=== PATIENT | male | born 1960 | race Caucasian/White ===

== ENCOUNTER 2017-08-05 12:15 | Inpatient (IN) ==
--- NOTE | 2017-08-05 12:29 | Emergency Department Note ---
Disposition Clinical Impression: Seizure Syncope Qualifiers: Syncope type: unspecified Qualified Code(s): R55 - Syncope and collapse Headache Qualifiers: Headache type: unspecified Headache chronicity pattern: unspecified pattern Intractability: not intractable Qualified Code(s): R51 - Headache Leukocytosis Qualifiers: Leukocytosis type: unspecified Qualified Code(s): D72.829 - Elevated white blood cell count, unspecified Disposition: Admitted As Inpatient Condition: Good Referrals: NONE,PCP [Primary Care Provider] - Forms: ED Satisfaction Letter Time of Disposition: 15:30 Altered Mental Status HPI - General Chief Complaint: ED Altered Mental Status Stated Complaint: vomiting, confusion, poss seizure Time Seen by Provider: 08/05/17 12:18 Source: patient Mode of arrival: ambulatory Limitations: no limitations Nursing Notes Reviewed: Yes Vital Signs Reviewed: Yes - History of Present Illness HPI Narrative: Patient is a 56-year-old male with past medical history of chronic back pain, currently takes Percocet, tramadol, Neurontin, chronic back pain. He also has a history of hypertension and takes losartan. Initially evening, the patient had multiple episodes of nausea, vomiting, diarrhea. He states that he was unable to sleep. During that time he also had a migraine and took his blood pressure and noted that it was very high. believes that he took 2 extra doses of his losartan. This morning, the patient yelled out, when the found him in the was not responding, had his tongue out, was laying on his side and rolling back and forth. denied seeing any tonic-clonic activity. No laceration to tongue, no urination. The patient was not oriented to person, place, or time when the found him. EMS was called. EMS states that the patient was not oriented to person, place, time on their exam either. During the drive here over 30 minutes, the patient became completely alert, oriented 3. No focal neurologic deficits were found. The patient himself denies any current symptoms of chest pain, shortness breath, nausea, vomiting, diarrhea, abdominal pain, neck pain, fevers, any numbness, tingling, weakness. He does complain of lumbar back pain that is chronic. - Related Data Home Medications Medication Instructions Recorded Confirmed Cymbalta 60 mg PO DAILY 08/05/17 08/05/17 Gabapentin [Neurontin] 100 mg PO DAILY 08/05/17 08/05/17 Losartan [Cozaar] 100 mg PO DAILY 08/05/17 08/05/17 OxyCODONE/APAP 10/325 [Percocet 15 mg PO 5XD 08/05/17 08/05/17 10/325 MG] Tramadol HCl [Ultram] 50 mg PO QID 08/05/17 08/05/17 Allergies Allergy/AdvReac Type Severity Reaction Status Date / Time codeine Allergy Rash Verified 02/20/15 09:09 All systems ED: reviewed and negative except as stated. Constitutional: Denies: fever Cardiovascular: Denies: chest pain Respiratory: Denies: cough, dyspnea Gastrointestinal: Denies: abdominal pain, nausea, vomiting, diarrhea Genitourinary: Denies: urgency, dysuria, frequency, hematuria Integumentary: Denies: rash Neurological: Denies: headache, weakness, numbness, paresthesias Past Medical History - Past Medical History Attestation: Yes The following information was validated with the patient. Source: patient Medical history: Reports: other Surgical history: Reports: other Psychiatric history: Reports: no psych history - Social History Smoking Status: Never smoker Alcohol use: Reports: none Drug use: Reports: none Physical Exam - General Limitations: no limitations General appearance: alert, in no apparent distress - Head Head exam: atraumatic, normocephalic, normal inspection - Eye Eye exam: Present: normal appearance, PERRL, EOMI - ENT ENT exam: normal exam, normal oropharynx, mucous membranes moist - Neck Neck exam: Present: normal inspection, full ROM, trachea midline - Chest Chest inspection: Present: normal inspection, symmetric chest wall rise - Respiratory Respiratory exam: Present: normal lung sounds bilaterally - Cardiovascular Cardiovascular exam: Present: regular rate, normal rhythm, normal heart sounds - Abdominal Exam Abdominal exam: Present: soft, Non-Tender. Absent: tenderness, distention, guarding, rebound, rigidity - Extremities Exam Extremities exam: Present: normal inspection, full ROM. Absent: tenderness, pedal edema - Neurological Exam Neurological exam: Present: alert, oriented X3, CN II-XII intact. Absent: motor sensory deficit - Expanded Neurological Exam Patient oriented to: Present: person, place, time Speech: Present: fluid speech Cranial nerves: EOM function (II, III, IV, ): Normal, facial sensation (V): Normal, facial palsy (VII): Normal, spinal accessory function (XI): Normal, tongue deviation (XII): Normal Motor strength - LUE: 5/5 Motor strength - RUE: 5/5 Motor strength - LLE: 5/5 Motor strength - RLE: 5/5 Sensory exam upper extremity: light touch: Normal Sensory exam lower extremity: light touch: Normal Coma Scale Eye Opening: Spontaneous Coma Scale Motor Response: Obeys Commands Coma Scale Verbal Response: Oriented Coma Scale Total: 15 - Psychiatric Psychiatric exam: Present: normal affect, normal mood - Skin Skin exam: Present: warm, dry, intact, normal color Course Course Narrative: Currently, patient is alert and oriented 3, no focal neuro deficits. From description of events, it is unclear if patient had syncope or possible seizure- like activity. It does sound like he had a post ictal period. We will obtain CT of the head and neck, basic blood work, chest x-ray, EKG, troponin. We will consider loading with Keppra. 15:25 workup shows leukocytosis of 25. Otherwise, no acute intracranial process. No major electrolyte abnormality. Urinalysis negative. His x-ray did show a right upper lobe pulmonary mass versus nodule versus opacity. I did recommend to the patient that he eventually have a CT evaluation of this area within the next 3-6 months to assess for any changes in size. Patient is now complaining of headache. I talked with neurology and they did not want me to load with Keppra as a stated that he would be unusual for the patient to have new onset epilepsy at his age. They recommended a lumbar puncture to assess for anything like herpetic encephalitis or meningitis. I discussed thoroughly the risk and benefits of the lumbar puncture and the patient has refused. He is adamant about not having the procedure done. He understands that if he does not have this done, there can be information meningitis or herpetic encephalitis. He states that he will only do lumbar puncture if he is sedated. We will recommend hospitalist that interventional radiology be contacted for lumbar puncture. In the meantime, patient is empirically started on vancomycin , gentamicin, ampicillin, Rocephin, acyclovir. Patient is given Toradol addition for headache. He will be admitted for further care and workup. Consult has been placed to neurology. Currently syncope vs seizure vs encephalitis/meningitis. Vital Signs Temperature 98.7 F 08/05/17 12:28 Pulse Rate 59 08/05/17 12:28 Respiratory Rate 23 08/05/17 12:28 Blood Pressure 192/136 08/05/17 12:28 O2 Sat by Pulse Oximetry 98 08/05/17 12:28 Temperature 98.7 F 08/05/17 12:28 Pulse Rate 81 08/05/17 15:02 Respiratory Rate 16 08/05/17 15:02 Blood Pressure 200/143 08/05/17 15:02 O2 Sat by Pulse Oximetry 96 08/05/17 15:02 Oxygen Delivery Oxygen Delivery Room Air Altered Mental Status - MDM Narrative Medical decision making narrative: Currently, patient is alert and oriented 3, no focal neuro deficits. From description of events, it is unclear if patient had syncope or possible seizure- like activity. It does sound like he had a post ictal period. We will obtain CT of the head and neck, basic blood work, chest x-ray, EKG, troponin. We will consider loading with Keppra. 15:25 workup shows leukocytosis of 25. Otherwise, no acute intracranial process. No major electrolyte abnormality. Urinalysis negative. His x-ray did show a right upper lobe pulmonary mass versus nodule versus opacity. I did recommend to the patient that he eventually have a CT evaluation of this area within the next 3-6 months to assess for any changes in size. Patient is now complaining of headache. I talked with neurology and they did not want me to load with Keppra as a stated that he would be unusual for the patient to have new onset epilepsy at his age. They recommended a lumbar puncture to assess for anything like herpetic encephalitis or meningitis. I discussed thoroughly the risk and benefits of the lumbar puncture and the patient has refused. He is adamant about not having the procedure done. He understands that if he does not have this done, there can be information meningitis or herpetic encephalitis. He states that he will only do lumbar puncture if he is sedated. We will recommend hospitalist that interventional radiology be contacted for lumbar puncture. In the meantime, patient is empirically started on vancomycin , gentamicin, ampicillin, Rocephin, acyclovir. Patient is given Toradol addition for headache. He will be admitted for further care and workup. Consult has been placed to neurology. Currently syncope vs seizure vs encephalitis/meningitis. - Medical Records Medical records reviewed: Yes I reviewed the patient's medical records. - Lab Data Lab results reviewed: Yes I reviewed the patient's lab results. Result diagrams: 08/05/17 12:26 08/05/17 12:26 Lab Results 08/05/17 08/05/17 08/05/17 Range/Units 12:26 12:26 12:26 WBC 25.0 H (4.3-11.1) K/mcL RBC 5.04 (4.19-5.50) M/mcL Hgb 15.4 (12.9-16.9) g/dL Hct 42.3 (37.5-50.1) % MCV 83.9 (83.0-100.0) fL MCH 30.6 (28.0-33.3) pg MCHC 36.4 H (31.6-35.5) g/dL RDW 12.8 (11.5-14.5) % Plt Count 301 (140-400) K/mcL MPV 8.9 L (9.4-12.4) fL Seg Neutrophils % 86.0 % Band Neutrophils % 8.0 H (0-4) % Lymphocytes % 6.0 % Neutrophils # 23.5 H (1.6-8.9) K/mcL Lymphocytes # 1.5 (0.6-4.6) K/mcL Platelet Estimate Normal (Normal) PT 11.4 (9.4-12.1) Seconds INR 1.1 APTT 29.3 (26.0-36.0) Seconds Sodium 130 L (136-145) mEq/L Potassium 4.1 (3.5-5.1) mEq/L Chloride 95 L (98-107) mEq/L Carbon Dioxide 19 L (23-29) mEq/L BUN 10 (6-20) mg/dL Creatinine 0.85 (0.70-1.30) mg/dL Est GFR ( Amer) > 60 (> 60) Est GFR (Non-Af Amer) > 60 (> 60) BUN/Creatinine Ratio 12 (6-26) Glucose 223 H (70-105) mg/dL Calculated Osmolality 276 L (280-300) Calcium 10.0 (8.6-10.3) mg/dL Total Bilirubin 0.6 (0.3-1.0) mg/dL AST 26 (13-39) Units/L ALT 22 (7-52) Units/L Alkaline Phosphatase 136 H (34-104) Units/L Troponin I < 0.03 (< 0.04) ng/mL Serum Total Protein 7.8 (6.4-8.9) g/dL Albumin 4.9 (3.5-5.7) g/dL Globulin 2.9 (2.4-3.5) g/dL Albumin/Globulin Ratio 1.7 (1.1-2.2) Urine Color (Yellow) Urine Clarity (Clear) Urine pH (5.0-8.0) pH Units Ur Specific [place] (1.010-1.025) Urine Protein (Neg-Trace) mg/dL Urine Glucose (UA) (Normal) mg/dL Urine Ketones (Negative) mg/dL Urine Blood (Negative) Urine Nitrite (Negative) Urine Bilirubin (Negative) Urine Urobilinogen (Normal) mg/dL Ur Leukocyte Esterase (Negative) Urine Microscopic RBC (0-3) per hpf Urine Microscopic WBC (0-3) per hpf Ur Squamous Epith Cells (None-Few) per lpf Urine Bacteria (None-Few) per hpf Hyaline Casts (None-Few) per lpf Ur Culture Indicated? (NO) 08/05/17 Range/Units 12:40 WBC (4.3-11.1) K/mcL RBC (4.19-5.50) M/mcL Hgb (12.9-16.9) g/dL Hct (37.5-50.1) % MCV (83.0-100.0) fL MCH (28.0-33.3) pg MCHC (31.6-35.5) g/dL RDW (11.5-14.5) % Plt Count (140-400) K/mcL MPV (9.4-12.4) fL Seg Neutrophils % % Band Neutrophils % (0-4) % Lymphocytes % % Neutrophils # (1.6-8.9) K/mcL Lymphocytes # (0.6-4.6) K/mcL Platelet Estimate (Normal) PT (9.4-12.1) Seconds INR APTT (26.0-36.0) Seconds Sodium (136-145) mEq/L Potassium (3.5-5.1) mEq/L Chloride (98-107) mEq/L Carbon Dioxide (23-29) mEq/L BUN (6-20) mg/dL Creatinine (0.70-1.30) mg/dL Est GFR ( Amer) (> 60) Est GFR (Non-Af Amer) (> 60) BUN/Creatinine Ratio (6-26) Glucose (70-105) mg/dL Calculated Osmolality (280-300) Calcium (8.6-10.3) mg/dL Total Bilirubin (0.3-1.0) mg/dL AST (13-39) Units/L ALT (7-52) Units/L Alkaline Phosphatase (34-104) Units/L Troponin I (< 0.04) ng/mL Serum Total Protein (6.4-8.9) g/dL Albumin (3.5-5.7) g/dL Globulin (2.4-3.5) g/dL Albumin/Globulin Ratio (1.1-2.2) Urine Color Yellow (Yellow) Urine Clarity Clear (Clear) Urine pH 6.0 (5.0-8.0) pH Units Ur Specific [place] 1.016 (1.010-1.025) Urine Protein 100 H (Neg-Trace) mg/dL Urine Glucose (UA) 100 H (Normal) mg/dL Urine Ketones Negative (Negative) mg/dL Urine Blood Moderate H (Negative) Urine Nitrite Negative (Negative) Urine Bilirubin Negative (Negative) Urine Urobilinogen Normal (Normal) mg/dL Ur Leukocyte Esterase Negative (Negative) Urine Microscopic RBC 5-15 H (0-3) per hpf Urine Microscopic WBC 0-3 (0-3) per hpf Ur Squamous Epith Cells Few (None-Few) per lpf Urine Bacteria None Seen (None-Few) per hpf Hyaline Casts None Seen (None-Few) per lpf Ur Culture Indicated? NO (NO) - Radiology Data Radiology results reviewed: Yes I reviewed the patient's radiology results. Chest X-Ray 08/05/17 12:26 IMPRESSION: 1. Questionable right infrahilar airspace opacity or mass. Consider further evaluation with CT. 2. Pulmonary vascular congestion. D/ / Akash Pride MD / Akash Pride MD Interpreting Provider: Akash Pride MD Cervical Spine CT 08/05/17 12:28 IMPRESSION: 1. No acute intracranial abnormality. 2. Paranasal sinusitis, as detailed above. 3. Mild left mastoid disease. 4. No acute fracture or subluxation of the cervical spine. D/ /05/2017 13:35:34 Otis Delgado MD / amor Interpreting Provider: Otis Delgado MD Head CT 08/05/17 12:28 IMPRESSION: 1. No acute intracranial abnormality. 2. Paranasal sinusitis, as detailed above. 3. Mild left mastoid disease. 4. No acute fracture or subluxation of the cervical spine. D/ /05/2017 13:35:34 Otis Delgado MD / amor Interpreting Provider: Otis Delgado MD - EKG Data EKG attestation: Yes I reviewed and interpreted this EKG. EKG results narrative: 08/05/2017 at 12:23. Sinus bradycardia. Rate 58. AK 151. QRS 99. QTc 440. Normal axis. No acute ST elevation or depression. TPA Checklist - LKW: 3-4.5 hrs Add. Warnings/Precautions Patient/family understanding: The patient/family members have been counseled and understood the risk, benefit , and alternatives of treatment. S.B.A.R. - S.B.A.R. Situation: Demographics, MOA Background: Presenting Complaint, Relevant PMH, Meds, & Allergies Assessment: Vital Signs, Course and respsone to treatment, Exam Concerns, Patient/Family Expectation, Pertinant Lab Results Recommendation: Barrier(s) to disposition, Recommendation based on pending studies, treatments, or consults S.B.A.R. Report Given to: Dr. Saldaña
[2017-08-05 12:41] LABS: Hematocrit 42.3 % (37.5-50.1); Hemoglobin 15.4 g/dL (12.9-16.9); Lymphocytes # 1.5 K/mcL (0.6-4.6); Mean Corpuscular HGB Conc 36.4 g/dL (31.6-35.5); Mean Corpuscular Hemoglobin 30.6 pg (28.0-33.3); Mean Corpuscular Volume 83.9 fL (83.0-100.0); Mean Platelet Volume 8.9 fL (9.4-12.4); Platelet Count 301 K/mcL (140-400); Red Blood Count 5.04 M/mcL (4.19-5.50); Red Cell Distribution Width 12.8 % (11.5-14.5)
[2017-08-05 12:47] LABS: INR 1.1; Prothrombin Time 11.4 Seconds (9.4-12.1)
[2017-08-05 12:49] LABS: Activated Partial Thrombo Time 29.3 Seconds (26.0-36.0)
[2017-08-05 12:59] LABS: Troponin I < 0.03 ng/mL (< 0.04)
[2017-08-05 13:11] LABS: Alanine Aminotransferase 22 Units/L (7-52); Albumin 4.9 g/dL (3.5-5.7); Albumin/Globulin Ratio 1.7 (1.1-2.2); Alkaline Phosphatase 136 Units/L (34-104); Aspartate Amino Transferase 26 Units/L (13-39); BUN/Creatinine Ratio 12 (6-26); Bilirubin,Total 0.6 mg/dL (0.3-1.0); Blood Urea Nitrogen 10 mg/dL (6-20); Carbon Dioxide 19 mEq/L (23-29); Chloride 95 mEq/L (98-107); Globulin 2.9 g/dL (2.4-3.5); Glucose 223 mg/dL (70-105); Osmolality,Calculated 276 (280-300); Potassium 4.1 mEq/L (3.5-5.1); Sodium 130 mEq/L (136-145); Total Protein 7.8 g/dL (6.4-8.9); eGFR For African Americans > 60 (> 60); eGFR For Non-African Americans > 60 (> 60)
[2017-08-05 13:13] LABS: Bilirubin,Urine Negative (Negative); Blood,Urine Moderate (Negative); Clarity,Urine Clear (Clear); Color,Urine Yellow (Yellow); Glucose,Urine (UA) 100 mg/dL (Normal); Ketones,Urine Negative (Negative); Leukocyte Esterase,Urine Negative (Negative); Nitrite,Urine Negative (Negative); Protein,Urine 100 mg/dL (Neg-Trace); Specific Gravity,Urine 1.016 (1.010-1.025); Urobilinogen,Urine Normal (Normal)
[2017-08-05 13:18] LABS: Bacteria,Urine None Seen per hpf (None-Few); Hyaline Casts,Urine None Seen per lpf (None-Few); Squamous Epithelial Cell,Urine Few per lpf (None-Few); WBC,Urine 0-3 per hpf (0-3)
[2017-08-05 13:50] LABS: Neutrophils # 23.5 K/mcL (1.6-8.9); Platelet Estimate Normal (Normal)
[2017-08-05] MEDS ORDERED: *HR* OxyCODONE/APAP 10/325 TABLET PO ONE (14:05)
[2017-08-05] MEDS ORDERED: Ampicillin 2 GM in 0.9 % Sodium Chloride Mini Bag 100 ML IVPB ONE (14:07)
[2017-08-05] MEDS ORDERED: cefTRIAXone 2,000 MG in Water for inj. (sterile) 20 ML 20 ML IVP ONE (14:08)
[2017-08-05] MEDS ORDERED: Acyclovir 1,000 MG in D5% in Water 250 ML IVPB ONE (14:12)
[2017-08-05] MEDS ORDERED: Gentamicin 440 MG in 0.9 % Sodium Chloride 100 ML IVPB ONE (15:00)
[2017-08-05] MEDS ORDERED: 0.9 % Sodium Chloride 1,000 ML IVC ONE (15:01)
--- NOTE | 2017-08-05 15:06 | Emergency Department Note ---
Disposition Clinical Impression: Seizure Disposition: Admitted As Inpatient Referrals: NONE,PCP [Primary Care Provider] - Forms: ED Satisfaction Letter General Adult HPI - General Chief complaint: ED Altered Mental Status Stated complaint: vomiting, confusion, poss seizure Time Seen by Provider: 08/05/17 12:18 Source: patient Mode of arrival: ambulatory Limitations: no limitations - History of Present Illness Pain Scale: 10 - Related Data Home Medications Medication Instructions Recorded Confirmed Cymbalta 60 mg PO DAILY 08/05/17 08/05/17 Gabapentin [Neurontin] 100 mg PO DAILY 08/05/17 08/05/17 Losartan [Cozaar] 100 mg PO DAILY 08/05/17 08/05/17 OxyCODONE/APAP 10/325 [Percocet 15 mg PO 5XD 08/05/17 08/05/17 10/325 MG] Tramadol HCl [Ultram] 50 mg PO QID 08/05/17 08/05/17 Allergies Allergy/AdvReac Type Severity Reaction Status Date / Time codeine Allergy Rash Verified 02/20/15 09:09 Constitutional: Denies: fever Cardiovascular: Denies: chest pain Respiratory: Denies: cough, dyspnea Gastrointestinal: Denies: abdominal pain, nausea, vomiting, diarrhea Genitourinary: Denies: urgency, dysuria, frequency, hematuria Integumentary: Denies: rash Neurological: Denies: headache, weakness, numbness, paresthesias Past Medical History - Past Medical History Medical history: Reports: other Surgical history: Reports: other Psychiatric history: Reports: no psych history - Social History Smoking Status: Never smoker Alcohol use: Reports: none Drug use: Reports: none Physical Exam - General Limitations: no limitations General appearance: alert, in no apparent distress Course Vital Signs Temperature 98.7 F 08/05/17 12:28 Pulse Rate 59 08/05/17 12:28 Respiratory Rate 23 08/05/17 12:28 Blood Pressure 192/136 08/05/17 12:28 O2 Sat by Pulse Oximetry 98 08/05/17 12:28 Temperature 98.7 F 08/05/17 12:28 Pulse Rate 81 08/05/17 15:02 Respiratory Rate 16 08/05/17 15:02 Blood Pressure 200/143 08/05/17 15:02 O2 Sat by Pulse Oximetry 96 08/05/17 15:02 Oxygen Delivery Oxygen Delivery Room Air Medical Decision Making - Lab Data Result diagrams: 08/05/17 12:26 08/05/17 12:26 Lab Results 08/05/17 08/05/17 08/05/17 Range/Units 12:26 12:26 12:26 WBC 25.0 H (4.3-11.1) K/mcL RBC 5.04 (4.19-5.50) M/mcL Hgb 15.4 (12.9-16.9) g/dL Hct 42.3 (37.5-50.1) % MCV 83.9 (83.0-100.0) fL MCH 30.6 (28.0-33.3) pg MCHC 36.4 H (31.6-35.5) g/dL RDW 12.8 (11.5-14.5) % Plt Count 301 (140-400) K/mcL MPV 8.9 L (9.4-12.4) fL Seg Neutrophils % 86.0 % Band Neutrophils % 8.0 H (0-4) % Lymphocytes % 6.0 % Neutrophils # 23.5 H (1.6-8.9) K/mcL Lymphocytes # 1.5 (0.6-4.6) K/mcL Platelet Estimate Normal (Normal) PT 11.4 (9.4-12.1) Seconds INR 1.1 APTT 29.3 (26.0-36.0) Seconds Sodium 130 L (136-145) mEq/L Potassium 4.1 (3.5-5.1) mEq/L Chloride 95 L (98-107) mEq/L Carbon Dioxide 19 L (23-29) mEq/L BUN 10 (6-20) mg/dL Creatinine 0.85 (0.70-1.30) mg/dL Est GFR ( Amer) > 60 (> 60) Est GFR (Non-Af Amer) > 60 (> 60) BUN/Creatinine Ratio 12 (6-26) Glucose 223 H (70-105) mg/dL Calculated Osmolality 276 L (280-300) Calcium 10.0 (8.6-10.3) mg/dL Total Bilirubin 0.6 (0.3-1.0) mg/dL AST 26 (13-39) Units/L ALT 22 (7-52) Units/L Alkaline Phosphatase 136 H (34-104) Units/L Troponin I < 0.03 (< 0.04) ng/mL Serum Total Protein 7.8 (6.4-8.9) g/dL Albumin 4.9 (3.5-5.7) g/dL Globulin 2.9 (2.4-3.5) g/dL Albumin/Globulin Ratio 1.7 (1.1-2.2) Urine Color (Yellow) Urine Clarity (Clear) Urine pH (5.0-8.0) pH Units Ur Specific [place] (1.010-1.025) Urine Protein (Neg-Trace) mg/dL Urine Glucose (UA) (Normal) mg/dL Urine Ketones (Negative) mg/dL Urine Blood (Negative) Urine Nitrite (Negative) Urine Bilirubin (Negative) Urine Urobilinogen (Normal) mg/dL Ur Leukocyte Esterase (Negative) Urine Microscopic RBC (0-3) per hpf Urine Microscopic WBC (0-3) per hpf Ur Squamous Epith Cells (None-Few) per lpf Urine Bacteria (None-Few) per hpf Hyaline Casts (None-Few) per lpf Ur Culture Indicated? (NO) 08/05/17 Range/Units 12:40 WBC (4.3-11.1) K/mcL RBC (4.19-5.50) M/mcL Hgb (12.9-16.9) g/dL Hct (37.5-50.1) % MCV (83.0-100.0) fL MCH (28.0-33.3) pg MCHC (31.6-35.5) g/dL RDW (11.5-14.5) % Plt Count (140-400) K/mcL MPV (9.4-12.4) fL Seg Neutrophils % % Band Neutrophils % (0-4) % Lymphocytes % % Neutrophils # (1.6-8.9) K/mcL Lymphocytes # (0.6-4.6) K/mcL Platelet Estimate (Normal) PT (9.4-12.1) Seconds INR APTT (26.0-36.0) Seconds Sodium (136-145) mEq/L Potassium (3.5-5.1) mEq/L Chloride (98-107) mEq/L Carbon Dioxide (23-29) mEq/L BUN (6-20) mg/dL Creatinine (0.70-1.30) mg/dL Est GFR ( Amer) (> 60) Est GFR (Non-Af Amer) (> 60) BUN/Creatinine Ratio (6-26) Glucose (70-105) mg/dL Calculated Osmolality (280-300) Calcium (8.6-10.3) mg/dL Total Bilirubin (0.3-1.0) mg/dL AST (13-39) Units/L ALT (7-52) Units/L Alkaline Phosphatase (34-104) Units/L Troponin I (< 0.04) ng/mL Serum Total Protein (6.4-8.9) g/dL Albumin (3.5-5.7) g/dL Globulin (2.4-3.5) g/dL Albumin/Globulin Ratio (1.1-2.2) Urine Color Yellow (Yellow) Urine Clarity Clear (Clear) Urine pH 6.0 (5.0-8.0) pH Units Ur Specific [place] 1.016 (1.010-1.025) Urine Protein 100 H (Neg-Trace) mg/dL Urine Glucose (UA) 100 H (Normal) mg/dL Urine Ketones Negative (Negative) mg/dL Urine Blood Moderate H (Negative) Urine Nitrite Negative (Negative) Urine Bilirubin Negative (Negative) Urine Urobilinogen Normal (Normal) mg/dL Ur Leukocyte Esterase Negative (Negative) Urine Microscopic RBC 5-15 H (0-3) per hpf Urine Microscopic WBC 0-3 (0-3) per hpf Ur Squamous Epith Cells Few (None-Few) per lpf Urine Bacteria None Seen (None-Few) per hpf Hyaline Casts None Seen (None-Few) per lpf Ur Culture Indicated? NO (NO) Attestation Statement - Attestation Attestation: I examined this patient and my medical decision-making was reviewed with the Resident Physician. I agree with the documented findings, disposition and treatment plan as described except to the extent set forth below. 56 year old male prsentse to the ED with complaints of new onset seizure with elevated WBC and post -ictal period after witnessed seizure. We are concernd for mengigitis/encephaltiis and have consutled neurolgoy. He has delcined LP secondary to chronic back pain and woul dike IR to attempt LP unders sedation. Patient has been empirically started on amp/rocpehin/vanc/acyclovir and admit to medicine
[2017-08-05] MEDS ORDERED: Ketorolac 15 MG/ML VIAL IVP ONE (15:25)
[2017-08-05] MEDS: niCARdipine 40 MG/200 ML MLS IVC SCH ×2 (16:11→23:16)
[2017-08-05 16:17] LABS: Bilirubin,Direct 0.1 mg/dL (0.0-0.2); Bilirubin,Indirect 0.5 mg/dL (0.0-1.2)
[2017-08-05] MEDS ORDERED: Naloxone 0.4 MG/ML INJ IVP PRN (17:04)
--- NOTE | 2017-08-05 17:18 | Internal Med History&Physical ---
Date of Encounter: 08/05/17 Time of Encounter: 17:11 Internal Medicine - H&P: HPI Chief complaint: headache/Seizure like acivity. Admitted From: Emergency Dept Plans for Post Hospital Care: Home History of present illness: Mr. Giang is a 56 year old male was a background medical history of hypertension, chronic back pain for which he is getting evaluated. Patient takes multiple pain medications/muscle relaxants for chronic back pain. This morning it was noted by patient's that patient was restless and was passed out with from the tongue and eyes were rolled back. She was concern about this finding. She calls called and decided to get patient to emergency room for further evaluation. According to the squad patient was alert oriented and they brought him to emergency department. Patient had a nausea vomiting diarrhea for the past 3-4 days. Patient denies chest pain, shortness of breath, dizziness. Workup in the emergency room: Patient was evaluated in the emergency room. Basic labs were drawn. Noted that patient has a leukocytosis. Band cells were 8%. Chest x-ray: Possible hilar mass. CT head/CT neck: Negative for any acute fractures/intracranial event. Reason for admission: Possible meningitis/encephalitis. New-onset seizure cannot be ruled out. Family history: Noncontributory Past Med Surg Social Fam HX - Past Medical History Medical history: other Psychiatric history: no psych history - Past Surgical History Surgical History: other - Social History Smoking Status: Never smoker Alcohol use: none Drug use: none Internal Medicine - H&P: Meds Duloxetine HCl [Cymbalta] 60 mg PO BID 08/05/17 [History] Gabapentin [Neurontin] 600 mg PO DAILY 08/05/17 [History] Losartan [Cozaar] 100 mg PO DAILY 08/05/17 [History] Oxycodone HCl 15 mg PO Q4-6H PRN 08/05/17 [History] Tramadol HCl [Ultram] 50 mg PO QID PRN 08/05/17 [History] 3 Allergy/AdvReac Type Severity Reaction Status Date / Time codeine Allergy Rash Verified 08/05/17 15:37 All Systems PM: A 10-system review of systems was performed and is negative for pertinent findings except as documented above in the HPI. - Constitutional Constitutional: lethargy, malaise, weakness, no chills, no fever(s), no night sweats - EENT Eyes: no change in vision, no discharge, no pain, no photophobia Ears: no ear discharge, no ear pain, no tinnitus Nose, mouth and throat: no dysphagia, no nasal discharge, no neck pain, no sore throat - Cardiovascular Cardiovascular ROS IM: no chest pain, no diaphoresis, no dyspnea, no lightheadedness, no palpitations, no syncope - Respiratory Respiratory: no cough, no dyspnea, no wheezing, no excessive phlegm production - Gastrointestinal Gastrointestinal: no abdominal pain, no diarrhea, no hematemesis, no hematochezia, no melena, no nausea, no vomiting - Musculoskeletal Musculoskeletal ROS IM: no numbness, no tingling - Integumentary Integumentary IM: no rash, no unusual bruising - Neurological Neurological ROS: abnormal gait, confusion, headache(s), paresthesias, no convulsions, no focal weakness, no numbness, no tingling, no tremor(s) - Hematologic/Lymphatic Hematologic/Lymphatic: no easy bruising - Constitutional Vitals: Temp Pulse Resp BP Pulse Ox 98.7 F 101 12 162/112 97 08/05/17 12:28 08/05/17 16:17 08/05/17 16:17 08/05/17 16:43 08/05/17 16:17 General appearance: Present: A&O X 3, morbidly obese, pleasant, no acute distress, answers questions appropriately - Head Head exam: Present: atraumatic, normocephalic - Eye Eye exam: Present: PERRL, conjuntiva pink, sclera anicteric Pupils: Present: PERRL - Neck Neck exam general surgery: Present: supple, trachea midline. Absent: lymphadenopathy - Respiratory Respiratory exam: Present: CTAB. Absent: accessory muscle use, rales, rhonchi, wheezes - Cardiovascular Cardiovascular exam: Present: RRR, +S1, +S2. Absent: diastolic murmur, gallop, rubs, systolic murmur - GI/Abdominal GI/Abdominal exam: Present: normal bowel sounds, soft, no peritoneal signs. Absent: distended, tenderness - Extremities Exam Extremities exam: Present: warm, radial pulses palpable and symmetrical. Absent : calf tenderness, cyanotic, pedal edema - Neurological Exam Neurological exam: Present: CN II-XII intact, oriented X3, no focal deficits. Absent: pronater drift, facial droop, speech deficit - Skin Skin exam: Present: dry, intact Internal Med - H&P Results - Labs CBC & Chem 7: 08/05/17 12:26 08/05/17 12:26 - Assessment and plan (1) Headache Current Visit: Yes Status: Acute Assessment and plan: 56/male Ongoing back pain. Had a GI symptoms for past 2-3 days. Came in with seizure-like activity. Emergency room resident called neurologist. We will follow the recommendations from neurology. At this point neurologist preferred to treat as a meningitis/encephalitis. Plan: Admit as inpatient. Vancomycin/ampicillin/ceftriaxone/acyclovir. MRI ordered. EEG ordered. Close monitoring of the vital status. I examined this patient in the emergency department room #21. All family members were bedside. plan of care discussed with them. Qualifiers: Headache type: unspecified Headache chronicity pattern: unspecified pattern Intractability: not intractable Qualified Code(s): R51 - Headache (2) Leukocytosis Current Visit: Yes Status: Acute Assessment and plan: Noted that patient's white blood cell count is 25. patient is a 8% bandemia. We will continue broad-spectrum antibiotics. Qualifiers: Leukocytosis type: bandemia Qualified Code(s): D72.825 - Bandemia (3) Seizure Current Visit: Yes Status: Acute Assessment and plan: Patient does have a seizure-like activity. I spoke personally with the ER resident who was advised by neurology not to start on any antiepileptic medication. Seizure precaution Fall precaution (4) Backache Current Visit: Yes Status: Acute Assessment and plan: Patient is known to have a low backache for many months. He is getting monitored by pain specialist. Patient is on multiple pain medication. We will resume some of them. Close monitoring of the patient's back pain Qualifiers: Back pain location: low back pain Chronicity: unspecified Back pain laterality: unspecified Sciatica presence: without sciatica Qualified Code(s ): M54.5 - Low back pain (5) Hypertension Current Visit: Yes Status: Acute Assessment and plan: Patient is known to have essential hypertension. patient is on angiotensin receptor preeti. We will closely monitor patient's blood pressure. We will continue home medication. Qualifiers: Hypertension type: essential hypertension Qualified Code(s): I10 - Essential (primary) hypertension (6) DVT prophylaxis Current Visit: Yes Status: Acute Assessment and plan: Antiembolic stockings. Medical decision making: This patient has a moderate to severe risk of worsening in spite of being on appropriate medication due to the underlying complex comorbid conditions. - Time Spent With Patient Total time spent is greater than 50% in coordination of care (as documented) at patient's floor/unit and/or counseling patient:
[2017-08-05] MEDS: *HR* OxyCODONE Immed Rel 15 MG TABLET PO PRN ×2 (17:41→21:32)
[2017-08-05] MEDS: Ampicillin 2 GM in 0.9 % Sodium Chloride Mini Bag 100 ML IVPB SCH ×2 (17:46→23:02)
[2017-08-05] MEDS ORDERED: Vancomycin 1,750 MG in 0.9 % Sodium Chloride 250 ML IVPB SCH (18:00)
[2017-08-05] MEDS: traMADol 50 MG TABLET PO PRN (19:38)
[2017-08-05] MEDS ORDERED: *HR* FentaNYL (PF) 100 MCG/2 ML VIAL IVP ONE (20:09)
[2017-08-05] MEDS: 0.9 % Sodium Chloride 1,000 ML IVC SCH (21:32)
[2017-08-05] MEDS: Acyclovir 750 MG in D5% in Water 250 ML IVPB SCH (23:03)
[2017-08-06] MEDS: cefTRIAXone 2,000 MG in Water for inj. (sterile) 20 ML 20 ML IVP SCH ×2 (02:12→14:40)
[2017-08-06] MEDS: *HR* OxyCODONE Immed Rel 15 MG TABLET PO PRN ×6 (02:13→23:06)
[2017-08-06] MEDS ORDERED: *HR* LORazepam 2 MG/ML VIAL IVP ONE ×2 (02:29→12:53)
[2017-08-06] MEDS ORDERED: *HR* LORazepam 2 MG/ML VIAL ONE ×2 (02:42→12:55)
[2017-08-06] MEDS: niCARdipine 40 MG/200 ML MLS IVC SCH ×2 (03:51→15:28)
[2017-08-06] MEDS: Ampicillin 2 GM in 0.9 % Sodium Chloride Mini Bag 100 ML IVPB SCH ×2 (05:01→12:45)
[2017-08-06 05:43] LABS: Basophils % 0.1 %; Hematocrit 38.2 % (37.5-50.1); Immature Granulocytes % 0.6 % (0-4); Lymphocytes # 2.3 K/mcL (0.6-4.6); Lymphocytes % 10.1 %; Mean Corpuscular HGB Conc 35.1 g/dL (31.6-35.5); Mean Corpuscular Hemoglobin 29.8 pg (28.0-33.3); Mean Corpuscular Volume 84.9 fL (83.0-100.0); Mean Platelet Volume 8.6 fL (9.4-12.4); Monocytes # 1.3 K/mcL (0.0-1.3); Monocytes % 5.8 %; Neutrophils # 18.9 K/mcL (1.6-8.9); Platelet Count 214 K/mcL (140-400); Red Cell Distribution Width 12.9 % (11.5-14.5); Segmented Neutrophils % 83.4 %
[2017-08-06 05:44] LABS: Hemoglobin 13.4 g/dL (12.9-16.9)
[2017-08-06 05:49] LABS: INR 1.2; Prothrombin Time 12.6 Seconds (9.4-12.1)
[2017-08-06 06:08] LABS: Alanine Aminotransferase 14 Units/L (7-52); Albumin 4.4 g/dL (3.5-5.7); Albumin/Globulin Ratio 1.6 (1.1-2.2); Alkaline Phosphatase 108 Units/L (34-104); Aspartate Amino Transferase 16 Units/L (13-39); BUN/Creatinine Ratio 11 (6-26); Bilirubin,Total 0.5 mg/dL (0.3-1.0); Blood Urea Nitrogen 8 mg/dL (6-20); Carbon Dioxide 21 mEq/L (23-29); Chloride 102 mEq/L (98-107); Chol/HDL Ratio 7.8 (0-4.9); Cholesterol 242 mg/dL (< 200); Globulin 2.7 g/dL (2.4-3.5); Glucose 175 mg/dL (70-105); HDL Cholesterol 31 mg/dL (40-59); LDL Cholesterol,Calculated 158 mg/dL (0-99); Magnesium 1.7 mg/dL (1.6-2.6); Osmolality,Calculated 279 (280-300); Phosphorous 2.1 mg/dL (2.7-4.5); Potassium 3.3 mEq/L (3.5-5.1); Sodium 133 mEq/L (136-145); Total Protein 7.1 g/dL (6.4-8.9); Triglycerides 266 mg/dL (< 150); eGFR For African Americans > 60 (> 60); eGFR For Non-African Americans > 60 (> 60)
[2017-08-06] MEDS: traMADol 50 MG TABLET PO PRN ×2 (08:02→17:02)
[2017-08-06] MEDS: Gabapentin 300 MG CAPSULE PO SCH (08:02)
[2017-08-06] MEDS ORDERED: Aminoglycoside Consult 1 EACH MC ONE (08:20)
--- NOTE | 2017-08-06 08:30 | Neurology - Consult Note ---
Date of Encounter: 08/06/17 Time of Encounter: 08:26 Assessment and Plan (1) Headache Current Visit: Yes Status: Acute At this juncture I am not absolutely convinced that he had a seizure. The does not describe generalized tonic-clonic seizure activity. However certainly under the admitting circumstances is possible that he could have. His blood pressure was extremely elevated at 207/114. This could possibly of calls a seizure. He also had a slight temp, nausea ,vomiting and diarrhea. He might have gastroenteritis. Enteroviruses are common cause of aseptic meningitis. He did not bite his tongue, he did not lose urinary continence. There is no nuchal rigidity at the time. There is no evidence of encephalitis. I do feel it is reasonable to rule out the possibility of meningitis. I will therefore request a lumbar puncture through the radiology department since he does have chronic back pain. Maintain antibiotic therapy until the spinal tap results are back. LP will also rule out the possibility of aneurysmal leak or rupture. The initial CT scan of the brain was negative. I would also like to get an MRA scan of the brain as well. Further recommendations will be made upon the outcomes of these tests. Hold antiepileptic medications for now. Qualifiers: Headache type: unspecified Headache chronicity pattern: unspecified pattern Intractability: intractable Qualified Code(s): R51 - Headache History of Present Illness HPI: The chart was reviewed, patient was seen and examined. Mr. Giang is a very pleasant 56-year-old gentleman is being seen for neurologic consultation secondary to possible seizure and to rule out meningitis. Apparently he was fine when he went to bed the night before. The next morning his apparently heard noise upstairs and she heard him yell and she went to check on found him laying on the floor rolling side to side. She did not describe generalized tonic-clonic convulsive activity. She states it went on for about half an hour. He also complained of a tremendous headache. This throughout the day he had nausea vomiting and diarrhea. But he denied feeling ill or anything the night before he went to bed. Upon arrival to the emergency room his blood pressure was elevated at 207/114. And he was slightly febrile. Currently he is alert and oriented he is not confused. Reports state that he was confused yesterday. He only remembers bits and pieces of the events of yesterday. I did review the CT scan of the brain completed at the time of admission which was normal. He did not suffer any trauma he did not bite his tongue, did not lose urinary bladder control. I discussed the case with the ED attending yesterday. I recommend a lumbar puncture however the patient has a history of chronic back pain and wanted to have the procedure done under fluoroscopy or with sedation. He denies any prior history of seizure. One of his medications listed his Ultram which can decrease the seizure threshold. He denies nuchal rigidity or neck pain. However he states he did have some neck pain yesterday. Past Med Surg Social Fam HX - Past Medical History Medical history: other Psychiatric history: no psych history - Past Surgical History Surgical History: other - Social History Smoking Status: Never smoker Alcohol use: none Drug use: none Medications and Allergies Duloxetine HCl [Cymbalta] 60 mg PO BID 08/05/17 [History] Gabapentin [Neurontin] 600 mg PO DAILY 08/05/17 [History] Losartan [Cozaar] 100 mg PO DAILY 08/05/17 [History] Oxycodone HCl 15 mg PO Q4-6H PRN 08/05/17 [History] Tramadol HCl [Ultram] 50 mg PO QID PRN 08/05/17 [History] 3 Allergy/AdvReac Type Severity Reaction Status Date / Time codeine Allergy Rash Verified 08/05/17 15:37 All Systems: The remainder of the systems were reviewed and are negative Review of Systems: The balance of the systems review is negative. Physical Examination - Vital Signs Vital Signs: Initial Vital Signs Temp Pulse Resp BP Pulse Ox 98.7 F 59 23 192/136 98 08/05/17 12:28 08/05/17 12:28 08/05/17 12:28 08/05/17 12:28 08/05/17 12:28 - Neurologic Detailed motor examination: full strength in all major muscle groups Motor examination - right side: 07/28: deltoids, biceps, triceps, wrist flexion, wrist extension, collection agent, hip flexors, tibialis Anterior, quadriceps, toe extension (EHL), plantarflexion Motor examination - left side: 07/28: deltoids, biceps, triceps, wrist flexion, wrist extension, hip flexors, collection agent, quadriceps, tibialis Anterior, toe extension (EHL), plantarflexion Detailed sensory examination: other (Laboratory touch, deep touch, vibratory sense, proprioception, pain and temperature are all intact.) Mental Status Examination: awake, alert, oriented to person, oriented to place, oriented to time, follows commands appropriately, answers questions appropriately, no agnosia, no aphasia, no aproxia Cranial nerve examination: PERRL, EOMI, visual lockhart intact, corneal reflexes brisk symmetrically, sensory to face intact, mastication intact, no facial asymmetry is present, no dysarthria, hearing is intact symmetrically, soft palate elevates bilaterally upon phonation, gag reflex intact, flexes SCM and trapezius muscles symmetrically with full power, tongue protrudes midline, no atrophy or facial fasiculations present Cerebellar examination: no dysmetria, performs finger to nose and heel to beverly symmetrically without ataxia, no gait ataxia, no truncal ataxia, no difficulty with rapid alternating movements Results - Laboratory Findings CBC and BMP: 08/06/17 05:32 08/06/17 05:32 Abnormal lab findings: Abnormal lab results WBC 22.6 K/mcL (4.3-11.1) H 08/06/17 05:32 MPV 8.6 fL (9.4-12.4) L 08/06/17 05:32 Band Neutrophils % 8.0 % (0-4) H 08/05/17 12:26 Neutrophils # 18.9 K/mcL (1.6-8.9) H 08/06/17 05:32 PT 12.6 Seconds (9.4-12.1) H 08/06/17 05:32 Sodium 133 mEq/L (136-145) L 08/06/17 05:32 Potassium 3.3 mEq/L (3.5-5.1) L 08/06/17 05:32 Carbon Dioxide 21 mEq/L (23-29) L 08/06/17 05:32 Glucose 175 mg/dL (70-105) H 08/06/17 05:32 Calculated Osmolality 279 (280-300) L 08/06/17 05:32 Phosphorus 2.1 mg/dL (2.7-4.5) L 08/06/17 05:32 Alkaline Phosphatase 108 Units/L (34-104) H 08/06/17 05:32 Troponin I 0.04 ng/mL (< 0.04) H* 08/06/17 05:32 B-Natriuretic Peptide 215 pg/mL (Less than 100) H 08/06/17 05:32 Triglycerides 266 mg/dL (< 150) H 08/06/17 05:32 Cholesterol 242 mg/dL (< 200) H 08/06/17 05:32 LDL Cholesterol, Calc 158 mg/dL (0-99) H 08/06/17 05:32 VLDL Cholesterol, Calc 53 mg/dL (< 31) H 08/06/17 05:32 HDL Cholesterol 31 mg/dL (40-59) L 08/06/17 05:32 Cholesterol/HDL Ratio 7.8 (0-4.9) H 08/06/17 05:32 Urine Protein 100 mg/dL (Neg-Trace) H 08/05/17 12:40 Urine Glucose (UA) 100 mg/dL (Normal) H 08/05/17 12:40 Urine Blood Moderate (Negative) H 08/05/17 12:40 Urine Microscopic RBC 5-15 per hpf (0-3) H 08/05/17 12:40 Consult Discharge Plan - Plan Referrals: NONE,PCP [Primary Care Provider] -
[2017-08-06] MEDS ORDERED: *HR* FentaNYL (PF) 100 MCG/2 ML VIAL IVP ONE (08:36)
[2017-08-06] MEDS: Acyclovir 750 MG in D5% in Water 250 ML IVPB SCH ×3 (09:13→23:07)
--- NOTE | 2017-08-06 09:33 | Internal Med Progress Note ---
Date of Encounter: 08/06/17 Time of Encounter: 09:28 - Assessment and plan (1) Headache Current Visit: Yes Status: Acute Assessment and plan: SIRS, consider sepsis/Intractable headache, possible acute encephalitis Had a GI symptoms for past 2-3 days. Came in with possible seizure-like activity. Neurology was consulted, recommendations appreciated EEG, MRI and MRA of the brain were ordered, lumbar puncture pending The patient was offered Ativan as needed as he is anxious about having an MRI, requesting open MRI Continue: Vancomycin/ampicillin/ceftriaxone/acyclovir day #2. WBC 25, HR 121 Qualifiers: Headache type: unspecified Headache chronicity pattern: unspecified pattern Intractability: intractable Qualified Code(s): R51 - Headache (2) Seizure Current Visit: Yes Status: Acute Assessment and plan: Possible seizure-like activity. Seizure precaution Fall precaution (3) Leukocytosis Current Visit: Yes Status: Acute Assessment and plan: Noted that patient's white blood cell count is 25. patient is a 8% bandemia. We will continue broad-spectrum antibiotics. Qualifiers: Leukocytosis type: bandemia Qualified Code(s): D72.825 - Bandemia (4) Hypertension Current Visit: Yes Status: Acute Assessment and plan: accelerated HTN losartan nicardipine drip ordered Qualifiers: Hypertension type: essential hypertension Qualified Code(s): I10 - Essential (primary) hypertension (5) Backache Current Visit: Yes Status: Acute Assessment and plan: Chronic back pain Qualifiers: Back pain location: low back pain Chronicity: unspecified Back pain laterality: unspecified Sciatica presence: without sciatica Qualified Code(s ): M54.5 - Low back pain - Time Spent With Patient Total time spent is greater than 50% in coordination of care (as documented) at patient's floor/unit and/or counseling patient: - Subjective Interval history: Complaining of severe headache, no chest pain or shortness of breath, no abdominal pain or dysuria. No fevers overnight - Constitutional Vitals: Temp Pulse Resp BP Pulse Ox 98.0 F 110 18 147/88 94 08/06/17 07:36 08/06/17 07:36 08/06/17 07:36 08/06/17 07:36 08/06/17 07:36 General appearance: Present: A&O X 3, morbidly obese, pleasant, no acute distress, answers questions appropriately - Head Head exam: Present: atraumatic, normocephalic - Eye Eye exam: Present: PERRL, conjuntiva pink, sclera anicteric Pupils: Present: PERRL - Neck Neck exam general surgery: Present: supple, trachea midline. Absent: lymphadenopathy - Respiratory Respiratory exam: Present: CTAB. Absent: accessory muscle use, rales, rhonchi, wheezes - Cardiovascular Cardiovascular exam: Present: RRR, +S1, +S2. Absent: diastolic murmur, gallop, rubs, systolic murmur - GI/Abdominal GI/Abdominal exam: Present: normal bowel sounds, soft, no peritoneal signs. Absent: distended, tenderness - Extremities Exam Extremities exam: Present: warm, radial pulses palpable and symmetrical. Absent : calf tenderness, cyanotic, pedal edema - Neurological Exam Neurological exam: Present: CN II-XII intact, oriented X3, no focal deficits. Absent: pronater drift, facial droop, speech deficit Additional comments: No neck tenderness or stiffness - Skin Skin exam: Present: dry, intact Internal Medicine: Result - Labs CBC & Chem 7: 08/06/17 05:32 08/06/17 05:32 Labs: Short CBC 08/06/17 Range/Units 05:32 WBC 22.6 H (4.3-11.1) K/mcL Hgb 13.4 D (12.9-16.9) g/dL Hct 38.2 (37.5-50.1) % Plt Count 214 (140-400) K/mcL Neutrophils # 18.9 H (1.6-8.9) K/mcL BMP 08/06/17 05:32 Sodium 133 L Potassium 3.3 L Chloride 102 Carbon Dioxide 21 L BUN 8 Creatinine 0.74 Glucose 175 H Calcium 9.0 Cardiac Enzymes 08/05/17 08/05/17 08/06/17 Range/Units 17:27 23:09 05:32 Troponin I 0.03 0.04 H* 0.04 H* (< 0.04) ng/mL Liver Function 08/06/17 Range/Units 05:32 Total Bilirubin 0.5 (0.3-1.0) mg/dL AST 16 (13-39) Units/L ALT 14 (7-52) Units/L Alkaline Phosphatase 108 H (34-104) Units/L Albumin 4.4 (3.5-5.7) g/dL - ABG Interpretation ABG results: PT/INR, D-dimer PT 12.6 Seconds (9.4-12.1) H 08/06/17 05:32 - VTE Documentation of Mechanical Device: Graduated compression elastic hosiery Consult Discharge Plan - Plan Referrals: NONE,PCP [Primary Care Provider] -
[2017-08-06 12:15] LABS: Red Blood Cell,CSF < 0.002 M/mcL
[2017-08-06] MEDS: 0.9 % Sodium Chloride 1,000 ML IVC SCH (12:16)
[2017-08-06 12:19] LABS: Appearance,CSF Clear (Clear)
[2017-08-06 12:36] LABS: Glucose,CSF 100 mg/dL (40-70); Total Protein,CSF 72 mg/dL (15-45)
[2017-08-06] MEDS ORDERED: Acetaminophen/Butalbital/CaffeineTABLET PO ONE (14:30)
--- NOTE | 2017-08-06 15:58 | EEG/EMG/Oth Biometrics Report ---
EEG Procedure Report Date of procedure: 08/06/17 EEG Procedure: Routine EEG Procedure Note: This is a report of a 21 channel bipolar and referential montage EEG. A posterior dominant rhythm of 10 Hz moderate voltage alpha frequencies identified symmetrically in the posterior head regions. This rhythm attenuates symmetrically with eye opening. Hyperventilation is not performed during the recording. Periods of drowsiness and stage II sleep identified as reference by dropout of the posterior dominant rhythm, and the emergence of vertex activity, K complexes, and sleep spindles. Photic stimulation is performed and does not produce a driving response. The EKG rhythm strip reveals sinus tachycardia at 108 bpm. Impressions: This EEG recording is within normal limits. There is no evidence of epileptiform activity identified during the study. Sinus tachycardia at 108 bpm's identified. Comment: A normal EEG does not preclude a diagnosis of seizure or epilepsy. If the clinical suspicion for seizure activity is high, serial EEGs or perhaps a prolonged recording may increase the yield. Please correlate clinically.
[2017-08-06] MEDS: *HR* LORazepam 1 MG TABLET PO PRN (17:02)
[2017-08-07] MEDS: niCARdipine 40 MG/200 ML MLS IVC SCH ×3 (00:50→14:59)
[2017-08-07] MEDS: *HR* OxyCODONE Immed Rel 15 MG TABLET PO PRN ×6 (03:08→22:59)
[2017-08-07] MEDS: *HR* LORazepam 1 MG TABLET PO PRN ×2 (03:08→22:58)
--- NOTE | 2017-08-07 06:45 | Electrocardiograph Report ---
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
[2017-08-07 06:47] LABS: Hematocrit 38.8 % (37.5-50.1); Hemoglobin 13.3 g/dL (12.9-16.9); Mean Corpuscular HGB Conc 34.3 g/dL (31.6-35.5); Mean Corpuscular Hemoglobin 29.5 pg (28.0-33.3); Mean Platelet Volume 8.6 fL (9.4-12.4); Platelet Count 197 K/mcL (140-400); Red Blood Count 4.51 M/mcL (4.19-5.50)
[2017-08-07 06:54] LABS: BUN/Creatinine Ratio 13 (6-26); Blood Urea Nitrogen 9 mg/dL (6-20); Calcium 8.9 mg/dL (8.6-10.3); Carbon Dioxide 25 mEq/L (23-29); Chloride 103 mEq/L (98-107); Glucose 151 mg/dL (70-105); Osmolality,Calculated 282 (280-300); Potassium 3.5 mEq/L (3.5-5.1); Sodium 135 mEq/L (136-145); eGFR For African Americans > 60 (> 60); eGFR For Non-African Americans > 60 (> 60)
--- NOTE | 2017-08-07 06:55 | Electrocardiograph Report ---
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
--- NOTE | 2017-08-07 07:26 | Neurology Progress Note ---
Date of Encounter: 08/07/17 Time of Encounter: 07:24 Assessment and Plan (1) Headache Current Visit: Yes Status: Acute Qualifiers: Headache type: unspecified Headache chronicity pattern: unspecified pattern Intractability: intractable Qualified Code(s): R51 - Headache (2) Hypertensive urgency Current Visit: Yes Status: Acute It is my impression that the initial headache and confusion were multifactorial. He did have excessive nausea vomiting and diarrhea I believe that excessive Valsalva may have been playing a role in his acute headache, along with hypertensive urgency. Also believe that the hypertensive urgency contribute to the confusion. This morning his blood pressure is 186/136. There is no evidence of a central nervous system infectious, or vascular process. MRI/MRA were normal no evidence of aneurysm, the EEG was negative. I am not totally convinced that he truly had a generalized tonic-clonic seizure. At this point it is possible that perhaps back pain may be contributingto his ongoing hypertension, however at this juncture I would recommend normalizing his blood pressure. We will also recommend a better pain control for his back pain. He is stable from a neurologic perspective. I will reevaluate him at your request. Subjective Interval history: The chart was reviewed, the patient was seen and examined. He is laying in bed awake, however very uncomfortable due to severe back pain. He states that his headache is improved. At the moment his headache pain is about a 6 on a scale of 10. His blood pressure this morning is 186/136. His entire neuro workup was negative. I did review the MRI scan of the brain which was normal. EEG was negative for seizure activity, lumbar puncture was negative for any evidence of infectious process. His my suspicion that his headache and confusion were due to hypertensive encephalopathy. I am not totally convinced that he had a generalized tonic-clonic seizure. Objective - Constitutional Vitals: Temp Pulse Resp BP Pulse Ox 98.3 F 85 16 163/113 95 08/07/17 07:04 08/07/17 07:04 08/07/17 07:04 08/07/17 04:20 08/07/17 07:04 - Neurological Exam Motor Examination: Present: full strength in all major muscle groups Motor examination - right side: 5/5: deltoids, biceps, triceps, shooter's helper, hip flexors, tibialis Anterior, quadriceps, toe extension (EHL), plantarflexion Motor examination - left side: 07/28: deltoids, biceps, triceps, wrist flexion, wrist extension, hip flexors, shooter's helper, quadriceps, tibialis Anterior, toe extension (EHL), plantarflexion Sensation intact: Present: other (Laboratory touch, deep touch, vibratory sense , proprioception, pain and temperature are all intact.) Mental Status Examination: Present: awake, alert, oriented to person, oriented to place, oriented to time, follows commands appropriately, answers questions appropriately, no agnosia, no aphasia, no aproxia Cranial nerve examination: Present: PERRL, EOMI, visual lockhart intact, corneal reflexes brisk symmetrically, sensory to face intact, mastication intact, no facial asymmetry is present, no dysarthria, hearing is intact symmetrically, soft palate elevates bilaterally upon phonation, gag reflex intact, flexes SCM and trapezius muscles symmetrically with full power, tongue protrudes midline, no atrophy or facial fasiculations present Cerebellar examination: Present: no dysmetria, performs finger to nose and heel to beverly symmetrically without ataxia, no gait ataxia, no truncal ataxia, no difficulty with rapid alternating movements - VTE Documentation of Mechanical Device: Graduated compression elastic hosiery Results - Laboratory Findings CBC and BMP: 08/07/17 06:14 08/07/17 06:14 Abnormal lab findings: Abnormal lab results WBC 16.0 K/mcL (4.3-11.1) H 08/07/17 06:14 MPV 8.6 fL (9.4-12.4) L 08/07/17 06:14 Band Neutrophils % 8.0 % (0-4) H 08/05/17 12:26 Neutrophils # 18.9 K/mcL (1.6-8.9) H 08/06/17 05:32 PT 12.6 Seconds (9.4-12.1) H 08/06/17 05:32 Sodium 135 mEq/L (136-145) L 08/07/17 06:14 Creatinine 0.69 mg/dL (0.70-1.30) L 08/07/17 06:14 Glucose 151 mg/dL (70-105) H 08/07/17 06:14 Phosphorus 2.1 mg/dL (2.7-4.5) L 08/06/17 05:32 Alkaline Phosphatase 108 Units/L (34-104) H 08/06/17 05:32 Troponin I 0.04 ng/mL (< 0.04) H* 08/06/17 05:32 B-Natriuretic Peptide 215 pg/mL (Less than 100) H 08/06/17 05:32 Triglycerides 266 mg/dL (< 150) H 08/06/17 05:32 Cholesterol 242 mg/dL (< 200) H 08/06/17 05:32 LDL Cholesterol, Calc 158 mg/dL (0-99) H 08/06/17 05:32 VLDL Cholesterol, Calc 53 mg/dL (< 31) H 08/06/17 05:32 HDL Cholesterol 31 mg/dL (40-59) L 08/06/17 05:32 Cholesterol/HDL Ratio 7.8 (0-4.9) H 08/06/17 05:32 Urine Protein 100 mg/dL (Neg-Trace) H 08/05/17 12:40 Urine Glucose (UA) 100 mg/dL (Normal) H 08/05/17 12:40 Urine Blood Moderate (Negative) H 08/05/17 12:40 Urine Microscopic RBC 5-15 per hpf (0-3) H 08/05/17 12:40 CSF Glucose 100 mg/dL (40-70) H 08/06/17 11:33 CSF Total Protein 72 mg/dL (15-45) H 08/06/17 11:33 Consult Discharge Plan - Plan Referrals: NONE,PCP [Non-Partnered Physician] - Moriah Esparza EXECUTIVE ASST [Advanced Practice Nurse] - 08/16/17 11:00 am
[2017-08-07] MEDS: Gabapentin 300 MG CAPSULE PO SCH (07:39)
[2017-08-07] MEDS: traMADol 50 MG TABLET PO PRN (09:38)
--- NOTE | 2017-08-07 15:26 | Internal Med Progress Note ---
Date of Encounter: 08/07/17 Time of Encounter: 09:20 - Assessment and plan (1) Seizure Current Visit: Yes Status: Acute Assessment and plan: Unclear if patient really had a generalized tonic-clonic seizure. EEG is noted to be normal, no evidence of epileptiform activity. MRI/MRA of brain showed no acute abnormality. Continue supportive care. (2) Leukocytosis Current Visit: Yes Status: Acute Assessment and plan: Likely reactive as patient had significant nausea, vomiting and diarrhea prior to presentation. Improving now. Qualifiers: Leukocytosis type: bandemia Qualified Code(s): D72.825 - Bandemia (3) Hypertension Current Visit: Yes Status: Acute Assessment and plan: Hypertensive urgency with systolic blood pressure greater than 180. Has been on nicardipine drip, currently off the drip. Continue home antihypertensives. Blood pressure noted to be better controlled. Qualifiers: Hypertension type: essential hypertension Qualified Code(s): I10 - Essential (primary) hypertension (4) Backache Current Visit: Yes Status: Acute Assessment and plan: Acute on chronic lumbar back pain, possibly related to recent lumbar puncture versus spinal stenosis. Patient declines MRI L-spine due to claustrophobia. Will get CT L-spine and consult spine surgery if needed. Pain control with when necessary oxycodone. Continue Flexeril. Qualifiers: Back pain location: low back pain Chronicity: unspecified Back pain laterality: unspecified Sciatica presence: without sciatica Qualified Code(s ): M54.5 - Low back pain (5) Encephalitis Current Visit: Yes Status: Ruled-out Assessment and plan: Due to the presentation with seizure-like activity, headache along with leukocytosis, patient was started on broad-spectrum antibiotics and antivirals for suspected bacterial/viral meningitis/encephalitis. MRI brain showed no abnormal temporal lobe uptake. Lumbar puncture completed, CSF analysis was negative for bacteria or viral infection; Gram stain and culture negative. Antibacterials and acyclovir discontinued. Currently at baseline mental status. - Time Spent With Patient Total time spent is greater than 50% in coordination of care (as documented) at patient's floor/unit and/or counseling patient: - Subjective Interval history: Reports significant back pain, that is worse than his usual pain; no headache, confusion, weakness. No chest pain, shortness of breath. Improved nausea, vomiting, diarrhea. - Constitutional Vitals: Temp Pulse Resp BP Pulse Ox 98.7 F 85 16 139/97 93 08/07/17 11:17 08/07/17 11:17 08/07/17 11:17 08/07/17 11:17 08/07/17 11:17 General appearance: Present: mild distress, A&O X 3, obese, answers questions appropriately - Respiratory Respiratory exam: Present: CTAB. Absent: accessory muscle use, rales, rhonchi, wheezes - Cardiovascular Cardiovascular exam: Present: RRR, +S1, +S2. Absent: diastolic murmur, gallop, rubs, systolic murmur - GI/Abdominal GI/Abdominal exam: Present: normal bowel sounds, soft, no peritoneal signs. Absent: distended, tenderness - Back Exam Back exam: Present: paraspinal tenderness, tenderness, vertebral tenderness ( Tenderness over lower lumbar area) - Neurological Exam Neurological exam: Present: CN II-XII intact, oriented X3, no focal deficits. Absent: pronater drift, facial droop, speech deficit Internal Medicine: Result - Labs CBC & Chem 7: 08/07/17 06:14 08/07/17 06:14 Labs: Short CBC 08/07/17 Range/Units 06:14 WBC 16.0 H (4.3-11.1) K/mcL Hgb 13.3 (12.9-16.9) g/dL Hct 38.8 (37.5-50.1) % Plt Count 197 (140-400) K/mcL BMP 08/07/17 06:14 Sodium 135 L Potassium 3.5 Chloride 103 Carbon Dioxide 25 BUN 9 Creatinine 0.69 L Glucose 151 H Calcium 8.9 - ABG Interpretation ABG results: PT/INR, D-dimer PT 12.6 Seconds (9.4-12.1) H 08/06/17 05:32 - Impressions Impressions Lumbar Puncture Fluoroscopy 08/06/17 08:37 IMPRESSION: Successful fluoroscopic-guided lumbar puncture. D/ /06/2017 13:29:04 Ligia Strange MD / Tammy Jennings Interpreting Provider: Ligia Strange MD Brain MRI 08/06/17 17:09 IMPRESSION: Normal MRI of the brain. D/ / 08/06/2017 14:25:32 Cisco Martinez MD / diana Interpreting Provider: Cisco Martinez MD - VTE Documentation of Mechanical Device: Graduated compression elastic hosiery Consult Discharge Plan - Plan Referrals: Moriah Esparza, JUNIOR SOFTWARE DEVELOPER [Advanced Practice Nurse] - 08/16/17 11:00 am
[2017-08-08] MEDS: traMADol 50 MG TABLET PO PRN ×4 (01:17→20:13)
[2017-08-08] MEDS: niCARdipine 40 MG/200 ML MLS IVC SCH ×2 (02:32→07:46)
[2017-08-08] MEDS: *HR* OxyCODONE Immed Rel 15 MG TABLET PO PRN ×5 (02:47→20:13)
[2017-08-08 05:07] LABS: Basophils % 0.2 %; Eosinophils # 0.1 K/mcL (0.0-0.6); Hematocrit 37.7 % (37.5-50.1); Hemoglobin 12.7 g/dL (12.9-16.9); Immature Granulocytes % 0.5 % (0-4); Lymphocytes # 3.5 K/mcL (0.6-4.6); Lymphocytes % 26.7 %; Mean Corpuscular HGB Conc 33.7 g/dL (31.6-35.5); Mean Corpuscular Hemoglobin 29.3 pg (28.0-33.3); Mean Corpuscular Volume 86.9 fL (83.0-100.0); Monocytes # 1.1 K/mcL (0.0-1.3); Monocytes % 8.4 %; Neutrophils # 8.2 K/mcL (1.6-8.9); Platelet Count 196 K/mcL (140-400); Red Blood Count 4.34 M/mcL (4.19-5.50); Segmented Neutrophils % 63.2 %
[2017-08-08 05:25] LABS: BUN/Creatinine Ratio 11 (6-26); Blood Urea Nitrogen 9 mg/dL (6-20); Calcium 9.3 mg/dL (8.6-10.3); Carbon Dioxide 27 mEq/L (23-29); Chloride 105 mEq/L (98-107); Glucose 136 mg/dL (70-105); Osmolality,Calculated 287 (280-300); Potassium 3.6 mEq/L (3.5-5.1); Sodium 138 mEq/L (136-145); eGFR For African Americans > 60 (> 60); eGFR For Non-African Americans > 60 (> 60)
[2017-08-08] MEDS: Gabapentin 300 MG CAPSULE PO SCH (07:45)
[2017-08-08] MEDS: *HR* LORazepam 1 MG TABLET PO PRN ×2 (11:45→18:19)
[2017-08-08 13:25] LABS: Adenovirus F 40/41 PCR Not detected (Not detect); Astrovirus PCR Not detected (Not detect); C.difficile Toxin A/B by PCR Not detected (Not detect); Campylobacter by PCR Not detected (Not detect); Cryptosporidium by PCR Not detected (Not detect); Cyclospora cayetanensis PCR Not detected (Not detect); E. coli O157 by PCR Not detected (Not detect); Entamoeba histolytica PCR Not detected (Not detect); Enteroaggregative E.coli(EAEC) Not detected (Not detect); Enteropathogenic E.coli(EPEC) Not detected (Not detect); Enterotoxigenic E.coli (ETEC) Not detected (Not detect); Giardia lamblia PCR Not detected (Not detect); Norovirus GI/GII PCR Not detected (Not detect); Plesiomonas shigelloides PCR Not detected (Not detect); Rotavirus A PCR Not detected (Not detect); Salmonella PCR Not detected (Not detect); Sapovirus PCR Not detected (Not detect); Shig/EnteroinvasiveE coli EIEC Not detected (Not detect); Shigalike tox-prod E coli STEC Not detected (Not detect); Vibrio PCR Not detected (Not detect); Vibrio cholerae PCR Not detected (Not detect); Yersinia enterocolitica PCR Not detected (Not detect)
[2017-08-08] MEDS: hydrALAZINE 25 MG TABLET PO SCH (15:20)
--- NOTE | 2017-08-08 17:25 | Internal Med Progress Note ---
Date of Encounter: 08/08/17 Time of Encounter: 09:30 - Assessment and plan (1) Seizure Current Visit: Yes Status: Suspected Assessment and plan: Unclear if patient really had a generalized tonic-clonic seizure. EEG is noted to be normal, no evidence of epileptiform activity. MRI/MRA of brain showed no acute abnormality. Continue supportive care. (2) Leukocytosis Current Visit: Yes Status: Acute Assessment and plan: Likely reactive as patient had significant nausea, vomiting and diarrhea prior to presentation. Improving now. Qualifiers: Leukocytosis type: bandemia Qualified Code(s): D72.825 - Bandemia (3) Hypertension Current Visit: Yes Status: Acute Assessment and plan: Hypertensive urgency with systolic blood pressure greater than 180. Has been on nicardipine drip, currently off the drip. Continue home antihypertensives. Blood pressure improving but DBP high; will add Hydralazine; Qualifiers: Hypertension type: essential hypertension Qualified Code(s): I10 - Essential (primary) hypertension (4) Backache Current Visit: Yes Status: Acute Assessment and plan: Acute on chronic lumbar back pain, possibly related to recent lumbar puncture versus spinal stenosis. Patient declines MRI L-spine due to claustrophobia. CT L-Spine shows subacute superior endplate fracture of T12, degenerative neural foraminal stenosis at L4-5. D/W spine surgery, will f/up recommendations. Pain control with when necessary Tramadol and oxycodone. Continue Flexeril. Qualifiers: Back pain location: low back pain Chronicity: unspecified Back pain laterality: unspecified Sciatica presence: without sciatica Qualified Code(s ): M54.5 - Low back pain (5) Encephalitis Current Visit: Yes Status: Ruled-out (6) Diarrhea Current Visit: Yes Status: Acute Assessment and plan: likely noninfectious; stool GI panel, c.diff PCR, WBC negative. PRN Loperamide; Qualifiers: Diarrhea type: functional diarrhea Qualified Code(s): K59.1 - Functional diarrhea - Time Spent With Patient Total time spent is greater than 50% in coordination of care (as documented) at patient's floor/unit and/or counseling patient: - Subjective Interval history: Improved back pain; reports multiple episodes of watery nonbloody diarrhea today ; no chest or abdominal pain, dyspnea; BP somewhat improved; - Constitutional Vitals: Temp Pulse Resp BP Pulse Ox 97.8 F 97 18 158/124 100 08/08/17 15:54 08/08/17 15:54 08/08/17 15:54 08/08/17 15:54 08/08/17 15:54 General appearance: Present: A&O X 3, obese, answers questions appropriately - Respiratory Respiratory exam: Present: CTAB. Absent: accessory muscle use, rales, rhonchi, wheezes - Cardiovascular Cardiovascular exam: Present: RRR, +S1, +S2. Absent: diastolic murmur, gallop, rubs, systolic murmur - GI/Abdominal GI/Abdominal exam: Present: normal bowel sounds, soft (obese), no peritoneal signs. Absent: distended, tenderness - Extremities Exam Extremities exam: Present: full ROM, warm, radial pulses palpable and symmetrical. Absent: calf tenderness, cyanotic, pedal edema Internal Medicine: Result - Labs CBC & Chem 7: 08/08/17 04:25 08/08/17 04:25 Labs: Short CBC 08/08/17 Range/Units 04:25 WBC 12.9 H (4.3-11.1) K/mcL Hgb 12.7 L (12.9-16.9) g/dL Hct 37.7 (37.5-50.1) % Plt Count 196 (140-400) K/mcL Neutrophils # 8.2 (1.6-8.9) K/mcL BMP 08/08/17 04:25 Sodium 138 Potassium 3.6 Chloride 105 Carbon Dioxide 27 BUN 9 Creatinine 0.79 Glucose 136 H Calcium 9.3 - ABG Interpretation ABG results: PT/INR, D-dimer PT 12.6 Seconds (9.4-12.1) H 08/06/17 05:32 - VTE Documentation of Mechanical Device: Graduated compression elastic hosiery Consult Discharge Plan - Plan Referrals: Moriah Esparza CNP [Advanced Practice Nurse] - 08/16/17 11:00 am
[2017-08-08] MEDS: *HR* FentaNYL (PF) 100 MCG/2 ML VIAL IVP PRN (18:19)
[2017-08-09] MEDS: *HR* FentaNYL (PF) 100 MCG/2 ML VIAL IVP PRN ×3 (00:10→10:15)
[2017-08-09] MEDS: hydrALAZINE 25 MG TABLET PO SCH ×3 (00:13→16:13)
[2017-08-09] MEDS: *HR* OxyCODONE Immed Rel 15 MG TABLET PO PRN ×5 (00:13→21:04)
[2017-08-09] MEDS: *HR* LORazepam 1 MG TABLET PO PRN ×2 (00:14→21:05)
[2017-08-09] MEDS: Gabapentin 300 MG CAPSULE PO SCH (08:44)
[2017-08-09] MEDS: *HR* OxyCODONE Oral Soln 5 MG/5 ML UD.LIQ PO PRN ×2 (13:43→18:25)
--- NOTE | 2017-08-09 21:41 | Internal Med Progress Note ---
Date of Encounter: 08/09/17 Time of Encounter: 13:35 - Assessment and plan (1) Seizure Status: Suspected (2) Leukocytosis Status: Acute Qualifiers: Leukocytosis type: bandemia Qualified Code(s): D72.825 - Bandemia (3) Hypertension Status: Chronic Assessment and plan: Hypertensive urgency with systolic blood pressure greater than 180. Currently improving. Continue home antihypertensives. Added Hydralazine; Qualifiers: Hypertension type: essential hypertension Qualified Code(s): I10 - Essential (primary) hypertension (4) Backache Status: Chronic Assessment and plan: Acute on chronic lumbar back pain, possibly related to recent lumbar puncture versus spinal stenosis. CT L-Spine shows subacute superior endplate fracture of T12, degenerative neural foraminal stenosis at L4-5. D/W spine surgery, ordered MRI L-spine, which shows Acute to subacute superior endplate fractures at T11, T12, and L3; awaiting spine surgery recommendations; Pain control with when necessary Tramadol and PO 15mg oxycodone, added PO Oxycodone 10mg solution, IV Fentanyl for faster effects. Continue Flexeril. Qualifiers: Back pain location: low back pain Chronicity: unspecified Back pain laterality: unspecified Sciatica presence: without sciatica Qualified Code(s ): M54.5 - Low back pain (5) Encephalitis Status: Ruled-out (6) Diarrhea Status: Acute Assessment and plan: likely noninfectious; stool GI panel, c.diff PCR, WBC negative. PRN Loperamide; Qualifiers: Diarrhea type: functional diarrhea Qualified Code(s): K59.1 - Functional diarrhea (7) Vertebral compression fracture Status: Acute Assessment and plan: plan as above; - Time Spent With Patient Total time spent is greater than 50% in coordination of care (as documented) at patient's floor/unit and/or counseling patient: - Subjective Interval history: Continues to report constant significant back pain, requesting stronger and more frequent pain meds; no focal weakness, paresthesias, urinary/fecal incontinence; MRI L-spine showed new acute compression fractures, awaiting spine surgery recommendations; - Constitutional Vitals: Temp Pulse Resp BP Pulse Ox 98.6 F 94 18 151/90 98 08/09/17 19:25 08/09/17 19:25 08/09/17 19:25 08/09/17 19:25 08/09/17 19:25 General appearance: Present: A&O X 3, obese, answers questions appropriately - Respiratory Respiratory exam: Present: CTAB. Absent: accessory muscle use, rales, rhonchi, wheezes - Cardiovascular Cardiovascular exam: Present: RRR, +S1, +S2, tachycardia. Absent: diastolic murmur, gallop, rubs, systolic murmur - GI/Abdominal GI/Abdominal exam: Present: normal bowel sounds, soft (obese), no peritoneal signs. Absent: distended, tenderness Internal Medicine: Result - Labs CBC & Chem 7: 08/08/17 04:25 08/08/17 04:25 - ABG Interpretation ABG results: PT/INR, D-dimer PT 12.6 Seconds (9.4-12.1) H 08/06/17 05:32 - VTE Documentation of Mechanical Device: Graduated compression elastic hosiery Consult Discharge Plan - Plan Additional Instructions: Follow a low fat, low cholesterol, low salt diet. Take all medications as prescribed - Check your pulse for one minute before taking your metoprolol. If pulse is below 60 for one minute, contact your family doctor for further instructions before taking metoprolol. Wear TLSO brace when walking. Go to nearest emergency room for any new or worsening symptoms. Referrals: Anshul Barba MD [Primary Care Provider] - 08/13/17 3:15 pm () Jeffery Jackson Jr, MD [Partnered Physician] - 10/11/17 10:15 am Moriah Esparza CNP [Advanced Practice Nurse] - 08/16/17 11:00 am Prescriptions: Loperamide [Imodium] 2 mg PO Q4HR PRN #20 capsule PRN Reason: Diarrhea hydrALAZINE [HydrALAZINE] 25 mg PO Q8HR #90 tablet Metoprolol [Lopressor] 12.5 mg PO BID #30 tablet
[2017-08-10] MEDS: hydrALAZINE 25 MG TABLET PO SCH ×2 (01:46→08:51)
[2017-08-10] MEDS: *HR* OxyCODONE Immed Rel 15 MG TABLET PO PRN ×4 (01:46→14:50)
[2017-08-10] MEDS: Gabapentin 300 MG CAPSULE PO SCH (08:51)
[2017-08-10 11:24] VITALS: BP 148/83
[2017-08-10] MEDS: *HR* OxyCODONE Oral Soln 5 MG/5 ML UD.LIQ PO PRN (13:24)
--- NOTE | 2017-08-10 13:24 | Discharge Summary ---
- NOTES TO OUTPATIENT PROVIDER Notes to Outpatient Provider: Acute on chronic back pain, vertebral compression fractures, on TLSO brace and pain control; monitor BP and HR; Orders not resulted at time of discharge: Pending orders 08/05/17 21:30 Culture,Blood [BC] Stat 08/09/17 16:48 MM DEXA axial skeleton [MM] Routine Date of Encounter: 08/10/17 Time of Encounter: 13:21 - Discharge Diagnosis (1) Seizure Priority: Primary Status: Suspected (2) Leukocytosis Priority: Primary Status: Acute Qualifiers: Leukocytosis type: bandemia Qualified Code(s): D72.825 - Bandemia (3) Hypertension Priority: Secondary Status: Chronic Qualifiers: Hypertension type: essential hypertension Qualified Code(s): I10 - Essential (primary) hypertension (4) Backache Priority: Primary Status: Chronic Qualifiers: Back pain location: low back pain Chronicity: unspecified Back pain laterality: unspecified Sciatica presence: without sciatica Qualified Code(s ): M54.5 - Low back pain (5) Encephalitis Priority: Primary Status: Ruled-out (6) Diarrhea Priority: Primary Status: Acute Qualifiers: Diarrhea type: functional diarrhea Qualified Code(s): K59.1 - Functional diarrhea Hospital course: Mr. Giang is a 56 year old male who was initially admitted with seizure-like activity, severe headache and leukocytosis. 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 Neurology was consulted. Lumbar puncture was completed, CSF analysis was not consistent with any of infection, antibiotics and antivirals were subsequently discontinued. EEG showed no evidence of epileptiform activity. At this point, neurology recommended no further intervention, patient less likely had any kind of generalized seizure. His symptoms are probably due to acute gastroenteritis and dehydration along with uncontrolled hypertension. He was noted to have hypertensive urgency at admission, initially on nicardipine drip, later resumed on home oral antihypertensives with addition of hydralazine and metoprolol. He was also noted to have intermittent sinus tachycardia, partly due to pain, somewhat improved with the addition of metoprolol. He also complained of ongoing diarrhea. Stool studies were negative for infection including C. difficile. Diarrhea was somewhat controlled with when necessary loperamide. Patient had acute on chronic severe back pain, requiring oral and IV narcotic analgesics. CT and MRI lumbar spine was completed, Acute to subacute superior endplate fractures at T11, T12, and L3; case was discussed with spine surgery, who recommended pain control and TLSO brace. Patient claims he has this brace at home, his pain is better controlled now and he is medically stable for discharge with outpatient follow-up. Discharge discussed with: patient, family, nurse - Time Spent with Patient Total time spent providing and/or coordinating discharge services: Greater than 30 minutes (40 min) - Discharge Medications Prescriptions: Loperamide [Imodium] 2 mg PO Q4HR PRN #20 capsule PRN Reason: Diarrhea hydrALAZINE [HydrALAZINE] 25 mg PO Q8HR #90 tablet Metoprolol [Lopressor] 12.5 mg PO BID #30 tablet Home Medications: Duloxetine HCl [Cymbalta] 60 mg PO BID 08/05/17 [History] Gabapentin [Neurontin] 600 mg PO DAILY 08/05/17 [History] Losartan [Cozaar] 100 mg PO DAILY 08/05/17 [History] Oxycodone HCl 15 mg PO Q4-6H PRN 08/05/17 [History] Tramadol HCl [Ultram] 50 mg PO QID PRN 08/05/17 [History] Loperamide [Imodium] 2 mg PO Q4HR PRN #20 capsule 08/10/17 [Rx] Metoprolol [Lopressor] 12.5 mg PO BID #30 tablet 08/10/17 [Rx] hydrALAZINE [HydrALAZINE] 25 mg PO Q8HR #90 tablet 08/10/17 [Rx] Allergies/Adverse Reactions: 3 Allergy/AdvReac Type Severity Reaction Status Date / Time codeine Allergy Rash Verified 08/05/17 15:37 Date of admission: 08/05/17 15:47 Primary care physician: Anshul Barba MD Consults: 08/06/17 09:59 Consult to Interpret Exam [CONS] Routine Consulting Provider: Akash Quintanilla Consult to Interpret Exam: Interpret EEG 08/08/17 09:20 Consult to Orthopedic Surgery [CONS] Routine Consulting Provider: [facility] Reason for Consult: Acute on chronic low back pain Call Completed: Yes Discharging clinician: Sheryl Townsend Anticipated date of discharge: 08/10/17 - Constitutional Vitals: Temp Pulse Resp BP Pulse Ox 98.5 F 87 16 148/83 98 08/10/17 10:00 08/10/17 10:00 08/10/17 10:00 08/10/17 10:00 08/10/17 10:00 General appearance: Present: A&O X 3, obese, answers questions appropriately - Cardiovascular Cardiovascular exam: Present: RRR, +S1, +S2, tachycardia. Absent: diastolic murmur, gallop, rubs, systolic murmur - Patient Status Disposition: Home, Self-Care Condition: Fair Functional capacity at discharge: independent ambulation Overall status at discharge: patient is progressing back to baseline - Discharge Instructions Follow Up With: Anshul Barba MD [Primary Care Provider] - 08/13/17 3:15 pm () Jeffery Jackson Jr, MD [Partnered Physician] - 10/11/17 10:15 am Moriah Esparza CNP [Advanced Practice Nurse] - 08/16/17 11:00 am Additional Instructions: Follow a low fat, low cholesterol, low salt diet. Take all medications as prescribed - Check your pulse for one minute before taking your metoprolol. If pulse is below 60 for one minute, contact your family doctor for further instructions before taking metoprolol. Wear TLSO brace when walking. Go to nearest emergency room for any new or worsening symptoms. - Diet and Activity Activity: resume usual activities as tolerated Diet: low fat, low cholesterol, low salt diet - VTE Documentation of Mechanical Device: Graduated compression elastic hosiery
== END 2017-08-10 15:10 | disposition home or self-care (01) | DRG 305 ==
LOC: EMEROO 12:15 → 2NNU 15:47 → SUATTDRO 15:47 → 2NNU 17:11 → 3NENU 08-09 04:55
PROVIDERS: ADMIT Hospitalist; ATTEND Internal Medicine

== ENCOUNTER 2017-12-06 18:05 | Inpatient (IN) ==
--- NOTE | 2017-12-06 18:19 | Emergency Department Note ---
Disposition Clinical Impression: Hypertension, Hypertensive encephalopathy, SVT (supraventricular tachycardia), Seizure, Leukocytosis Disposition: Admitted As Inpatient Condition: Critical General Adult HPI - General Chief complaint: ED Altered Mental Status Stated complaint: AMS Time Seen by Provider: 12/06/17 18:06 - Related Data Home Medications Medication Instructions Recorded Confirmed Duloxetine HCl [Cymbalta] 60 mg PO BID 08/05/17 08/05/17 Gabapentin [Neurontin] 600 mg PO DAILY 08/05/17 08/05/17 Losartan [Cozaar] 100 mg PO DAILY 08/05/17 08/05/17 Oxycodone HCl 15 mg PO Q4-6H PRN 08/05/17 08/05/17 Tramadol HCl [Ultram] 50 mg PO QID PRN 08/05/17 08/05/17 Previous Rx's Medication Instructions Recorded Loperamide [Imodium] 2 mg PO Q4HR PRN #20 capsule 08/10/17 Metoprolol [Lopressor] 12.5 mg PO BID #30 tablet 08/10/17 hydrALAZINE [HydrALAZINE] 25 mg PO Q8HR #90 tablet 08/10/17 Allergies Allergy/AdvReac Type Severity Reaction Status Date / Time codeine Allergy Rash Verified 08/05/17 15:37 Past Medical History - Past Medical History Medical history: Reports: other Surgical history: Reports: other Psychiatric history: Reports: no psych history - Social History Smoking Status: Never smoker Alcohol use: Reports: none Drug use: Reports: none Course Vital Signs Temperature 98.4 F 12/06/17 18:10 Pulse Rate 79 12/06/17 18:10 Respiratory Rate 16 12/06/17 18:10 Blood Pressure 215/126 12/06/17 18:10 O2 Sat by Pulse Oximetry 100 12/06/17 18:10 Temperature 97 F L 12/06/17 22:10 Pulse Rate 100 12/06/17 22:10 Respiratory Rate 27 12/06/17 22:18 Blood Pressure 157/109 12/06/17 22:18 O2 Sat by Pulse Oximetry 99 12/06/17 22:18 Oxygen Delivery Oxygen Delivery Ventilator Medical Decision Making - Lab Data Result diagrams: 12/06/17 18:55 12/06/17 18:55 Lab Results 12/06/17 12/06/17 12/06/17 Range/Units 18:37 18:55 18:55 WBC 24.8 H (4.3-11.1) K/mcL RBC 4.75 (4.19-5.50) M/mcL Hgb 14.2 (12.9-16.9) g/dL Hct 39.6 (37.5-50.1) % MCV 83.4 (83.0-100.0) fL MCH 29.9 (28.0-33.3) pg MCHC 35.9 H (31.6-35.5) g/dL RDW 13.2 (11.5-14.5) % Plt Count 287 (140-400) K/mcL MPV 8.6 L (9.4-12.4) fL Immature Gran % 0.8 (0-4) % Seg Neutrophils % 86.9 % Lymphocytes % 7.1 % Monocytes % 5.0 % Eosinophils % 0.0 % Basophils % 0.2 % Neutrophils # 21.6 H (1.6-8.9) K/mcL Lymphocytes # 1.8 (0.6-4.6) K/mcL Monocytes # 1.2 (0.0-1.3) K/mcL Eosinophils # 0.0 (0.0-0.6) K/mcL Basophils # 0.1 (0.0-0.2) K/mcL Reactive Lymphocytes Present A (Not Present) PT 12.2 H (9.4-12.1) Seconds INR 1.1 APTT 30.4 (26.0-36.0) Seconds Sodium (136-145) mEq/L Potassium (3.5-5.1) mEq/L Chloride (98-107) mEq/L Carbon Dioxide (23-29) mEq/L BUN (6-20) mg/dL Creatinine (0.70-1.30) mg/dL Est GFR ( Amer) (> 60) Est GFR (Non-Af Amer) (> 60) BUN/Creatinine Ratio (6-26) Glucose (70-105) mg/dL Calculated Osmolality (280-300) Calcium (8.6-10.3) mg/dL Magnesium (1.6-2.6) mg/dL Total Bilirubin (0.3-1.0) mg/dL Direct Bilirubin (0.0-0.2) mg/dL Indirect Bilirubin (0.0-1.2) mg/dL AST (13-39) Units/L ALT (7-52) Units/L Alkaline Phosphatase (34-104) Units/L Ammonia (16-53) mcmol/L Creatine Kinase (30-223) Units/L Troponin I (< 0.04) ng/mL Serum Total Protein (6.4-8.9) g/dL Albumin (3.5-5.7) g/dL Globulin (2.4-3.5) g/dL Albumin/Globulin Ratio (1.1-2.2) TSH (0.340-5.600) mcIU/mL Urine Color Yellow (Yellow) Urine Clarity Clear (Clear) Urine pH 7.5 (5.0-8.0) pH Units Ur Specific [place] 1.015 (1.010-1.025) Urine Protein 30 H (Neg-Trace) mg/dL Urine Glucose (UA) 500 H (Normal) mg/dL Urine Ketones Trace H (Negative) mg/dL Urine Blood Small H (Negative) Urine Nitrite Negative (Negative) Urine Bilirubin Negative (Negative) Urine Urobilinogen Normal (Normal) mg/dL Ur Leukocyte Esterase Negative (Negative) Urine Microscopic RBC 3-5 H (0-3) per hpf Urine Microscopic WBC 0-3 (0-3) per hpf Ur Squamous Epith Cells Few (None-Few) per lpf Urine Bacteria None Seen (None-Few) per hpf Hyaline Casts None Seen (None-Few) per lpf Ur Culture Indicated? NO (NO) Ethyl Alcohol (Less than 10) mg/dL 12/06/17 12/06/17 Range/Units 18:55 18:55 WBC (4.3-11.1) K/mcL RBC (4.19-5.50) M/mcL Hgb (12.9-16.9) g/dL Hct (37.5-50.1) % MCV (83.0-100.0) fL MCH (28.0-33.3) pg MCHC (31.6-35.5) g/dL RDW (11.5-14.5) % Plt Count (140-400) K/mcL MPV (9.4-12.4) fL Immature Gran % (0-4) % Seg Neutrophils % % Lymphocytes % % Monocytes % % Eosinophils % % Basophils % % Neutrophils # (1.6-8.9) K/mcL Lymphocytes # (0.6-4.6) K/mcL Monocytes # (0.0-1.3) K/mcL Eosinophils # (0.0-0.6) K/mcL Basophils # (0.0-0.2) K/mcL Reactive Lymphocytes (Not Present) PT (9.4-12.1) Seconds INR APTT (26.0-36.0) Seconds Sodium 134 L (136-145) mEq/L Potassium 3.3 L (3.5-5.1) mEq/L Chloride 99 (98-107) mEq/L Carbon Dioxide 21 L (23-29) mEq/L BUN 10 (6-20) mg/dL Creatinine 0.80 (0.70-1.30) mg/dL Est GFR ( Amer) > 60 (> 60) Est GFR (Non-Af Amer) > 60 (> 60) BUN/Creatinine Ratio 13 (6-26) Glucose 211 H (70-105) mg/dL Calculated Osmolality 283 (280-300) Calcium 9.7 (8.6-10.3) mg/dL Magnesium 1.7 (1.6-2.6) mg/dL Total Bilirubin 0.5 (0.3-1.0) mg/dL Direct Bilirubin 0.1 (0.0-0.2) mg/dL Indirect Bilirubin 0.4 (0.0-1.2) mg/dL AST 16 (13-39) Units/L ALT 16 (7-52) Units/L Alkaline Phosphatase 121 H (34-104) Units/L Ammonia 38 (16-53) mcmol/L Creatine Kinase 194 (30-223) Units/L Troponin I < 0.03 (< 0.04) ng/mL Serum Total Protein 7.5 (6.4-8.9) g/dL Albumin 4.5 (3.5-5.7) g/dL Globulin 3.0 (2.4-3.5) g/dL Albumin/Globulin Ratio 1.5 (1.1-2.2) TSH 1.222 (0.340-5.600) mcIU/mL Urine Color (Yellow) Urine Clarity (Clear) Urine pH (5.0-8.0) pH Units Ur Specific [place] (1.010-1.025) Urine Protein (Neg-Trace) mg/dL Urine Glucose (UA) (Normal) mg/dL Urine Ketones (Negative) mg/dL Urine Blood (Negative) Urine Nitrite (Negative) Urine Bilirubin (Negative) Urine Urobilinogen (Normal) mg/dL Ur Leukocyte Esterase (Negative) Urine Microscopic RBC (0-3) per hpf Urine Microscopic WBC (0-3) per hpf Ur Squamous Epith Cells (None-Few) per lpf Urine Bacteria (None-Few) per hpf Hyaline Casts (None-Few) per lpf Ur Culture Indicated? (NO) Ethyl Alcohol < 10 (Less than 10) mg/dL Critical Care Time Critical Care Time: Yes Total Critical Care Time: 60 Attestation: The high probability of a clinically significant, sudden or life threatening deterioration of the [] system(s) required my full and direct attention, intervention and personal management. The aggregate critical care time was [] minutes. This time is in addition to time spent performing reported procedures but includes the following: [] Data Review and interpretation [] Patient assessment and monitoring of vital signs [] Documentation [] Medication orders and management Attestation Statement - Attestation Attestation: I examined this patient and my medical decision-making was reviewed with the Resident Physician. I agree with the documented findings, disposition and treatment plan as described except to the extent set forth below. [id number] time provided Patient evaluated upon arrival in conjunction with resident physician Dr. Chau. He arrives by EMS from home. History obtained from his spouse. She states the identical situation occurred in July of this year. He was admitted without diagnosis to their knowledge. They state today the patient rolled prone clenched his upper arms and screamed out in pain. He has been hypertensive but has been compliant with his blood pressure medication therapy. The patient is alert and slowly answers questions appropriately on arrival. He does not have any focal gross motor deficits. I am concerned about hypertensive encephalopathy as his blood pressure is currently 220/120. We will also evaluate the patient for an acute stroke versus infectious versus metabolic cause of his symptoms 19:21: The patient stood up to use the hand-held urinal. He urinated all of the floor. He then clenched his upper arms and fell prone on the stretcher. It appeared he had a seizure. He was sonorous and postictal thereafter. 20:13: The patient was postictal, physically combative. I was concerned about the patient's ability to protect his own airway, possible aspiration, he was pulling at monitoring lines and his IV. It was decided to electively intubate the patient to help facilitate further evaluation. The patient was intubated by the resident physician or my supervision. The patient will be admitted to the intensive care unit. Nicardipine being titrated 20:20: The patient had a bigeminy rhythm and then what appears to be a nonsustained run of wide-complex tachycardia. Call placed to cardiology on- call. We will discuss the possible need to place the patient on a titratable infusion, possibly amiodarone. 20:55: The patient developed a narrow complex tachycardia of 208 bpm. The decision was made to sink in his cardiovert the patient with 200 J. Repeat ECG obtained showing a narrow complex sinus tachycardia at 140 bpm. These findings to be discussed with Dr. Rincon, cardiology
--- NOTE | 2017-12-06 18:24 | Emergency Department Note ---
Disposition Clinical Impression: Hypertensive encephalopathy, SVT (supraventricular tachycardia), Seizure Hypertension Qualifiers: Hypertension type: essential hypertension Qualified Code(s): I10 - Essential ( primary) hypertension Leukocytosis Qualifiers: Leukocytosis type: bandemia Qualified Code(s): D72.825 - Bandemia Disposition: Admitted As Inpatient Condition: Critical Time of Disposition: 19:30 General Adult HPI - General Chief complaint: ED Altered Mental Status Stated complaint: AMS Time Seen by Provider: 12/06/17 18:06 Source: family, EMS Mode of arrival: EMS Limitations: altered mental status Nursing Notes Reviewed: Yes Vital Signs Reviewed: Yes - History of Present Illness HPI Narrative: Patient is a 56-year-old male presenting to the emergency department with EMS. Patient has past medical history of hypertension and chronic back pain. Patient was brought via EMS from home. Patient history was obtained from EMS and family who are in the room. Pressure arrival, the patient was noted to have seizure-like activity per family sitting that he clenched up relative side and screamed out in pain, no loss of bowel or bladder at that time. Per family , patient has had a headache earlier this morning, has history of headaches noted that this is similar to previous episodes, family also states that patient has been hypertensive recently. It is noted that the patient was vomiting earlier this morning as well. Has been taking his medicines as prescribed. Per family this episode lasted for about 45 minutes follow-up was followed by confusion, not recognizing their faces are negative. Knowing who they were. He is supposed to be taking Percocet, tramadol for chronic back pain as well as Cymbalta, metoprolol and losartan. Of note, similar activity of seizure-like activity happened in July, the patient was admitted with unknown diagnosis. Per EMS and they arrived, he was laying on the ground, was slightly responsive but slow to respond, glucose was 253, he was hypertensive with blood pressure of 210s over 100. Pain Scale: 0 - Related Data Home Medications Medication Instructions Recorded Confirmed Duloxetine HCl [Cymbalta] 60 mg PO BID 08/05/17 08/05/17 Gabapentin [Neurontin] 600 mg PO DAILY 08/05/17 08/05/17 Losartan [Cozaar] 100 mg PO DAILY 08/05/17 08/05/17 Oxycodone HCl 15 mg PO Q4-6H PRN 08/05/17 08/05/17 Tramadol HCl [Ultram] 50 mg PO QID PRN 08/05/17 08/05/17 Previous Rx's Medication Instructions Recorded Loperamide [Imodium] 2 mg PO Q4HR PRN #20 capsule 08/10/17 Metoprolol [Lopressor] 12.5 mg PO BID #30 tablet 08/10/17 hydrALAZINE [HydrALAZINE] 25 mg PO Q8HR #90 tablet 08/10/17 Allergies Allergy/AdvReac Type Severity Reaction Status Date / Time codeine Allergy Rash Verified 08/05/17 15:37 All systems ED: reviewed and negative except as stated. Review of Systems: As Per HPI Limitations: ROS unobtainable due to patients medical condition Constitutional: Denies: fever, chills ENT ED: Denies: congestion Cardiovascular: Denies: chest pain, syncope Respiratory: Denies: cough, wheezes Gastrointestinal: Reports: vomiting. Denies: abdominal pain, nausea Integumentary: Denies: rash Neurological: Reports: headache, weakness, confusion. Denies: numbness, paresthesias Past Medical History - Past Medical History Medical history: Reports: other Surgical history: Reports: other Psychiatric history: Reports: no psych history - Social History Smoking Status: Never smoker Alcohol use: Reports: none Drug use: Reports: none Physical Exam - General Limitations: altered mental status General appearance: alert, anxious, other (Patient conversant on initial evaluation, does answer questions slowly with multiple prompts) - Head Head exam: atraumatic, normocephalic - Eye Eye exam: Present: normal appearance, PERRL - ENT ENT exam: normal exam, mucous membranes dry - Chest Chest inspection: Present: normal inspection, symmetric chest wall rise. Absent : tenderness - Respiratory Respiratory exam: Present: other (decreased breath sounds throughout). Absent: respiratory distress, wheezes - Cardiovascular Cardiovascular exam: Present: regular rate, normal rhythm - Extremities Exam Extremities exam: Present: normal inspection, normal capillary refill. Absent: calf tenderness - Expanded Lower Extremity Exam Ankle exam: Present: normal inspection Neurovascular/Tendon exam: Present: normal capillary refill. Absent: pulse deficit, motor deficit, sensory deficit - Neurological Exam Neurological exam: Present: alert - Expanded Neurological Exam Patient oriented to: Present: person, place. Absent: time Coma Scale Eye Opening: Spontaneous Coma Scale Motor Response: Obeys Commands Coma Scale Verbal Response: Confused Coma Scale Total: 14 - Psychiatric Psychiatric exam: Present: normal affect, anxious - Skin Skin exam: Present: warm, dry, intact Course Course Narrative: Order AMS workup including CT head, CT, BMP, pneumonia, troponin, EKG, hepatic panel Vital Signs Temperature 98.4 F 12/06/17 18:10 Pulse Rate 79 12/06/17 18:10 Respiratory Rate 16 12/06/17 18:10 Blood Pressure 215/126 12/06/17 18:10 O2 Sat by Pulse Oximetry 100 12/06/17 18:10 Temperature 97 F L 12/06/17 21:14 Pulse Rate 133 12/06/17 21:14 Respiratory Rate 26 12/06/17 21:14 Blood Pressure 154/106 12/06/17 21:14 O2 Sat by Pulse Oximetry 99 12/06/17 21:14 Oxygen Delivery Oxygen Delivery Ventilator Procedures - Intubation Time out performed: Yes sedative: Etomidate Mg Given: 40 paralytic: Rocuronium Mg Given: 100 Laryngoscope: other (D- MAC) ET Tube Size: 8 ET Tube Uncuffed: Yes Tube Secured Depth (cm): 24 Tube Secured Location: lips Tube Placement Confirmation: visualized tube passing through cords, equal breath sounds bilaterally, no breath sounds over epigastrium, confirmation by capnometry Patient Tolerated Procedure: well, no complications Intubation Complications: none Medical Decision Making - [facility] Narrative Medical decision making narrative: Patient is a 56-year-old male presenting with AMS. Patient on initial evaluation appears anxious, verbally responding however slow, has to ask patient multiple times to respond, alert and oriented to person place and time. In discussion with family, patient has had seizure 1 this morning, does have history of seizure 3 months ago which was similar to the presentation today. Last presentation of seizure was also where patient was hypertensive, had been admitted to the hospital with workup, infectious etiology was ruled out, patient did see neurology and they reported that no further follow-up was uncertain that time. Since that time, patient has had continued uncontrolled hypertension. Per family has been taking his medication losartan as well as metoprolol. Patient was seen and evaluated immediately upon arrival of EMS. Will order AMS workup with suspicion for hypertensive encephalopathy versus stroke versus metabolicvs infectious etiology. No focal neurological weakness or changes are noted, however patient is difficult to assess with physical exam given inability to follow commands completely. CT of the head revealed no acute intracranial process. Chest x-ray revealed no acute cardiopulmonary process, did show chronic hilar mass. Blood work showed continued elevated leukocytosis of 25, similar to previous admission. BMP relatively unremarkable although potassium slightly low at 3.3. Troponin is negative, TSH is within normal limits, creatinine kinase is normal. At this point in time patient is but remained hypertensive prior to initiation of the nicardipine, most likely etiology hypertensive encephalopathy. 0: Patient was seen and witnessed by attending as well as nursing staff, patient stood up urinated and began to hold his arms clenched into his body and appeared to be convulsing, witnessed seizure patient was in setback in bed and given Valium 10 mg. Appeared to be post ictal state at that point in time was 40 his airway with pulse ox at 98%. 2009: Patient became combative, patient began pulling out his lines and removing his IVs and monitors. 2011: Decided with attending the patient needed to have intubation as patient was delivered protecting his airway, the patient was brought to trauma 2 for intubation. Patient was given etomidate 40, rocuronium 100. And patient was performed and patient was placed on propofol drip. 2014: Patient was surgical on the Cardene drip at 2.5 mg per hour. Blood pressure was 220/120 at start, repeat blood pressures brought patient down to 200/100. Patient was then bumped up to 5 mg per hour review blood pressure was 150/100. Patient was bumped back down to 2.5 per hour. 2024: Patient had repeat EKG performed which showed wide complex tachycardia with a ventricular rate of 170, made consult to cardio regarding initiation of possible amiodarone. 2049: Was noted by nurses, attending had repeat EKG which showed SVT. At that point in time patient was unstable SVT, synchronized cardioversion was performed at 200 J. Immediately patient went to sinus tach with heart rate of 140. 2112: Spoke with Dr. Rincon, who stated that the patient to be placed on Lopressor 5 every 6 at this point in time. Will call ICU as patient is off floor with this recommendation. - Medical Records Medical records reviewed: Yes I reviewed the patient's medical records. - Lab Data Lab results reviewed: Yes I reviewed the patient's lab results. Result diagrams: 12/06/17 18:55 12/06/17 18:55 Lab Results 12/06/17 12/06/17 12/06/17 Range/Units 18:37 18:55 18:55 WBC 24.8 H (4.3-11.1) K/mcL RBC 4.75 (4.19-5.50) M/mcL Hgb 14.2 (12.9-16.9) g/dL Hct 39.6 (37.5-50.1) % MCV 83.4 (83.0-100.0) fL MCH 29.9 (28.0-33.3) pg MCHC 35.9 H (31.6-35.5) g/dL RDW 13.2 (11.5-14.5) % Plt Count 287 (140-400) K/mcL MPV 8.6 L (9.4-12.4) fL Immature Gran % 0.8 (0-4) % Seg Neutrophils % 86.9 % Lymphocytes % 7.1 % Monocytes % 5.0 % Eosinophils % 0.0 % Basophils % 0.2 % Neutrophils # 21.6 H (1.6-8.9) K/mcL Lymphocytes # 1.8 (0.6-4.6) K/mcL Monocytes # 1.2 (0.0-1.3) K/mcL Eosinophils # 0.0 (0.0-0.6) K/mcL Basophils # 0.1 (0.0-0.2) K/mcL Reactive Lymphocytes Present A (Not Present) PT 12.2 H (9.4-12.1) Seconds INR 1.1 APTT 30.4 (26.0-36.0) Seconds Sodium (136-145) mEq/L Potassium (3.5-5.1) mEq/L Chloride (98-107) mEq/L Carbon Dioxide (23-29) mEq/L BUN (6-20) mg/dL Creatinine (0.70-1.30) mg/dL Est GFR ( Amer) (> 60) Est GFR (Non-Af Amer) (> 60) BUN/Creatinine Ratio (6-26) Glucose (70-105) mg/dL Calculated Osmolality (280-300) Calcium (8.6-10.3) mg/dL Total Bilirubin (0.3-1.0) mg/dL Direct Bilirubin (0.0-0.2) mg/dL Indirect Bilirubin (0.0-1.2) mg/dL AST (13-39) Units/L ALT (7-52) Units/L Alkaline Phosphatase (34-104) Units/L Ammonia (16-53) mcmol/L Creatine Kinase (30-223) Units/L Troponin I (< 0.04) ng/mL Serum Total Protein (6.4-8.9) g/dL Albumin (3.5-5.7) g/dL Globulin (2.4-3.5) g/dL Albumin/Globulin Ratio (1.1-2.2) TSH (0.340-5.600) mcIU/mL Urine Color Yellow (Yellow) Urine Clarity Clear (Clear) Urine pH 7.5 (5.0-8.0) pH Units Ur Specific [place] 1.015 (1.010-1.025) Urine Protein 30 H (Neg-Trace) mg/dL Urine Glucose (UA) 500 H (Normal) mg/dL Urine Ketones Trace H (Negative) mg/dL Urine Blood Small H (Negative) Urine Nitrite Negative (Negative) Urine Bilirubin Negative (Negative) Urine Urobilinogen Normal (Normal) mg/dL Ur Leukocyte Esterase Negative (Negative) Urine Microscopic RBC 3-5 H (0-3) per hpf Urine Microscopic WBC 0-3 (0-3) per hpf Ur Squamous Epith Cells Few (None-Few) per lpf Urine Bacteria None Seen (None-Few) per hpf Hyaline Casts None Seen (None-Few) per lpf Ur Culture Indicated? NO (NO) Ethyl Alcohol (Less than 10) mg/dL 12/06/17 12/06/17 Range/Units 18:55 18:55 WBC (4.3-11.1) K/mcL RBC (4.19-5.50) M/mcL Hgb (12.9-16.9) g/dL Hct (37.5-50.1) % MCV (83.0-100.0) fL MCH (28.0-33.3) pg MCHC (31.6-35.5) g/dL RDW (11.5-14.5) % Plt Count (140-400) K/mcL MPV (9.4-12.4) fL Immature Gran % (0-4) % Seg Neutrophils % % Lymphocytes % % Monocytes % % Eosinophils % % Basophils % % Neutrophils # (1.6-8.9) K/mcL Lymphocytes # (0.6-4.6) K/mcL Monocytes # (0.0-1.3) K/mcL Eosinophils # (0.0-0.6) K/mcL Basophils # (0.0-0.2) K/mcL Reactive Lymphocytes (Not Present) PT (9.4-12.1) Seconds INR APTT (26.0-36.0) Seconds Sodium 134 L (136-145) mEq/L Potassium 3.3 L (3.5-5.1) mEq/L Chloride 99 (98-107) mEq/L Carbon Dioxide 21 L (23-29) mEq/L BUN 10 (6-20) mg/dL Creatinine 0.80 (0.70-1.30) mg/dL Est GFR ( Amer) > 60 (> 60) Est GFR (Non-Af Amer) > 60 (> 60) BUN/Creatinine Ratio 13 (6-26) Glucose 211 H (70-105) mg/dL Calculated Osmolality 283 (280-300) Calcium 9.7 (8.6-10.3) mg/dL Total Bilirubin 0.5 (0.3-1.0) mg/dL Direct Bilirubin 0.1 (0.0-0.2) mg/dL Indirect Bilirubin 0.4 (0.0-1.2) mg/dL AST 16 (13-39) Units/L ALT 16 (7-52) Units/L Alkaline Phosphatase 121 H (34-104) Units/L Ammonia 38 (16-53) mcmol/L Creatine Kinase 194 (30-223) Units/L Troponin I < 0.03 (< 0.04) ng/mL Serum Total Protein 7.5 (6.4-8.9) g/dL Albumin 4.5 (3.5-5.7) g/dL Globulin 3.0 (2.4-3.5) g/dL Albumin/Globulin Ratio 1.5 (1.1-2.2) TSH 1.222 (0.340-5.600) mcIU/mL Urine Color (Yellow) Urine Clarity (Clear) Urine pH (5.0-8.0) pH Units Ur Specific [place] (1.010-1.025) Urine Protein (Neg-Trace) mg/dL Urine Glucose (UA) (Normal) mg/dL Urine Ketones (Negative) mg/dL Urine Blood (Negative) Urine Nitrite (Negative) Urine Bilirubin (Negative) Urine Urobilinogen (Normal) mg/dL Ur Leukocyte Esterase (Negative) Urine Microscopic RBC (0-3) per hpf Urine Microscopic WBC (0-3) per hpf Ur Squamous Epith Cells (None-Few) per lpf Urine Bacteria (None-Few) per hpf Hyaline Casts (None-Few) per lpf Ur Culture Indicated? (NO) Ethyl Alcohol < 10 (Less than 10) mg/dL - Radiology Data Radiology results reviewed: Yes I reviewed the patient's radiology results. Head CT 12/06/17 18:17 IMPRESSION: Stable CT brain with no acute abnormality and redemonstration of sinusitis as described. D/ / Karime Billingsley MD / Karime Billingsley MD Interpreting Provider: Karime Billingsley MD Chest X-Ray 12/06/17 19:49 IMPRESSION: Endotracheal tube tip terminates 4 cm above the prakash. Enteric tube tip projects over the expected location stomach with side port below the GE junction. Right hilar mass. Recommend further evaluation with CT. D/ / Roscoe Bettencourt MD / Roscoe Bettencourt MD Interpreting Provider: Roscoe Bettencourt MD - EKG Data EKG #1 EKG attestation: Yes I reviewed and interpreted this EKG. EKG results narrative: EKG performed at 1811 shows ventricular rate of 77, sinus rhythm, QRS is 94, QT 435, QTC 493, normal axis, no evidence of LVH, ST depression and V2 and V3 which is unchanged from previous EKG in July 2017. EKG performed at 2011 shows sinus tachycardia with heart rate of 159, NV interval 190, QRS duration 109, QT 268, QTC of 436, normal axis, multiple PVCs are noted throughout continued ST depression, no new ST elevation EKG performed at 2018 shows heart rate of 170, regular rhythm, wide complex QRS at 129, QT 359, QTC 579 EKG performed at 2018 with ventricular rate 170, wide-complex tachycardia again shown EKG performed at 2045 shows ventricular rate of 201, narrow complex tachycardia noted, SVT EKG performed at 2051 shows ventricular rate of 159, regular rhythm, narrow complex QRS at 80, notable for SVT Manuela - Manuela Situation: Demographics, MOA Background: Presenting Complaint, Relevant PMH, Meds, & Allergies Assessment: Vital Signs, Course and respsone to treatment, Exam Concerns, Patient/Family Expectation, Pertinant Lab Results, Outstanding Labs Recommendation: Barrier(s) to disposition, Recommendation based on pending studies, treatments, or consults SDina Report Given to: Dr. Smith Roy Repor Time: 19:30 (accepted to ICU)
[2017-12-06] MEDS ORDERED: niCARdipine 40 MG/200 ML MLS IVC SCH (18:30)
[2017-12-06 18:59] LABS: Bilirubin,Urine Negative (Negative); Blood,Urine Small (Negative); Clarity,Urine Clear (Clear); Color,Urine Yellow (Yellow); Glucose,Urine (UA) 500 mg/dL (Normal); Ketones,Urine Trace mg/dL (Negative); Leukocyte Esterase,Urine Negative (Negative); Nitrite,Urine Negative (Negative); PH,Urine 7.5 pH Units (5.0-8.0); Protein,Urine 30 mg/dL (Neg-Trace); Specific Gravity,Urine 1.015 (1.010-1.025); Urobilinogen,Urine Normal (Normal)
[2017-12-06 19:02] LABS: Bacteria,Urine None Seen per hpf (None-Few); Hyaline Casts,Urine None Seen per lpf (None-Few); Squamous Epithelial Cell,Urine Few per lpf (None-Few); WBC,Urine 0-3 per hpf (0-3)
[2017-12-06 19:15] LABS: Basophils # 0.1 K/mcL (0.0-0.2); Basophils % 0.2 %; Hematocrit 39.6 % (37.5-50.1); Hemoglobin 14.2 g/dL (12.9-16.9); Immature Granulocytes % 0.8 % (0-4); Lymphocytes # 1.8 K/mcL (0.6-4.6); Lymphocytes % 7.1 %; Mean Corpuscular HGB Conc 35.9 g/dL (31.6-35.5); Mean Corpuscular Hemoglobin 29.9 pg (28.0-33.3); Mean Corpuscular Volume 83.4 fL (83.0-100.0); Mean Platelet Volume 8.6 fL (9.4-12.4); Monocytes # 1.2 K/mcL (0.0-1.3); Neutrophils # 21.6 K/mcL (1.6-8.9); Platelet Count 287 K/mcL (140-400); Red Blood Count 4.75 M/mcL (4.19-5.50); Red Cell Distribution Width 13.2 % (11.5-14.5); Segmented Neutrophils % 86.9 %
[2017-12-06 19:23] LABS: INR 1.1; Prothrombin Time 12.2 Seconds (9.4-12.1)
[2017-12-06] MEDS ORDERED: diazePAM 10 MG/2 ML SYRINGE IVP STA ×2 (19:24→19:27)
[2017-12-06 19:26] LABS: Activated Partial Thrombo Time 30.4 Seconds (26.0-36.0)
[2017-12-06] MEDS ORDERED: *HR* LORazepam 2 MG/ML VIAL ONE (19:28)
[2017-12-06 19:31] LABS: Troponin I < 0.03 ng/mL (< 0.04)
[2017-12-06 19:36] LABS: Alanine Aminotransferase 16 Units/L (7-52); Albumin 4.5 g/dL (3.5-5.7); Albumin/Globulin Ratio 1.5 (1.1-2.2); Alkaline Phosphatase 121 Units/L (34-104); Aspartate Amino Transferase 16 Units/L (13-39); BUN/Creatinine Ratio 13 (6-26); Bilirubin,Direct 0.1 mg/dL (0.0-0.2); Bilirubin,Indirect 0.4 mg/dL (0.0-1.2); Bilirubin,Total 0.5 mg/dL (0.3-1.0); Blood Urea Nitrogen 10 mg/dL (6-20); Calcium 9.7 mg/dL (8.6-10.3); Carbon Dioxide 21 mEq/L (23-29); Chloride 99 mEq/L (98-107); Creatine Kinase 194 Units/L (30-223); Ethanol < 10 mg/dL (Less than 10); Glucose 211 mg/dL (70-105); Osmolality,Calculated 283 (280-300); Potassium 3.3 mEq/L (3.5-5.1); Sodium 134 mEq/L (136-145); Total Protein 7.5 g/dL (6.4-8.9); eGFR For Non-African Americans > 60 (> 60)
[2017-12-06 19:41] LABS: Reactive Lymphocytes Present (Not Present)
[2017-12-06 19:45] LABS: Thyroid Stimulating Hormone 1.222 mcIU/mL (0.340-5.600)
[2017-12-06] MEDS ORDERED: *HR* Etomidate 20 MG/10 ML AMPUL IVP ONE (19:48)
[2017-12-06] MEDS ORDERED: *HR* Rocuronium Bromide 50 MG/5 ML VIAL IVP ONE (19:48)
[2017-12-06] MEDS ORDERED: Ondansetron 4 MG/2 ML VIAL IVP PRN (20:29)
[2017-12-06] MEDS ORDERED: Artificial Tears SOLN 15 ML BOTTLE BOTH EYES PRN (20:29)
[2017-12-06] MEDS ORDERED: Naloxone 0.4 MG/ML INJ IVP PRN (20:29)
[2017-12-06] MEDS ORDERED: Acetaminophen 325 MG TABLET PO PRN (20:29)
--- NOTE | 2017-12-06 20:29 | Internal Med History&Physical ---
<Esau Sheehan - Last Filed: 12/06/17 22:15> Date of Encounter: 12/06/17 Time of Encounter: 20:18 Internal Medicine - H&P: HPI Chief complaint: Seizure Admitted From: Home History of present illness: Mr. Giang is a 56 year old male with a PMH of HTN, HLD, Oxycodone dependence for chronic back pain, REGAN, and obesity who presented to the ED after a witnessed seizure. Patient was intubated in the ED to protect his airway and sedated upon admission to the ICU. All history of present illness was obtained from the medical record. Of note, patient had similar seizure episode in July 2017 but does not currently take any antiepileptic therapy other than Gabapentin. Patient's labs revealed leukocytosis WBC 24.8 with left shift, hypokalemia 3.3, normal ammonia level, negative alcohol level, normal CK level, and normal TSH level. He is afebrile and did not have nuchal rigidity upon arrival to ED. Vital signs revealed elevated blood pressure 215/126 and patient was started on Cardene drip. His HR was 200 bpm and rhythm strip revealed narrow complex SVT. Patient was cardioverted in the ED prior to transfer to the ICU. Current rate is sinus tachycardia with HR in 130s. CT brain revealed no acute abnormality and redemonstration of sinusitis. Past Med Surg Social Fam HX - Past Medical History Medical history: hyperlipidemia, hypertension, other Additional medical history: REGAN, chronic back pain, ankle fracture Psychiatric history: no psych history - Past Surgical History Surgical History: other Additional surgical history: Lump removed from breast, ankle; right, broken in 5 places 2008. back x 2- unspecified 2003,2006. hernia- rt inguinal 1986. Excision rt groin condyloma 02/17/14. All teeth removed 10/06/2015 - Social History Smoking Status: Never smoker Alcohol use: none Drug use: none Current living situation: Home, With Family Activity Level: Independent ambulation - Family History Father Living Status: Hx Family Cancer: Yes (Lung) Mother Living Status: Still Living Hx Family Cardiac Disorders: Yes (HTN) Internal Medicine - H&P: Meds Duloxetine HCl [Cymbalta] 60 mg PO BID 08/05/17 [History] Gabapentin [Neurontin] 600 mg PO DAILY 08/05/17 [History] Losartan [Cozaar] 100 mg PO DAILY 08/05/17 [History] Oxycodone HCl 15 mg PO Q4-6H PRN 08/05/17 [History] Tramadol HCl [Ultram] 50 mg PO QID PRN 08/05/17 [History] Loperamide [Imodium] 2 mg PO Q4HR PRN #20 capsule 08/10/17 [Rx] Metoprolol [Lopressor] 12.5 mg PO BID #30 tablet 08/10/17 [Rx] hydrALAZINE [HydrALAZINE] 25 mg PO Q8HR #90 tablet 08/10/17 [Rx] 3 Allergy/AdvReac Type Severity Reaction Status Date / Time codeine Allergy Rash Verified 08/05/17 15:37 ROS unobtainable: due to endotracheal tube All Systems PM: A 10-system review of systems was performed and is negative for pertinent findings except as documented above in the HPI. - Constitutional Vitals: Temp Pulse Resp BP Pulse Ox 98.4 F 79 22 215/126 100 12/06/17 18:10 12/06/17 18:10 12/06/17 19:50 12/06/17 18:10 12/06/17 19:50 Exam: Intubated, restless, moving extremities on light sedation, urinated on self, obese - Head Head exam: Present: atraumatic, normocephalic - Eye Eye exam: Present: PERRL, conjuntiva pink, sclera anicteric Pupils: Present: PERRL - ENT ENT exam: Present: mucous membranes moist, normal oropharynx (Intubated, edentulous, no tongue trauma) - Neck Neck exam general surgery: Present: normal inspection, supple, trachea midline. Absent: lymphadenopathy, tenderness, nuchal rigidity - Respiratory Respiratory exam: Present: accessory muscle use, decreased breath sounds (Equal) , respiratory distress (Intubated). Absent: rales, rhonchi, wheezes - Cardiovascular Cardiovascular exam: Present: RRR, +S1, +S2, tachycardia. Absent: diastolic murmur, gallop, rubs, systolic murmur - GI/Abdominal GI/Abdominal exam: Present: normal bowel sounds, soft, no peritoneal signs. Absent: distended, firm, hepatomegaly, tenderness - Extremities Exam Extremities exam: Present: warm, radial pulses palpable and symmetrical. Absent : calf tenderness, cyanotic, pedal edema, tenderness - Back Exam Back exam: Present: normal inspection. Absent: tenderness - Neurological Exam Additional comments: Lightly sedated, moving all extremities, responds to noxious stimuli - Skin Skin exam: Present: diaphoretic, dry, intact Additional comments: Small 1 x 2 cm area of erythema over left gluteal cleft, no sacral skin breakdown Internal Med - H&P Results - Labs CBC & Chem 7: 12/06/17 18:55 12/06/17 18:55 Labs: Short CBC 12/06/17 Range/Units 18:55 WBC 24.8 H (4.3-11.1) K/mcL Hgb 14.2 (12.9-16.9) g/dL Hct 39.6 (37.5-50.1) % Plt Count 287 (140-400) K/mcL Neutrophils # 21.6 H (1.6-8.9) K/mcL BMP 12/06/17 18:55 Sodium 134 L Potassium 3.3 L Chloride 99 Carbon Dioxide 21 L BUN 10 Creatinine 0.80 Glucose 211 H Calcium 9.7 Cardiac Enzymes 12/06/17 Range/Units 18:55 Troponin I < 0.03 (< 0.04) ng/mL Liver Function 12/06/17 Range/Units 18:55 Total Bilirubin 0.5 (0.3-1.0) mg/dL Direct Bilirubin 0.1 (0.0-0.2) mg/dL AST 16 (13-39) Units/L ALT 16 (7-52) Units/L Alkaline Phosphatase 121 H (34-104) Units/L Albumin 4.5 (3.5-5.7) g/dL Urine 12/06/17 Range/Units 18:37 Urine Color Yellow (Yellow) Urine Clarity Clear (Clear) Urine pH 7.5 (5.0-8.0) pH Units Ur Specific [place] 1.015 (1.010-1.025) Urine Protein 30 H (Neg-Trace) mg/dL Urine Glucose (UA) 500 H (Normal) mg/dL - ABG Interpretation Interpretation: ABG interpreted by me ABG results: 12/06/17 21:55 ABG pH 7.36 ABG pCO2 37 ABG pO2 132 H ABG HCO3 21 ABG Total CO2 22 ABG O2 Saturation 99 H ABG Base Excess -4 L Interpretation: normal - EKG Data -: EKG Interpreted by Myself Rate: tachycardia (Sinus tachycardia heart rate 200) - EKG Data Prior EKG available for review: yes When compared to previous EKG: there are significant changes - Impressions ITS Impressions Chest X-Ray 12/06/17 18:17 IMPRESSION: 1. Again noted is a possible right hilar mass. A chest CT is suggested for further evaluation 2. Otherwise, no acute abnormalities are seen in the chest D/ / Akash Bray MD / Akash Bray MD Interpreting Provider: Akash Bray MD Head CT 12/06/17 18:17 IMPRESSION: Stable CT brain with no acute abnormality and redemonstration of sinusitis as described. D/ / Karime Billingsley MD / Karime Billingsley MD Interpreting Provider: Karime Billingsley MD - Assessment and plan (1) Endotracheally intubated Current Visit: Yes Status: Acute Assessment and plan: Patient was endotracheally intubated in the emergency room to protect his airway in the setting of acute seizure activity Critical care was consulted for ventilator management (2) SVT (supraventricular tachycardia) Current Visit: Yes Status: Acute Assessment and plan: Patient's HR was 200 bpm and rhythm strip revealed narrow complex SVT in the ED. Patient was cardioverted in the ED prior to transfer to the ICU. Current rate is sinus tachycardia with HR in 130s. Initial troponin was negative, no indication for additional troponin measurements at this time Cardiology consulted, recommended Labetalol 5 mg IV every 6 hours when necessary (3) Seizure Current Visit: Yes Status: Acute Assessment and plan: Patient had witnessed seizure prior to arrival and a second seizure episode in the emergency room witnessed by RN. He had entire body tremors and urinated in the bed. Patient was intubated for respiratory protection. Continue seizure precautions. Patient was started on Versed drip. He remained very restless and physical restraints were ordered. Continue close monitoring for seizure activity to avoid inducing rhabdomyolysis or physical injury. EEG ordered Prolactin level was not obtained following seizure episode Consider neurology consult in AM (4) Leukocytosis Current Visit: Yes Status: Acute Assessment and plan: Patient likely has reactive leukocytosis in the setting of seizure activity, patient is afebrile, no signs of infection, no nuchal rigidity or evidence of meningitis Blood cultures pending, consider initiating antibiotics if there is concern for infection following repeat labs and patient's further clinical course Qualifiers: Leukocytosis type: bandemia Qualified Code(s): D72.825 - Bandemia (5) Hypertensive encephalopathy Current Visit: Yes Status: Acute Assessment and plan: Vital signs in the ED revealed elevated blood pressure 215/126 and patient was started on Cardene drip. Blood pressure improved after patient was adequately sedated while on the ventilator. Discontinued Cardene drip. Labetalol ordered prn. CT brain revealed no acute abnormality and redemonstration of sinusitis. (6) Hypertension Current Visit: Yes Status: Chronic Assessment and plan: Patient takes Metoprolol 12.5 mg twice a day and Losartan 100 mg daily at home Resume home meds when extubated Continue close monitoring Qualifiers: Hypertension type: essential hypertension Qualified Code(s): I10 - Essential (primary) hypertension (7) Opioid dependence Current Visit: Yes Status: Chronic Assessment and plan: Patient is currently on fentanyl while intubated Resume home dose Oxycodone 20 mg every 6 hours when necessary pain to prevent withdrawal after he is extubated Qualifiers: Substance use status: uncomplicated Qualified Code(s): F11.20 - Opioid dependence, uncomplicated (8) Chronic back pain Current Visit: No Status: Chronic Assessment and plan: Continue home meds Qualifiers: Back pain location: low back pain Back pain laterality: bilateral Sciatica presence: unspecified whether sciatica present Qualified Code(s): M54.5 - Low back pain; G89.29 - Other chronic pain (9) REGAN (obstructive sleep apnea) Current Visit: Yes Status: Chronic Assessment and plan: Continue CPAP at night once extubated (10) Obesity (BMI 30.0-34.9) Current Visit: Yes Status: Chronic Assessment and plan: BMI 33.5. Lifestyle modification (11) DVT prophylaxis Current Visit: Yes Status: Acute Assessment and plan: Heparin subcutaneous TID (12) Hypokalemia Current Visit: Yes Status: Acute Assessment and plan: Supplemental potassium, magnesium level 1.7 Continue monitoring - Time Spent With Patient Total time spent is greater than 50% in coordination of care (as documented) at patient's floor/unit and/or counseling patient: Aaron Nobles - Last Filed: 12/06/17 22:44> Date of Encounter: 12/06/17 Internal Medicine - H&P: HPI History of present illness: Mr. Giang is a 56 year old male All Systems PM: A 10-system review of systems was performed and is negative for pertinent findings except as documented above in the HPI. - Constitutional Vitals: Temp Pulse Resp BP Pulse Ox 97 F L 100 27 157/109 99 12/06/17 22:10 12/06/17 22:10 12/06/17 22:18 12/06/17 22:18 12/06/17 22:18 Internal Med - H&P Results - Labs CBC & Chem 7: 12/06/17 18:55 12/06/17 18:55 - ABG Interpretation ABG results: 12/06/17 21:55 ABG pH 7.36 ABG pCO2 37 ABG pO2 132 H ABG HCO3 21 ABG Total CO2 22 ABG O2 Saturation 99 H ABG Base Excess -4 L - Assessment and plan (1) Seizure Current Visit: Yes Status: Acute (2) Leukocytosis Current Visit: Yes Status: Acute Qualifiers: Leukocytosis type: bandemia Qualified Code(s): D72.825 - Bandemia (3) Hypertension Current Visit: Yes Status: Chronic Qualifiers: Hypertension type: essential hypertension Qualified Code(s): I10 - Essential (primary) hypertension (4) DVT prophylaxis Current Visit: Yes Status: Acute (5) Hypertensive encephalopathy Current Visit: Yes Status: Acute (6) SVT (supraventricular tachycardia) Current Visit: Yes Status: Acute (7) Opioid dependence Current Visit: Yes Status: Chronic Qualifiers: Substance use status: uncomplicated Qualified Code(s): F11.20 - Opioid dependence, uncomplicated (8) Chronic back pain Current Visit: No Status: Chronic Qualifiers: Back pain location: low back pain Back pain laterality: bilateral Sciatica presence: unspecified whether sciatica present Qualified Code(s): M54.5 - Low back pain; G89.29 - Other chronic pain (9) Obesity (BMI 30.0-34.9) Current Visit: Yes Status: Chronic (10) REGAN (obstructive sleep apnea) Current Visit: Yes Status: Chronic (11) Endotracheally intubated Current Visit: Yes Status: Acute (12) Hypokalemia Current Visit: Yes Status: Acute - Time Spent With Patient Total time spent is greater than 50% in coordination of care (as documented) at patient's floor/unit and/or counseling patient: - Attending Attestation Iam Giang is a 56 year old man with a history of accelerated HTN, previously admitted here with a hypertensive emergency presenting with a seizure episode at which time an LP was done to rule out meningitis as well. He presents again with a witnessed seizure, found to have a BP of 229/152mmHg and was intubated for airway protection. In the ER he also required cardioversion due to a supraventricular tachycardia in the setting of hemodynamic instability. He was placed on nicardipine drip. Physical exam remarkable for soft neck with no nuchal rigidity, PERRLA, equal breath sounds in both lung lockhart, soft abdomen with no guarding, trace pedal edema. Leukocytosis: likely reactive in the setting of seizure episode and cardioversion. No clinical evidence of infection. No indication for antimicrobials at this time. CXR reviewed independently by me reveals no focal infiltrates. UA grossly unremarkable. Hypokalemia: KCL supplementation to be given. Seizure: 2nd episode in the setting of hypertensive emergency. May benefit from neurology consultation as well. If he has another episode overnight, will start loading with anti-epileptic agent. Hypertensive emergency: possibly secondary to non-adherence. Will stop nicardipine drip. For now BP systolic is down to 140mmHg which is more than acceptable. IF he has an increase over 180, will prefer labetalol either as a push trial or infusion given his concomitant tachycardia. Respiratory failure: Intubated for airway protection. Keep HOB elevated. Sedate to RASS -2. Change propofol to midazolam.
[2017-12-06] MEDS ORDERED: 0.9 % Sodium Chloride 1,000 ML IVC SCH (20:30)
[2017-12-06] MEDS: FentaNYL (PF) 1,000 MCG in 0.9 % Sodium Chloride 80 ML IVC SCH (21:19)
[2017-12-06] MEDS ORDERED: D5% in Water 1,000 ML IVC PRN (21:31)
[2017-12-06] MEDS ORDERED: *HR* Dextrose 50 % in Water (Syg) 50 ML SYRINGE IVP PRN (21:31)
[2017-12-06] MEDS ORDERED: Dextrose Gel 15 GM/37.5 ML TUBE PO PRN ×2 (21:31)
[2017-12-06] MEDS ORDERED: *HR* Labetalol 20 MG/4 ML SYRINGE IVP PRN (21:33)
[2017-12-06 21:57] LABS: ABG Base Excess -4 mEq/L (-2 to 3); ABG HCO3 21 mEq/L (21-27); ABG Oxygen Saturation 99 % (95-98); ABG PCO2 37 mmHg (35-45); ABG PH 7.36 pH Units (7.32-7.45); ABG PO2 132 mmHg (85-104); ABG TCO2 22 mEq/L (20-26); Blood Gas Modality PRVC; Blood Gas PEEP 5 cm H2O; Blood Gas Respiration Rate 12; Blood Gas VT 450 cc
[2017-12-06] MEDS: *HR* Heparin 5,000 UNIT/ML VIAL SQ SCH (22:10)
[2017-12-06] MEDS: Artificial Tears SOLN 15 ML BOTTLE BOTH EYES SCH (22:10)
[2017-12-06] MEDS: Chlorhexidine Rinse 15 ML MOUTHWASH MM SCH (22:10)
[2017-12-06 22:33] LABS: Magnesium 1.7 mg/dL (1.6-2.6)
[2017-12-06] MEDS: Pantoprazole 40 MG VIAL IVP SCH (22:44)
[2017-12-07 00:18] LABS: Amphetamine Screen,Urine Negative ng/mL (Cutoff=1000); Barbiturate Screen,Urine Negative ng/mL (Cutoff=200); Benzodiazepines Screen,Urine Positive ng/mL (Cutoff=200); Cannabinoid Screen,Urine Positive ng/mL (Cutoff = 50); Cocaine Screen,Urine Negative ng/mL (Cutoff= 300); Opiate Screen,Urine Negative ng/mL (Cutoff=300); Phencyclidine Screen,Urine Negative ng/mL (Cutoff=25)
[2017-12-07] MEDS: FentaNYL (PF) 1,000 MCG in 0.9 % Sodium Chloride 80 ML IVC SCH ×2 (00:23→05:13)
[2017-12-07] MEDS ORDERED: 0.9 % Sodium Chloride 1,000 ML IVC ONE (02:04)
[2017-12-07 03:18] LABS: Basophils # 0.1 K/mcL (0.0-0.2); Basophils % 0.2 %; Eosinophils % 0.1 %; Hematocrit 37.9 % (37.5-50.1); Hemoglobin 13.2 g/dL (12.9-16.9); Lymphocytes # 3.6 K/mcL (0.6-4.6); Lymphocytes % 16.9 %; Mean Corpuscular HGB Conc 34.8 g/dL (31.6-35.5); Mean Corpuscular Hemoglobin 29.9 pg (28.0-33.3); Mean Corpuscular Volume 85.7 fL (83.0-100.0); Mean Platelet Volume 8.4 fL (9.4-12.4); Monocytes # 2.2 K/mcL (0.0-1.3); Monocytes % 10.2 %; Neutrophils # 15.4 K/mcL (1.6-8.9); Platelet Count 265 K/mcL (140-400); Red Blood Count 4.42 M/mcL (4.19-5.50); Red Cell Distribution Width 13.5 % (11.5-14.5); Segmented Neutrophils % 71.6 %
[2017-12-07 03:28] LABS: BUN/Creatinine Ratio 11 (6-26); Blood Urea Nitrogen 11 mg/dL (6-20); Calcium 8.6 mg/dL (8.6-10.3); Carbon Dioxide 21 mEq/L (23-29); Chloride 101 mEq/L (98-107); Glucose 174 mg/dL (70-105); Osmolality,Calculated 282 (280-300); Potassium 3.1 mEq/L (3.5-5.1); Sodium 134 mEq/L (136-145); eGFR For Non-African Americans > 60 (> 60)
[2017-12-07] MEDS ORDERED: 0.9 % Sodium Chloride 2,000 ML ONE (03:56)
[2017-12-07] MEDS: 0.9 % Sodium Chloride 1,000 ML IVC SCH ×2 (03:59→04:44)
[2017-12-07] MEDS ORDERED: cefTRIAXone 2,000 MG in Water for inj. (sterile) 20 ML 20 ML IVP SCH (04:00)
[2017-12-07] MEDS ORDERED: Vancomycin (wt based) 1,000 MG VIAL IVPB SCH (04:00)
[2017-12-07] MEDS: Insulin LISPRO 300 UNITS/3 ML VIAL SQ SCH ×6 (04:00→20:18)
[2017-12-07] MEDS: Artificial Tears SOLN 15 ML BOTTLE BOTH EYES SCH ×5 (04:02→20:17)
[2017-12-07] MEDS: *HR* Heparin 5,000 UNIT/ML VIAL SQ SCH ×3 (05:13→21:02)
[2017-12-07 05:23] LABS: ABG Base Excess -2 mEq/L (-2 to 3); ABG HCO3 23 mEq/L (21-27); ABG Oxygen Saturation 100 % (95-98); ABG PCO2 39 mmHg (35-45); ABG PH 7.39 pH Units (7.32-7.45); ABG PO2 165 mmHg (85-104); ABG TCO2 25 mEq/L (20-26); Blood Gas Modality PRVC; Blood Gas PEEP 5 cm H2O; Blood Gas Respiration Rate 12; Blood Gas VT 450 cc
[2017-12-07] MEDS ORDERED: Dexmedetomidine HCl 400 MCG/100 ML MLS IVC ONE (07:42)
[2017-12-07] MEDS: Chlorhexidine Rinse 15 ML MOUTHWASH MM SCH ×2 (07:59→20:17)
[2017-12-07] MEDS: Pantoprazole 40 MG VIAL IVP SCH (07:59)
[2017-12-07] MEDS: Dexmedetomidine HCl 400 MCG/100 ML MLS IVC SCH ×3 (08:00→21:01)
[2017-12-07 08:05] LABS: Estimated Average Glucose 137 mg/dl; Hemoglobin A1C 6.4 %
--- NOTE | 2017-12-07 09:25 | Cardiology Consult Note ---
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, trigger - catecholamine surge due to acute [employer] stress, hypertensive crisis, Hypokalemia, hypomagnesemia no recurrence after DCCV - replace K, Mg - Echo - resume home BB - if no recurrence with normal Echo, outpatient Cardiology f/u (2) Nonsustained ventricular tachycardia Current Visit: Yes Status: Acute before persistent SVT, spontaneous resolution, 2/2 hypoK/Mg, acute systemic stress -replace K/Mg - tele - Echo - adenosine trial first if SVT recurs unless hypotension when DCCV is necessary (3) Endotracheally intubated Current Visit: Yes Status: Acute (4) Hypertensive encephalopathy Current Visit: Yes Status: Acute (5) Seizure Current Visit: Yes Status: Acute (6) Opioid dependence Current Visit: Yes Status: Chronic Qualifiers: Substance use status: uncomplicated Qualified Code(s): F11.20 - Opioid dependence, uncomplicated Discussion w patient/family: Patient intubated, no family member in room. Thank you for involving us in the care of your patient. Please call with any questions. History of Present Illness Consult date: 12/07/17 Requesting physician: Aaron Haley Consult reason: SVT Chief complaint: seizure History of present illness: Mr. Giang is a 56 year old male ho HTN, HLD, pre-DM, opioid dependence for LBP , REGAN, seizure w/o anti-epileptics. P/w a seizure witnessed, intubated for airway in ED, hypertensive 200s/100s, also DCCV for SVT on tele 200bpm, SR since. HypoK 3.3, Mg 1.7, + THC, trop neg x1 Review ECGs: SR, prolonged QTc 490 -> sinus tachy, polymorphic PVCs -> ->SVT- NSVT->SR QTc 433-> SVT 200s likely AVNRT Tele SR, no SVT/VT recurrence Echo pending Past Med Surg Social Fam HX - Past Medical History Medical history: other Additional medical history: REGAN, chronic back pain, ankle fracture Psychiatric history: no psych history - Past Surgical History Surgical History: other Additional surgical history: Lump removed from breast, ankle; right, broken in 5 places 2008. back x 2- unspecified 2003,2006. hernia- rt inguinal 1986. Excision rt groin condyloma 02/17/14. All teeth removed 10/06/2015 - Social History Smoking Status: Never smoker Alcohol use: none Drug use: none - Family History Father Living Status: Hx Family Cancer: Yes (Lung) Mother Living Status: Still Living Hx Family Cardiac Disorders: Yes (HTN) Medications and Allergies Duloxetine HCl [Cymbalta] 60 mg PO BID 08/05/17 [History] Gabapentin [Neurontin] 600 mg PO HS 08/05/17 [History] Losartan [Cozaar] 100 mg PO DAILY 08/05/17 [History] Tramadol HCl [Ultram] 50 mg PO QID PRN 08/05/17 [History] Loperamide [Imodium] 2 mg PO Q4HR PRN #20 capsule 08/10/17 [Rx] Metoprolol [Lopressor] 12.5 mg PO BID #30 tablet 08/10/17 [Rx] OxyCODONE Immed Rel [Roxicodone 20 MG] 20 mg PO Q4-6H PRN 12/07/17 [History] Tizanidine HCl [Tizanidine HCl] 4 mg PO TID PRN 12/07/17 [History] 3 Allergy/AdvReac Type Severity Reaction Status Date / Time codeine Allergy Rash Verified 08/05/17 15:37 ROS unobtainable: due to endotracheal tube Physical Examination Vital Signs, Last 4 Hours Temp Pulse Resp BP Pulse Ox 12/07/17 08:59 30 98 12/07/17 08:00 99.3 F 12/07/17 06:00 98 30 146/110 100 Other: General/Neuro: intubated sedated HEENT: anicteric Neck: no JVD, Chest: coarse BS B/L, scattered rhonchi, no W/C Heart: RRR, S1/S2, no S3/S4, no M/G/R Abdominal: BS +, soft, ND Peripheral Pulses: radial pulse 2+ B/L, DP 2+ B/L Skin/Extremities: warm, no LE edema Results 12/07/17 02:49 12/07/17 02:49 Lab Results 12/07/17 12/07/17 02:49 02:49 WBC 21.6 H Hgb 13.2 Hct 37.9 Plt Count 265 Sodium 134 L Potassium 3.1 L Chloride 101 Carbon Dioxide 21 L BUN 11 Creatinine 0.99 Glucose 174 H Calcium 8.6 - Imaging and Cardiology Chest Xray: report reviewed Echo: pending Holter: other (Tele reviewed) - EKG Interpretation EKG results cardiology: personally reviewed Consult Discharge Plan - Plan Referrals: Anshul Barba MD [Primary Care Provider] -
--- NOTE | 2017-12-07 09:31 | Pulmonology Consult Note ---
<Amada Lobo - Last Filed: 12/07/17 12:45> Date of Encounter: 12/07/17 Time of Encounter: 09:29 Assessment and Plan (1) Seizure Current Visit: Yes Status: Acute Pt had seizure like activity in 07/2017 in the setting of hypertension, was admitted, had a full neuro workup and they declined to start him on any seizure medication at that time because they did not witness any seizure like activity and he had a normal EEG. Now coming in with a seizure at home where he was clenching his hands, rolling back and forth, and had AMS for 20-40 minutes. Was post-ictal at home and did not recognize anyone until EMS arrived about 90 mins post onset. In the ED, he had an episode where he went completely rigid, his kvng UE were shaking, he lost control of his bladder, and was post-ictal for a while after this activity. He was unable to control his secretions and was emergently intubated. - Consult neurology - Neurology ordered EEG which did not show any epileptiform activity - Neurology ordered MRI - Pt is sedated and ventilated at this time, continue sedation and monitor for seizure activity (2) Leukocytosis Current Visit: Yes Status: Acute WBC elevated at 24.8 yesterday, 21.6 today. - BC pending, MRSA swab negative, UA did not demonstrate leukocyte esterase, WBC , or bacteria in significant amounts and culture was not indicated. - CXR demonstrated a right hilar masslike opacity with hypoinflation which is consistent on repeat CXR post-intubation. No wheezes appreciated on exam. Order CT Chest once patient is more stable for further evaluation. - Head CT demonstrated sinusitis which is apparently recurrent. Start unasyn 3g Q6. - He received 15 mg/kg vancomycin and 2000mg Ceftriaxone in the ED, which has since been discontinued. - Pt is technically normothermic here, but has one elevated temperature of 100.4 just after midnight today, and other temperatures around 100. - Continue to monitor Qualifiers: Leukocytosis type: bandemia Qualified Code(s): D72.825 - Bandemia (3) Hypertension Current Visit: Yes Status: Chronic Pt was Hypertensive on arrival, treated with losartan, lopressor. Now intubated and sedated and pressures have been soft in the 90s/60s. Will likely need further outpatient management of his hypertension medications as he takes 100mg Losartan QD and 12.5 Metoprolol BID but continues to have hypertensive emergencies with AMS and seizure like activity. - Continue to monitor - Maintain MAP >65 - Keep SBP <180 Qualifiers: Hypertension type: essential hypertension Qualified Code(s): I10 - Essential (primary) hypertension (4) DVT prophylaxis Current Visit: Yes Status: Acute Low Dose heparin 5000 units SQ Q8, SCDs in place. History of Present Illness Consult date: 12/07/17 Requesting physician: Aaron Haley Reason for consult: other (critical care management) Chief complaint: AMS History of present illness: Mr. Giang is a 56 year old male with a PMH of HTN, HLD, Oxycodone dependence for chronic back pain, REGAN, and obesity who presented to the ED after a witnessed seizure. Patient was intubated in the ED to protect his airway and sedated upon admission to the ICU. All history of present illness was obtained from the medical record. Of note, patient had similar seizure episode in July 2017 but does not currently take any antiepileptic therapy other than Gabapentin. Patient's labs revealed leukocytosis WBC 24.8 with left shift, hypokalemia 3.3, normal ammonia level, negative alcohol level, normal CK level, and normal TSH level. He is afebrile and did not have nuchal rigidity upon arrival to ED. Vital signs revealed elevated blood pressure 215/126 and patient was started on Cardene drip. His HR was 200 bpm and rhythm strip revealed narrow complex SVT. Patient was cardioverted in the ED prior to transfer to the ICU. CT brain revealed no acute abnormality and redemonstration of sinusitis. Currently in NSR with normal rate. BC, UC, MRSA pending, Lactic was 2.0 at 0249, repeat lactic scheduled for 0900 today. UDS positive for BDZ and THC. Recently started on Keppra, neurology consulted, EEG failed to demonstrate seizure activity, Brain MRI pending Past Med Surg Social Fam HX - Past Medical History Medical history: other Additional medical history: REGAN, chronic back pain, ankle fracture Psychiatric history: no psych history - Past Surgical History Surgical History: other Additional surgical history: Lump removed from breast, ankle; right, broken in 5 places 2008. back x 2- unspecified 2003,2006. hernia- rt inguinal 1986. Excision rt groin condyloma 02/17/14. All teeth removed 10/06/2015 - Social History Smoking Status: Never smoker Alcohol use: none Drug use: none - Family History Father Living Status: Hx Family Cancer: Yes (Lung) Mother Living Status: Still Living Hx Family Cardiac Disorders: Yes (HTN) Medications and Allergies Duloxetine HCl [Cymbalta] 60 mg PO BID 08/05/17 [History] Gabapentin [Neurontin] 600 mg PO HS 08/05/17 [History] Losartan [Cozaar] 100 mg PO DAILY 08/05/17 [History] Tramadol HCl [Ultram] 50 mg PO QID PRN 08/05/17 [History] Loperamide [Imodium] 2 mg PO Q4HR PRN #20 capsule 08/10/17 [Rx] Metoprolol [Lopressor] 12.5 mg PO BID #30 tablet 08/10/17 [Rx] OxyCODONE Immed Rel [Roxicodone 20 MG] 20 mg PO Q4-6H PRN 12/07/17 [History] Tizanidine HCl [Tizanidine HCl] 4 mg PO TID PRN 12/07/17 [History] 3 Allergy/AdvReac Type Severity Reaction Status Date / Time codeine Allergy Rash Verified 08/05/17 15:37 ROS unobtainable: due to endotracheal tube All Systems: The remainder of the systems were reviewed and are negative Physical Examination Vital Signs: Vital Signs, Last 4 Hours Temp Pulse Resp BP Pulse Ox 12/07/17 08:59 30 98 12/07/17 08:00 99.3 F 12/07/17 06:00 98 30 146/110 100 General appearance: comatose (does not awaken to voice, does not follow commands ) Eyes: nonicteric ENT: oropharynx dry Effort: other (intubated and ventilated) Auscultation: bilateral: clear Cardiovascular: regular rate and rhythm Gastrointestinal: normoactive bowel sounds, soft, non-distended Integumentary: normal Extremities: no cyanosis, no edema, pink and warm Musculoskeletal: no deformities Ventilator Settings Ventilator Settings: Ventilator Settings, Last 8 Hours Ventilator Tidal Volume 450 Setting Ventilator Tidal Volume 450 Setting Ventilator Tidal Volume 450 Setting Ventilator Tidal Volume 450 Setting Ventilator Tidal Volume 450 Setting Ventilator Tidal Volume 450 Setting Ventilator Tidal Volume 450 Setting Ventilator Tidal Volume 450 Setting Ventilator Respiratory Rate 12 Setting Ventilator Respiratory Rate 12 Setting Ventilator Respiratory Rate 12 Setting Ventilator Respiratory Rate 12 Setting Ventilator Respiratory Rate 12 Setting Ventilator Respiratory Rate 12 Setting Ventilator Respiratory Rate 12 Setting Ventilator Respiratory Rate 12 Setting Actual Respiratory Rate 30 Actual Respiratory Rate 30 Actual Respiratory Rate 29 Actual Respiratory Rate 26 Actual Respiratory Rate 24 Actual Respiratory Rate 25 Actual Respiratory Rate 28 Positive End Expiratory 5 Pressure Positive End Expiratory 5 Pressure Positive End Expiratory 5 Pressure Positive End Expiratory 5 Pressure Positive End Expiratory 5 Pressure Positive End Expiratory 5 Pressure Positive End Expiratory 5 Pressure Positive End Expiratory 5 Pressure Peak Inspiratory Airway 6.6 Pressure Peak Inspiratory Airway 6.3 Pressure Peak Inspiratory Airway 7.1 Pressure Peak Inspiratory Airway 6.3 Pressure Peak Inspiratory Airway 6.3 Pressure Peak Inspiratory Airway 6.2 Pressure Peak Inspiratory Airway 6.4 Pressure Results - Laboratory Findings CBC and BMP: 12/07/17 02:49 12/07/17 02:49 ABG ABG pH 7.39 pH Units (7.32-7.45) 12/07/17 05:19 ABG pCO2 39 mmHg (35-45) 12/07/17 05:19 ABG pO2 165 mmHg (85-104) H 12/07/17 05:19 ABG O2 Saturation 100 % (95-98) H 12/07/17 05:19 PT/INR, D-dimer PT 12.2 Seconds (9.4-12.1) H 12/06/17 18:55 Abnormal lab findings: Abnormal lab results WBC 21.6 K/mcL (4.3-11.1) H 12/07/17 02:49 MPV 8.4 fL (9.4-12.4) L 12/07/17 02:49 Neutrophils # 15.4 K/mcL (1.6-8.9) H 12/07/17 02:49 Monocytes # 2.2 K/mcL (0.0-1.3) H 12/07/17 02:49 Reactive Lymphocytes Present (Not Present) A 12/06/17 18:55 PT 12.2 Seconds (9.4-12.1) H 12/06/17 18:55 ABG pO2 165 mmHg (85-104) H 12/07/17 05:19 ABG O2 Saturation 100 % (95-98) H 12/07/17 05:19 Sodium 134 mEq/L (136-145) L 12/07/17 02:49 Potassium 3.1 mEq/L (3.5-5.1) L 12/07/17 02:49 Carbon Dioxide 21 mEq/L (23-29) L 12/07/17 02:49 Glucose 174 mg/dL (70-105) H 12/07/17 02:49 POC Glucose 260 mg/dL (70-99) H 12/06/17 23:46 Hemoglobin A1c 6.4 % (-5.6) H 12/07/17 02:49 Alkaline Phosphatase 121 Units/L (34-104) H 12/06/17 18:55 Urine Protein 30 mg/dL (Neg-Trace) H 12/06/17 18:37 Urine Glucose (UA) 500 mg/dL (Normal) H 12/06/17 18:37 Urine Ketones Trace mg/dL (Negative) H 12/06/17 18:37 Urine Blood Small (Negative) H 12/06/17 18:37 Urine Microscopic RBC 3-5 per hpf (0-3) H 12/06/17 18:37 U Benzodiazepines Scrn Positive ng/mL (Qyfqgd=412) H 12/06/17 18:37 U Marijuana (THC) Screen Positive ng/mL (Cutoff = 50) H 12/06/17 18:37 - Microbiology Findings Microbiology Findings: Microbiology, Last 48 Hours 12/06/17 22:15 Blood Culture - Preliminary Peripheral Venipuncture Culture is incubating and being continuously monitored for growth. Final report to follow. 12/06/17 22:27 Blood Culture - Preliminary Peripheral Venipuncture Culture is incubating and being continuously monitored for growth. Final report to follow. - Diagnostic Findings Chest x-ray: report reviewed, image reviewed - Clinical Findings Intake & Output: Intake & Output 12/06/17 12/07/17 12/07/17 23:59 07:59 15:59 Intake Total 130 / 130 3960 / 3960 200 / 200 Output Total 300 / 300 200 / 200 400 / 400 Balance -170 / -170 3760 / 3760 -200 / -200 Consult Discharge Plan - Plan Referrals: Anshul Barba MD [Primary Care Provider] - <Freddie Moss - Last Filed: 12/07/17 22:54> Date of Encounter: 12/07/17 All Systems: The remainder of the systems were reviewed and are negative Physical Examination Vital Signs: Vital Signs, Last 4 Hours Temp Pulse Resp BP Pulse Ox 12/07/17 22:00 64 21 86/55 95 12/07/17 21:05 21 81/57 96 12/07/17 21:00 64 20 81/57 96 18 20:06 99.5 F 12/07/17 20:00 61 21 87/55 94 12/07/17 19:00 64 21 89/54 94 Ventilator Settings Ventilator Settings: Ventilator Settings, Last 8 Hours Ventilator Tidal Volume 450 Setting Ventilator Tidal Volume 450 Setting Ventilator Tidal Volume 450 Setting Ventilator Tidal Volume 450 Setting Ventilator Tidal Volume 450 Setting Ventilator Tidal Volume 450 Setting Ventilator Tidal Volume 450 Setting Ventilator Tidal Volume 450 Setting Ventilator Respiratory Rate 12 Setting Ventilator Respiratory Rate 12 Setting Ventilator Respiratory Rate 12 Setting Ventilator Respiratory Rate 12 Setting Ventilator Respiratory Rate 12 Setting Ventilator Respiratory Rate 12 Setting Ventilator Respiratory Rate 12 Setting Ventilator Respiratory Rate 12 Setting Actual Respiratory Rate 21 Actual Respiratory Rate 21 Actual Respiratory Rate 20 Actual Respiratory Rate 21 Actual Respiratory Rate 21 Actual Respiratory Rate 21 Actual Respiratory Rate 25 Actual Respiratory Rate 19 Positive End Expiratory 5 Pressure Positive End Expiratory 5 Pressure Positive End Expiratory 5 Pressure Positive End Expiratory 5 Pressure Positive End Expiratory 5 Pressure Positive End Expiratory 5 Pressure Positive End Expiratory 5 Pressure Positive End Expiratory 5 Pressure Peak Inspiratory Airway 13 Pressure Peak Inspiratory Airway 10 Pressure Peak Inspiratory Airway 12 Pressure Peak Inspiratory Airway 9.4 Pressure Peak Inspiratory Airway 13 Pressure Peak Inspiratory Airway 16 Pressure Peak Inspiratory Airway 8.2 Pressure Peak Inspiratory Airway 13 Pressure Results - Laboratory Findings CBC and BMP: 12/07/17 02:49 12/07/17 02:49 ABG ABG pH 7.39 pH Units (7.32-7.45) 12/07/17 05:19 ABG pCO2 39 mmHg (35-45) 12/07/17 05:19 ABG pO2 165 mmHg (85-104) H 12/07/17 05:19 ABG O2 Saturation 100 % (95-98) H 12/07/17 05:19 PT/INR, D-dimer PT 12.2 Seconds (9.4-12.1) H 12/06/17 18:55 Abnormal lab findings: Abnormal lab results WBC 21.6 K/mcL (4.3-11.1) H 12/07/17 02:49 MPV 8.4 fL (9.4-12.4) L 12/07/17 02:49 Neutrophils # 15.4 K/mcL (1.6-8.9) H 12/07/17 02:49 Monocytes # 2.2 K/mcL (0.0-1.3) H 12/07/17 02:49 Reactive Lymphocytes Present (Not Present) A 12/06/17 18:55 PT 12.2 Seconds (9.4-12.1) H 12/06/17 18:55 ABG pO2 165 mmHg (85-104) H 12/07/17 05:19 ABG O2 Saturation 100 % (95-98) H 12/07/17 05:19 Sodium 134 mEq/L (136-145) L 12/07/17 02:49 Potassium 3.1 mEq/L (3.5-5.1) L 12/07/17 02:49 Carbon Dioxide 21 mEq/L (23-29) L 12/07/17 02:49 Glucose 174 mg/dL (70-105) H 12/07/17 02:49 POC Glucose 260 mg/dL (70-99) H 12/06/17 23:46 Hemoglobin A1c 6.4 % (-5.6) H 12/07/17 02:49 Alkaline Phosphatase 121 Units/L (34-104) H 12/06/17 18:55 Urine Protein 30 mg/dL (Neg-Trace) H 12/06/17 18:37 Urine Glucose (UA) 500 mg/dL (Normal) H 12/06/17 18:37 Urine Ketones Trace mg/dL (Negative) H 12/06/17 18:37 Urine Blood Small (Negative) H 12/06/17 18:37 Urine Microscopic RBC 3-5 per hpf (0-3) H 12/06/17 18:37 U Benzodiazepines Scrn Positive ng/mL (Udayfr=562) H 12/06/17 18:37 U Marijuana (THC) Screen Positive ng/mL (Cutoff = 50) H 12/06/17 18:37 - Microbiology Findings Microbiology Findings: Microbiology, Last 48 Hours 12/06/17 22:15 Blood Culture - Preliminary Peripheral Venipuncture Culture is incubating and being continuously monitored for growth. Final report to follow. 12/06/17 22:27 Blood Culture - Preliminary Peripheral Venipuncture Culture is incubating and being continuously monitored for growth. Final report to follow. - Clinical Findings Intake & Output: Intake & Output 12/07/17 12/07/1718 07:59 15:59 23:59 Intake Total 3960 / 3960 850 / 850 500 / 500 Output Total 200 / 200 550 / 550 250 / 250 Balance 3760 / 3760 300 / 300 250 / 250 - Attending Attestation I saw and evaluated this patient and my medical decision-making was reviewed with the Resident Physician. I agree with the documented findings, disposition and treatment plan as described except to the extent set forth below. We independently had [id number] contact with the patient I spent 40 minutes of Critical Care time with this patient. It involved decision making of high complexity to assess, manipulate, and support vital organ system failure and/or to prevent further life threatening deterioration of the patient's condition. The time involved in the performance of separately reportable procedures was not counted toward critical care time. Patient seen and examined at bedside Labs, radiology, chart personally reviewed. Management was reviewed during multidisciplinary critical care rounds. [employer] : not following commands he is intubated and sedated looks pretty agitated. Patient presented with altered mental status and with some seizures. Patient [employer] event is so far negative ,neurology is consulted EEG did not show any focal seizure-like activity or any signs of encephalopathy. Pulm: Patient has hilar mass which needs to be further evaluation with CAT scan. Patient has acceptable oxygenation and ventilation with this low tidal volume strategy to continue the same current vent settings. Cards: Patient is hemodynamically stable stable no signs of sepsis FEN-GI: Diet according to nutrition Renal: Output were reviewed ID: No active infectious disease issues with Heme/Onc: Labs reviewed Endo: Glucose Monitored Integ/MSK: Skin Care per routine ICU Nursing Protocol to prevent ulcers. Lines: All lines examined without evidence of infection : Dispo: Critically ill CODE:Full Code
--- NOTE | 2017-12-07 09:48 | Neurology - Consult Note ---
<Agustin Richardson P - Last Filed: 12/07/17 12:03> Date of Encounter: 12/07/17 Time of Encounter: 08:45 Assessment and Plan (1) Hypertensive encephalopathy Current Visit: Yes Status: Acute He was admitted for witness seizure activities and altered mental status and high blood pressure He had nausea and vomiting before he had seizure attack . He is patient of HTN under medication ,his BP was 220/[address] scan : negative for blood clot or any acute intracranial pathology Seizure activities might be related to to hypertensive encephalopathy MRI brain done on 08/06 : normal report Previous EEG : not suggestive of seizure disorder EEG : report : no evidence of epileptiform activity identified during the study Plan : MRI head with contrast We will monitor (2) Seizure Current Visit: Yes Status: Acute He has total 3 episodes of seizure, first one in July 2017 He was on gabapentine , no any other seizure medication He was admitted this time with witness seizure activities and altered mental status He is patient of HTN under medication ,his BP was 220/120 Urine toxicology positive for marijuana and benzodiazepine CT scan : negative for blood clot or any acute intracranial pathology Seizure might be due to hypertensive encephalopathy or other metabolic insults EEG : report ::no evidence of epileptiform activity identified during the study We will monitor History of Present Illness Chief complaint: Hypertension, altered mental status and seizure HPI: Mr. Giang is a 56 year old male with past medical diagnosis of hyperlipidemia , HTN, Oxycodone dependence for back pain ,obstructive sleep apnea and obesity admitted to [facility] via ED for witnessed seizure, high blood pressure and altered sensorium . The patient was intubated in ED and sedated before admission to ICU.He has had total 3 episodes of seizure ( one episode in July 2017 , one episode at home witnessed by his family member and one at ED) .He has had seizure activities for about 45 minutes including post-ictal confusion states . As per family history , he didn't have any history of tongue bite, bowel and bladder incontinence , fall trauma or head injury . He is a patient of chronic essential hypertension under regular medication . But ,when he was taken to ED his BP was 215/126. He also has history of nausea and vomiting before he had seizure activities. During my visit today , patient was intubated and sedated .He was hemodynamically stable, he was on continuous sedation as he was very combative and restless Vitals : BP 146/110, tem 98F, pul 100 Labs: TLC 21.6, Na 132, K 3.1 , PT 12.2, INR 1.1 , Ammonia 38 , TSH 1.22, Calcium 9.7, Magnesium 1.7 Urine positive for Marijuana and benzodiazepine , ethyl alcohol :<10 CT head : no acute abnormality EEG report awaited Past Med Surg Social Fam HX - Past Medical History Medical history: other Additional medical history: REGAN, chronic back pain, ankle fracture Psychiatric history: no psych history - Past Surgical History Surgical History: other Additional surgical history: Lump removed from breast, ankle; right, broken in 5 places 2008. back x 2- unspecified 2003,2006. hernia- rt inguinal 1986. Excision rt groin condyloma 02/17/14. All teeth removed 10/06/2015 - Social History Smoking Status: Never smoker Alcohol use: none Drug use: none - Family History Father Living Status: Hx Family Cancer: Yes (Lung) Mother Living Status: Still Living Hx Family Cardiac Disorders: Yes (HTN) Medications and Allergies Duloxetine HCl [Cymbalta] 60 mg PO BID 08/05/17 [History] Gabapentin [Neurontin] 600 mg PO HS 08/05/17 [History] Losartan [Cozaar] 100 mg PO DAILY 08/05/17 [History] Tramadol HCl [Ultram] 50 mg PO QID PRN 08/05/17 [History] Loperamide [Imodium] 2 mg PO Q4HR PRN #20 capsule 08/10/17 [Rx] Metoprolol [Lopressor] 12.5 mg PO BID #30 tablet 08/10/17 [Rx] OxyCODONE Immed Rel [Roxicodone 20 MG] 20 mg PO Q4-6H PRN 12/07/17 [History] Tizanidine HCl [Tizanidine HCl] 4 mg PO TID PRN 12/07/17 [History] 3 Allergy/AdvReac Type Severity Reaction Status Date / Time codeine Allergy Rash Verified 08/05/17 15:37 All Systems: The remainder of the systems were reviewed and are negative Physical Examination - Vital Signs Vital Signs: Initial Vital Signs Temp Pulse Resp BP Pulse Ox 98.4 F 79 16 215/126 100 12/06/17 18:10 12/06/17 18:10 12/06/17 18:10 12/06/17 18:10 12/06/17 18:10 - Exam Exam: He was sedated and intubated. Through neurological exam was not possible,GCS 9/10 Pupil dilated but reactive to light both side Reflex normal and planter down going Motor power and sensation could not be possible to assess thoroughly - Constitutional General appearance: acutely ill Results - Laboratory Findings CBC and BMP: 12/07/17 02:49 12/07/17 02:49 Abnormal lab findings: Abnormal lab results WBC 21.6 K/mcL (4.3-11.1) H 12/07/17 02:49 MPV 8.4 fL (9.4-12.4) L 12/07/17 02:49 Neutrophils # 15.4 K/mcL (1.6-8.9) H 12/07/17 02:49 Monocytes # 2.2 K/mcL (0.0-1.3) H 12/07/17 02:49 Reactive Lymphocytes Present (Not Present) A 12/06/17 18:55 PT 12.2 Seconds (9.4-12.1) H 12/06/17 18:55 ABG pO2 165 mmHg (85-104) H 12/07/17 05:19 ABG O2 Saturation 100 % (95-98) H 12/07/17 05:19 Sodium 134 mEq/L (136-145) L 12/07/17 02:49 Potassium 3.1 mEq/L (3.5-5.1) L 12/07/17 02:49 Carbon Dioxide 21 mEq/L (23-29) L 12/07/17 02:49 Glucose 174 mg/dL (70-105) H 12/07/17 02:49 POC Glucose 260 mg/dL (70-99) H 12/06/17 23:46 Hemoglobin A1c 6.4 % (-5.6) H 12/07/17 02:49 Alkaline Phosphatase 121 Units/L (34-104) H 12/06/17 18:55 Urine Protein 30 mg/dL (Neg-Trace) H 12/06/17 18:37 Urine Glucose (UA) 500 mg/dL (Normal) H 12/06/17 18:37 Urine Ketones Trace mg/dL (Negative) H 12/06/17 18:37 Urine Blood Small (Negative) H 12/06/17 18:37 Urine Microscopic RBC 3-5 per hpf (0-3) H 12/06/17 18:37 U Benzodiazepines Scrn Positive ng/mL (Oabjdz=019) H 12/06/17 18:37 U Marijuana (THC) Screen Positive ng/mL (Cutoff = 50) H 12/06/17 18:37 Consult Discharge Plan - Plan Referrals: Anshul Barba MD [Primary Care Provider] - <Akash Quintnailla Param - Last Filed: 12/07/17 16:49> Date of Encounter: 12/07/17 Time of Encounter: 16:35 Assessment and Plan (1) Hypertensive encephalopathy Current Visit: Yes Status: Acute As above. Case was discussed with the resident, patient was seen and examined independently. I suspect that he is experiencing symptomatic seizures due to hypertensive encephalopathy. He is been admitted to the hospital on 2 different occasions with malignant hypertension. Hypertensive encephalopathy is frequently associated with severe headaches, confusion, nausea and/or vomiting, and seizures. As is the case with most neurologic diseases that are symptomatic as a result of some other underlying etiology, the recommendation is to treat the underlying etiology of the problem. The patient's and daughter present both state that he takes his antihypertensives as recommended. Certainly he needs an antihypertensive regimen will be effective over the long -term. Ultimately then he will run risks of severe cerebrovascular disease, cardiovascular disease, and other organ failure. At this juncture however I would not recommend antiepileptic medications. His EEG revealed normal sleep activity associated with the sedation and does not reveal evidence of underlying seizure potential. Ultimately will determine whether or not he has any lasting injury once we are able to lighten up the sedation and extubate him. At this juncture we are not able to get the MRI due to the intubation. There is no evidence of seizure activity at this time. Critical care time spent with this patient in the intensive care unit was 60 minutes. History of Present Illness HPI: The chart was reviewed, the patient was seen and examined independently. The case was discussed with the resident. I agree with his history as stated above. The highest blood pressure identified since his admission was 229/152. I did interpret the EEG which revealed normal sleep activity. I did not identify a pattern of encephalopathy or seizure activity. Otherwise CT scan of the head was unremarkable, laboratory work reveals no metabolic etiology to explain this. ROS unobtainable: due to mental status All Systems: The remainder of the systems were reviewed and are negative Physical Examination - Vital Signs Vital Signs: Initial Vital Signs Temp Pulse Resp BP Pulse Ox 98.4 F 79 16 215/126 100 12/06/17 18:10 12/06/17 18:10 12/06/17 18:10 12/06/17 18:10 12/06/17 18:10 - Exam Exam: The chart was reviewed, the patient was seen and examined independently. I agree with the resident's assessment as stated above. Cranial nerve functions are intact however patient has no spontaneous eye opening which is likely secondary to sedation. The neurologic examination is significantly altered under these conditions. Tone is flaccid throughout. Results - Laboratory Findings CBC and BMP: 12/07/17 02:49 12/07/17 02:49 Abnormal lab findings: Abnormal lab results WBC 21.6 K/mcL (4.3-11.1) H 12/07/17 02:49 MPV 8.4 fL (9.4-12.4) L 12/07/17 02:49 Neutrophils # 15.4 K/mcL (1.6-8.9) H 12/07/17 02:49 Monocytes # 2.2 K/mcL (0.0-1.3) H 12/07/17 02:49 Reactive Lymphocytes Present (Not Present) A 12/06/17 18:55 PT 12.2 Seconds (9.4-12.1) H 12/06/17 18:55 ABG pO2 165 mmHg (85-104) H 12/07/17 05:19 ABG O2 Saturation 100 % (95-98) H 12/07/17 05:19 Sodium 134 mEq/L (136-145) L 12/07/17 02:49 Potassium 3.1 mEq/L (3.5-5.1) L 12/07/17 02:49 Carbon Dioxide 21 mEq/L (23-29) L 12/07/17 02:49 Glucose 174 mg/dL (70-105) H 12/07/17 02:49 POC Glucose 260 mg/dL (70-99) H 12/06/17 23:46 Hemoglobin A1c 6.4 % (-5.6) H 12/07/17 02:49 Alkaline Phosphatase 121 Units/L (34-104) H 09/13/18 18:55 Urine Protein 30 mg/dL (Neg-Trace) H 12/06/17 18:37 Urine Glucose (UA) 500 mg/dL (Normal) H 12/06/17 18:37 Urine Ketones Trace mg/dL (Negative) H 12/06/17 18:37 Urine Blood Small (Negative) H 12/06/17 18:37 Urine Microscopic RBC 3-5 per hpf (0-3) H 12/06/17 18:37 U Benzodiazepines Scrn Positive ng/mL (Adwkic=127) H 12/06/17 18:37 U Marijuana (THC) Screen Positive ng/mL (Cutoff = 50) H 12/06/17 18:37
[2017-12-07] MEDS: FentaNYL (PF) 2,500 MCG in EMPTY BAG 1 EACH IVC SCH ×2 (09:56→15:47)
[2017-12-07] MEDS: Midazolam HCl 100 MG in 0.9 % Sodium Chloride 80 ML IVC SCH ×3 (09:58→18:04)
[2017-12-07] MEDS ORDERED: Gadolinium Contrast Agent (WT Based) IV PRN (11:47)
--- NOTE | 2017-12-07 11:58 | EEG/EMG/Oth Biometrics Report ---
EEG Procedure Report Date of procedure: 12/07/17 EEG Procedure: Routine EEG Procedure Note: This is a report of a 21 channel bipolar and referential montages EEG recorded on an individual who has had a second episode of seizure associated with malignant hypertension. There is no posterior dominant alpha rhythm identified at any time during the recording. The recording is primarily reflective of stage II sleep as reference by the presence of vertex sharp waves, K complexes and sleep spindles throughout the recording and its entirety. Hyperventilation is not performed and the patient is on the ventilator. Photic stimulation is performed and does not produce a driving response. The EKG rhythm strip reveals normal sinus rhythm at 90 bpm. Impressions: This EEG recording is reflective of normal stage II sleep. There is no evidence of epileptiform activity identified during the study. Is no evidence of encephalopathy identified. Please correlate clinically.
[2017-12-07] MEDS: Ampicillin/Sulbactam 3,000 MG in 0.9 % Sodium Chloride Mini Bag 100 ML IVPB SCH ×2 (13:55→18:03)
[2017-12-08] MEDS: Artificial Tears SOLN 15 ML BOTTLE BOTH EYES SCH ×6 (00:21→21:02)
[2017-12-08] MEDS: Insulin LISPRO 300 UNITS/3 ML VIAL SQ SCH ×6 (00:22→21:02)
[2017-12-08] MEDS: Ampicillin/Sulbactam 3,000 MG in 0.9 % Sodium Chloride Mini Bag 100 ML IVPB SCH ×4 (01:06→21:01)
[2017-12-08] MEDS: Midazolam HCl 100 MG in 0.9 % Sodium Chloride 80 ML IVC SCH ×3 (01:28→20:23)
[2017-12-08] MEDS: FentaNYL (PF) 2,500 MCG in EMPTY BAG 1 EACH IVC SCH ×3 (03:26→21:24)
[2017-12-08] MEDS: Dexmedetomidine HCl 400 MCG/100 ML MLS IVC SCH ×5 (03:27→20:23)
[2017-12-08] MEDS: *HR* Heparin 5,000 UNIT/ML VIAL SQ SCH ×3 (04:45→21:02)
[2017-12-08 05:05] LABS: ABG Base Excess -1 mEq/L (-2 to 3); ABG HCO3 23 mEq/L (21-27); ABG Oxygen Saturation 93 % (95-98); ABG PCO2 37 mmHg (35-45); ABG PO2 67 mmHg (85-104); ABG TCO2 24 mEq/L (20-26); Blood Gas Modality ASSIST CONTROL; Blood Gas PEEP 5 cm H2O; Blood Gas Respiration Rate 12; Blood Gas VT 450 cc
[2017-12-08 06:59] LABS: Basophils % 0.2 %; Eosinophils # 0.1 K/mcL (0.0-0.6); Eosinophils % 0.3 %; Hematocrit 33.7 % (37.5-50.1); Immature Granulocytes % 0.5 % (0-4); Lymphocytes # 2.3 K/mcL (0.6-4.6); Lymphocytes % 14.6 %; Mean Corpuscular HGB Conc 34.1 g/dL (31.6-35.5); Mean Corpuscular Hemoglobin 29.9 pg (28.0-33.3); Mean Corpuscular Volume 87.8 fL (83.0-100.0); Mean Platelet Volume 8.5 fL (9.4-12.4); Monocytes # 1.2 K/mcL (0.0-1.3); Monocytes % 7.9 %; Neutrophils # 11.9 K/mcL (1.6-8.9); Platelet Count 169 K/mcL (140-400); Red Blood Count 3.84 M/mcL (4.19-5.50); Red Cell Distribution Width 13.7 % (11.5-14.5); Segmented Neutrophils % 76.5 %
[2017-12-08 07:18] LABS: Hemoglobin 11.5 g/dL (12.9-16.9)
[2017-12-08 07:19] LABS: Calcium 8.5 mg/dL (8.6-10.3); Magnesium 1.8 mg/dL (1.6-2.6); Potassium 3.6 mEq/L (3.5-5.1)
[2017-12-08] MEDS: Chlorhexidine Rinse 15 ML MOUTHWASH MM SCH ×2 (07:53→21:02)
[2017-12-08] MEDS: Pantoprazole 40 MG VIAL IVP SCH (07:53)
[2017-12-08] MEDS ORDERED: Ringers Solution, Lactated 1,000 ML IVC ONE (08:05)
--- NOTE | 2017-12-08 08:49 | Electrocardiograph Report ---
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
--- NOTE | 2017-12-08 08:53 | Electrocardiograph Report ---
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
--- NOTE | 2017-12-08 09:00 | Electrocardiograph Report ---
[address] [address] Test Date: 2017-12-06 Pat Name: Iam Giang Department: EXAM5 Room: 11 Gender: M Care Technician: : 1960 Requested By: Steven London Order Number: [id number] Reading MD: Thom Boudreaux Measurements Intervals [place] Rate: 159 P: -8 [place]: 190 QRS: 100 QRSD: 109 T: -61 QT: 268 QTc: 436 Interpretive Statements Supraventricular tachycardia Frequent PVCs Diffuse ST-T changes possibly due to rate and/or ischemia Electronically Signed On 12-08-2017 8:58:15 EDT by Thom Boudreaux
[2017-12-08] MEDS ORDERED: Haloperidol Lactate 5 MG/ML VIAL IVP PRN (09:30)
--- NOTE | 2017-12-08 11:53 | Neurology Progress Note ---
Date of Encounter: 12/08/17 Time of Encounter: 11:49 Assessment and Plan (1) Hypertensive encephalopathy Current Visit: Yes Status: Acute Patient's neurologic condition has not changed. He remains sedated on the ventilator. He has not had any outward seizure activity, however he is having rhythmic myoclonic twitching of the eyelids. Whenever his sedation is lightened , he becomes agitated and combative. I will obtain an EEG today to rule out the possibility of ongoing seizure activity. Case was discussed with ICU nursing, as well as the patient's was present in the room. Critical care time spent with this patient today was 45 minutes. Subjective Interval history: The chart was reviewed, the patient was seen and examined. There is been no neurologic change since my initial assessment. I did discuss the case with nursing personnel. Patient's was also in the room. It seems that whenever they try to light not the sedation he gets agitated and starts thrashing. He still on heavy sedation therefore my neurologic examination will not be accurate. I did not identify a slight twitches of the eyelids. I will order an EEG for today to rule out further seizure activity. Objective - Constitutional Vitals: Temp Pulse Resp BP Pulse Ox 100.5 F H 60 20 85/54 97 12/08/17 08:00 12/08/17 11:00 12/08/17 11:00 12/08/17 11:00 12/08/17 11:00 - Neurological Exam Additional comments: Patient remains on sedation with Precedex, Versed, and fentanyl. No from a neurologic examination of will be followed. Pupils are pinpoint and nonreactive. Corneal reflexes are absent. Doll's eyes are absent. Tone is flaccid throughout. I did not however identify very minimal rhythmic myoclonic twitches of the eyelids bilaterally. - VTE Documentation of Mechanical Device: Intermittent pneumatic compression device Results - Laboratory Findings CBC and BMP: 12/08/17 06:46 12/08/17 06:46 Abnormal lab findings: Abnormal lab results WBC 15.5 K/mcL (4.3-11.1) H 12/08/17 06:46 RBC 3.84 M/mcL (4.19-5.50) L 12/08/17 06:46 Hgb 11.5 g/dL (12.9-16.9) L D 12/08/17 06:46 Hct 33.7 % (37.5-50.1) L 12/08/17 06:46 MPV 8.5 fL (9.4-12.4) L 12/08/17 06:46 Neutrophils # 11.9 K/mcL (1.6-8.9) H 12/08/17 06:46 Reactive Lymphocytes Present (Not Present) A 12/06/17 18:55 PT 12.2 Seconds (9.4-12.1) H 12/06/17 18:55 ABG pO2 67 mmHg (85-104) L 12/08/17 05:02 ABG O2 Saturation 93 % (95-98) L 12/08/17 05:02 Sodium 135 mEq/L (136-145) L 12/08/17 06:46 Carbon Dioxide 20 mEq/L (23-29) L 12/08/17 06:46 BUN 25 mg/dL (6-20) H 12/08/17 06:46 Creatinine 2.11 mg/dL (0.70-1.30) H 12/08/17 06:46 Est GFR ( Amer) 40 (> 60) L 12/08/17 06:46 Est GFR (Non-Af Amer) 33 (> 60) L 12/08/17 06:46 Glucose 154 mg/dL (70-105) H 12/08/17 06:46 Hemoglobin A1c 6.4 % (-5.6) H 12/07/17 02:49 Calcium 8.5 mg/dL (8.6-10.3) L 12/08/17 06:46 Alkaline Phosphatase 121 Units/L (34-104) H 12/06/17 18:55 Urine Protein 30 mg/dL (Neg-Trace) H 12/06/17 18:37 Urine Glucose (UA) 500 mg/dL (Normal) H 12/06/17 18:37 Urine Ketones Trace mg/dL (Negative) H 12/06/17 18:37 Urine Blood Small (Negative) H 12/06/17 18:37 Urine Microscopic RBC 3-5 per hpf (0-3) H 12/06/17 18:37 U Benzodiazepines Scrn Positive ng/mL (Fdauya=378) H 12/06/17 18:37 U Marijuana (THC) Screen Positive ng/mL (Cutoff = 50) H 12/06/17 18:37 Consult Discharge Plan - Plan Referrals: Anshul Barba MD [Primary Care Provider] -
--- NOTE | 2017-12-08 11:57 | Pulmonology Progress Note ---
<Amada Lobo - Last Filed: 12/08/17 12:31> Date of Encounter: 12/08/17 Time of Encounter: 11:55 Assessment and Plan (1) Seizure Current Visit: Yes Status: Acute Pt had seizure like activity in 07/2017 in the setting of hypertension, was admitted, had a full neuro workup and they declined to start him on any seizure medication at that time because they did not witness any seizure like activity and he had a normal EEG. Now coming in with a seizure at home where he was clenching his hands, rolling back and forth, and had AMS for 20-40 minutes. Was post-ictal at home and did not recognize anyone until EMS arrived about 90 mins post onset. In the ED, he had an episode where he went completely rigid, his kvng UE were shaking, he lost control of his bladder, and was post-ictal for a while after this activity. He was unable to control his secretions and was emergently intubated. Neurology has been consulted. - Initial EEG did not show any epileptiform activity, but on re-evalation on they saw what might be myclonic activity around his eyes so ordered a repeat EEG. - Neurology ordered MRI, but pt cannot go to MRI on any drips and cannot come off sedation at this time as he becomes agitated - PT's repeat EKG showed QT >500 so we cannot add seroquel or haldol in an attempt to d/c precedex - Pt is sedated and ventilated at this time, continue sedation and monitor for seizure activity (2) Leukocytosis Current Visit: Yes Status: Acute WBC elevated at admission to 24.8, today 15.5. Pt had a few elevated temperatures overnight, but has since been normothermic. He was started on Unasyn yesterday for sinusitus visualized on head CT. BC and UC pending from , no growth yet. Pt will need CT for further evaluation of stable right hilar mass. CXR remains unchanged. No wheezes on exam. Qualifiers: Leukocytosis type: bandemia Qualified Code(s): D72.825 - Bandemia (3) Hypertension Current Visit: Yes Status: Chronic Pt has remained somewhat hypotensive during his stay here, although he has not required pressors to maintain MAP >65. Labetolol is ordered PRN for SBP >180. - Continue to monitor Qualifiers: Hypertension type: essential hypertension Qualified Code(s): I10 - Essential (primary) hypertension (4) DVT prophylaxis Current Visit: Yes Status: Acute Low dose heparin 5000 units Q8, SCDs in place Subjective Principal diagnosis: hypertensive encephalopathy Interval history: Pt is a 56 M with PMH of HTN, HLD, Oxycodone dependence for chronic back pain, REGAN, and obesity who presented to the ED after a witnessed seizure, admitted with witnessed seizure with post-ictal state, loss of bladder control in the ED , and hypertensive encephalopathy. Overnight he had no acute events, although he remains agitated and cannot leave the department for MRI Neurology has requested. Repeat EKG showed a prolonged QT interval so it will not be possible to add seroquel or haldol at this time. Neurology saw him this morning and saw activity that could be myoclonic around his eyes, so ordered a repeat EEG. We will wait for the results of this report. Repeat lactic yesterday showed a decrease to 0.9 from 2.0, lowering the suspicion of an infectious cause. Creatinine is elevated over baseline at 2.11. Unasyn was started yesterday for sinusitus seen on CT. Tube feeds were started yesterday. Objective PUL Vital signs: Last Vital Signs Temp 100.5 F H 12/08/17 08:00 Pulse 60 12/08/17 11:00 Resp 20 12/08/17 11:00 BP 85/54 12/08/17 11:00 Pulse Ox 97 12/08/17 11:00 General appearance: comatose Eyes: nonicteric ENT: oropharynx dry Effort: other (ventilated) Auscultation: bilateral: clear Cardiovascular: regular rate and rhythm Gastrointestinal: normoactive bowel sounds Integumentary: normal Extremities: no cyanosis, edema (Mild kvng LE edema) other (sedated) Ventilator Settings Ventilator Settings: Ventilator Settings, Last 8 Hours Ventilator Tidal Volume 500 Setting Ventilator Tidal Volume 500 Setting Ventilator Tidal Volume 500 Setting Ventilator Tidal Volume 500 Setting Ventilator Tidal Volume 450 Setting Ventilator Tidal Volume 500 Setting Ventilator Tidal Volume 450 Setting Ventilator Tidal Volume 450 Setting Ventilator Tidal Volume 450 Setting Ventilator Tidal Volume 450 Setting Ventilator Tidal Volume 450 Setting Ventilator Tidal Volume 450 Setting Ventilator Respiratory Rate 12 Setting Ventilator Respiratory Rate 12 Setting Ventilator Respiratory Rate 12 Setting Ventilator Respiratory Rate 12 Setting Ventilator Respiratory Rate 12 Setting Ventilator Respiratory Rate 12 Setting Ventilator Respiratory Rate 12 Setting Ventilator Respiratory Rate 12 Setting Ventilator Respiratory Rate 12 Setting Ventilator Respiratory Rate 12 Setting Ventilator Respiratory Rate 12 Setting Ventilator Respiratory Rate 12 Setting Actual Respiratory Rate 20 Actual Respiratory Rate 20 Actual Respiratory Rate 15 Actual Respiratory Rate 20 Actual Respiratory Rate 20 Actual Respiratory Rate 16 Actual Respiratory Rate 18 Actual Respiratory Rate 17 Actual Respiratory Rate 18 Actual Respiratory Rate 20 Actual Respiratory Rate 21 Positive End Expiratory 5 Pressure Positive End Expiratory 5 Pressure Positive End Expiratory 5 Pressure Positive End Expiratory 5 Pressure Positive End Expiratory 5 Pressure Positive End Expiratory 5 Pressure Positive End Expiratory 5 Pressure Positive End Expiratory 5 Pressure Positive End Expiratory 5 Pressure Positive End Expiratory 5 Pressure Positive End Expiratory 5 Pressure Positive End Expiratory 5 Pressure Peak Inspiratory Airway 17 Pressure Peak Inspiratory Airway 13 Pressure Peak Inspiratory Airway 11 Pressure Peak Inspiratory Airway 13 Pressure Peak Inspiratory Airway 7.1 Pressure Peak Inspiratory Airway 7.1 Pressure Peak Inspiratory Airway 7.1 Pressure Peak Inspiratory Airway 9.9 Pressure Peak Inspiratory Airway 8.4 Pressure Peak Inspiratory Airway 8.3 Pressure Peak Inspiratory Airway 6.2 Pressure Results - Laboratory Findings CBC and BMP: 12/08/17 06:46 12/08/17 06:46 ABG ABG pH 7.40 pH Units (7.32-7.45) 12/08/17 05:02 ABG pCO2 37 mmHg (35-45) 12/08/17 05:02 ABG pO2 67 mmHg (85-104) L 12/08/17 05:02 ABG O2 Saturation 93 % (95-98) L 12/08/17 05:02 PT/INR, D-dimer PT 12.2 Seconds (9.4-12.1) H 12/06/17 18:55 Abnormal lab findings: Abnormal lab results WBC 15.5 K/mcL (4.3-11.1) H 12/08/17 06:46 RBC 3.84 M/mcL (4.19-5.50) L 12/08/17 06:46 Hgb 11.5 g/dL (12.9-16.9) L D 12/08/17 06:46 Hct 33.7 % (37.5-50.1) L 12/08/17 06:46 MPV 8.5 fL (9.4-12.4) L 12/08/17 06:46 Neutrophils # 11.9 K/mcL (1.6-8.9) H 12/08/17 06:46 Reactive Lymphocytes Present (Not Present) A 12/06/17 18:55 PT 12.2 Seconds (9.4-12.1) H 12/06/17 18:55 ABG pO2 67 mmHg (85-104) L 12/08/17 05:02 ABG O2 Saturation 93 % (95-98) L 12/08/17 05:02 Sodium 135 mEq/L (136-145) L 12/08/17 06:46 Carbon Dioxide 20 mEq/L (23-29) L 12/08/17 06:46 BUN 25 mg/dL (6-20) H 12/08/17 06:46 Creatinine 2.11 mg/dL (0.70-1.30) H 12/08/17 06:46 Est GFR ( Amer) 40 (> 60) L 12/08/17 06:46 Est GFR (Non-Af Amer) 33 (> 60) L 12/08/17 06:46 Glucose 154 mg/dL (70-105) H 12/08/17 06:46 Hemoglobin A1c 6.4 % (-5.6) H 12/07/17 02:49 Calcium 8.5 mg/dL (8.6-10.3) L 12/08/17 06:46 Alkaline Phosphatase 121 Units/L (34-104) H 12/06/17 18:55 Urine Protein 30 mg/dL (Neg-Trace) H 12/06/17 18:37 Urine Glucose (UA) 500 mg/dL (Normal) H 12/06/17 18:37 Urine Ketones Trace mg/dL (Negative) H 12/06/17 18:37 Urine Blood Small (Negative) H 12/06/17 18:37 Urine Microscopic RBC 3-5 per hpf (0-3) H 12/06/17 18:37 U Benzodiazepines Scrn Positive ng/mL (Xmqtqj=523) H 12/06/17 18:37 U Marijuana (THC) Screen Positive ng/mL (Cutoff = 50) H 12/06/17 18:37 - Microbiology Findings Microbiology Findings: Microbiology, Last 48 Hours 12/07/17 02:16 Urine Culture - Preliminary Urine,Catheterized No growth. 12/06/17 22:15 Blood Culture - Preliminary Peripheral Venipuncture Culture is incubating and being continuously monitored for growth. Final report to follow. 12/06/17 22:27 Blood Culture - Preliminary Peripheral Venipuncture Culture is incubating and being continuously monitored for growth. Final report to follow. - Diagnostic Findings Chest x-ray: report reviewed, image reviewed - Clinical Findings Intake & Output: Intake & Output 12/07/17 12/08/17 12/08/17 23:59 07:59 15:59 Intake Total 500 / 500 1086 / 1086 200 / 200 Output Total 350 / 350 250 / 250 Balance 150 / 150 836 / 836 200 / 200 Weight 109.5 kg - VTE Documentation of Mechanical Device: Intermittent pneumatic compression device Consult Discharge Plan - Plan Referrals: Anshul Barba MD [Primary Care Provider] - <Freddie Moss S - Last Filed: 12/08/17 20:30> Date of Encounter: 12/08/17 Objective PUL Vital signs: Last Vital Signs Temp 99.2 F 12/08/17 16:00 Pulse 54 12/08/17 20:00 Resp 17 12/08/17 20:00 BP 89/62 12/08/17 19:00 Pulse Ox 98 12/08/17 20:00 Ventilator Settings Ventilator Settings: Ventilator Settings, Last 8 Hours Ventilator Tidal Volume 500 Setting Ventilator Tidal Volume 500 Setting Ventilator Tidal Volume 500 Setting Ventilator Tidal Volume 500 Setting Ventilator Tidal Volume 500 Setting Ventilator Tidal Volume 500 Setting Ventilator Tidal Volume 500 Setting Ventilator Tidal Volume 500 Setting Ventilator Tidal Volume 500 Setting Ventilator Tidal Volume 500 Setting Ventilator Respiratory Rate 12 Setting Ventilator Respiratory Rate 12 Setting Ventilator Respiratory Rate 12 Setting Ventilator Respiratory Rate 12 Setting Ventilator Respiratory Rate 12 Setting Ventilator Respiratory Rate 12 Setting Ventilator Respiratory Rate 12 Setting Ventilator Respiratory Rate 12 Setting Ventilator Respiratory Rate 12 Setting Ventilator Respiratory Rate 12 Setting Actual Respiratory Rate 17 Actual Respiratory Rate 16 Actual Respiratory Rate 19 Actual Respiratory Rate 20 Actual Respiratory Rate 16 Actual Respiratory Rate 20 Actual Respiratory Rate 16 Actual Respiratory Rate 20 Actual Respiratory Rate 20 Actual Respiratory Rate 24 Positive End Expiratory 5 Pressure Positive End Expiratory 5 Pressure Positive End Expiratory 5 Pressure Positive End Expiratory 5 Pressure Positive End Expiratory 5 Pressure Positive End Expiratory 5 Pressure Positive End Expiratory 5 Pressure Positive End Expiratory 5 Pressure Positive End Expiratory 5 Pressure Positive End Expiratory 5 Pressure Peak Inspiratory Airway 15 Pressure Peak Inspiratory Airway 18 Pressure Peak Inspiratory Airway 18 Pressure Peak Inspiratory Airway 18 Pressure Peak Inspiratory Airway 16 Pressure Peak Inspiratory Airway 16 Pressure Peak Inspiratory Airway 21 Pressure Peak Inspiratory Airway 8 Pressure Peak Inspiratory Airway 8 Pressure Peak Inspiratory Airway 6 Pressure Results - Laboratory Findings CBC and BMP: 12/08/17 06:46 12/08/17 06:46 ABG ABG pH 7.40 pH Units (7.32-7.45) 12/08/17 05:02 ABG pCO2 37 mmHg (35-45) 12/08/17 05:02 ABG pO2 67 mmHg (85-104) L 12/08/17 05:02 ABG O2 Saturation 93 % (95-98) L 12/08/17 05:02 PT/INR, D-dimer PT 12.2 Seconds (9.4-12.1) H 12/06/17 18:55 Abnormal lab findings: Abnormal lab results WBC 15.5 K/mcL (4.3-11.1) H 12/08/17 06:46 RBC 3.84 M/mcL (4.19-5.50) L 12/08/17 06:46 Hgb 11.5 g/dL (12.9-16.9) L D 12/08/17 06:46 Hct 33.7 % (37.5-50.1) L 12/08/17 06:46 MPV 8.5 fL (9.4-12.4) L 12/08/17 06:46 Neutrophils # 11.9 K/mcL (1.6-8.9) H 12/08/17 06:46 Reactive Lymphocytes Present (Not Present) A 12/06/17 18:55 PT 12.2 Seconds (9.4-12.1) H 12/06/17 18:55 ABG pO2 67 mmHg (85-104) L 12/08/17 05:02 ABG O2 Saturation 93 % (95-98) L 12/08/17 05:02 Sodium 135 mEq/L (136-145) L 12/08/17 06:46 Carbon Dioxide 20 mEq/L (23-29) L 12/08/17 06:46 BUN 25 mg/dL (6-20) H 12/08/17 06:46 Creatinine 2.11 mg/dL (0.70-1.30) H 12/08/17 06:46 Est GFR ( Amer) 40 (> 60) L 12/08/17 06:46 Est GFR (Non-Af Amer) 33 (> 60) L 12/08/17 06:46 Glucose 154 mg/dL (70-105) H 12/08/17 06:46 Hemoglobin A1c 6.4 % (-5.6) H 12/07/17 02:49 Calcium 8.5 mg/dL (8.6-10.3) L 12/08/17 06:46 Alkaline Phosphatase 121 Units/L (34-104) H 12/06/17 18:55 Urine Protein 30 mg/dL (Neg-Trace) H 12/06/17 18:37 Urine Glucose (UA) 500 mg/dL (Normal) H 12/06/17 18:37 Urine Ketones Trace mg/dL (Negative) H 12/06/17 18:37 Urine Blood Small (Negative) H 12/06/17 18:37 Urine Microscopic RBC 3-5 per hpf (0-3) H 12/06/17 18:37 U Benzodiazepines Scrn Positive ng/mL (Lcosph=170) H 12/06/17 18:37 U Marijuana (THC) Screen Positive ng/mL (Cutoff = 50) H 12/06/17 18:37 - Microbiology Findings Microbiology Findings: Microbiology, Last 48 Hours 12/07/17 02:16 Urine Culture - Preliminary Urine,Catheterized No growth. 12/06/17 22:15 Blood Culture - Preliminary Peripheral Venipuncture Culture is incubating and being continuously monitored for growth. Final report to follow. 12/06/17 22:27 Blood Culture - Preliminary Peripheral Venipuncture Culture is incubating and being continuously monitored for growth. Final report to follow. - Clinical Findings Intake & Output: Intake & Output 12/08/17 12/08/17 12/08/17 07:59 15:59 23:59 Intake Total 1086 / 1086 714 / 714 274 / 274 Output Total 250 / 250 300 / 300 Balance 836 / 836 414 / 414 274 / 274 - Attending Attestation - Attending Attestation I saw and evaluated this patient and my medical decision-making was reviewed with the Resident Physician. I agree with the documented findings, disposition and treatment plan as described except to the extent set forth below. We independently had [id number] contact with the patient I spent 33 minutes of Critical Care time with this patient. It involved decision making of high complexity to assess, manipulate, and support vital organ system failure and/or to prevent further life threatening deterioration of the patient's condition. The time involved in the performance of separately reportable procedures was not counted toward critical care time. Patient seen and examined at bedside Labs, radiology, chart personally reviewed. Management was reviewed during multidisciplinary critical care rounds. WAD LUBRICATOR : Patient not following commands he is intubated and sedated looks pretty agitated. Patient presented with altered mental status and with some seizures. Patient WAD LUBRICATOR event is so far negative ,neurology is consulted EEG did not show any focal seizure-like activity or any signs of encephalopathy. 12/08 Patient had a repeat EEG which didnt show any evidence of seizure activity . Patient still not following commands Pulm: Patient has hilar mass which needs to be further evaluation with CAT scan. Patient has acceptable oxygenation and ventilation with this low tidal volume strategy to continue the same current vent settings. 12/08 Patient has bilateral bibasilar airspace disease concern for pneumonia vs hydrostatic plulmonary edema started on antibiotics. Cards: Patient blood pressure is on the lower side no obvious signs of shock FEN-GI: Diet according to nutrition Renal: Output were reviewed ID: Concern for aspiration pneumonia started on Unasyn. Heme/Onc: Labs reviewed Endo: Glucose Monitored Integ/MSK: Skin Care per routine ICU Nursing Protocol to prevent ulcers. Lines: All lines examined without evidence of infection : Dispo: Critically ill CODE:Full Code
--- NOTE | 2017-12-08 17:51 | Electrocardiograph Report ---
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
[2017-12-09] MEDS: Ampicillin/Sulbactam 3,000 MG in 0.9 % Sodium Chloride Mini Bag 100 ML IVPB SCH ×3 (00:03→13:50)
[2017-12-09] MEDS: Insulin LISPRO 300 UNITS/3 ML VIAL SQ SCH ×4 (00:04→11:37)
[2017-12-09] MEDS: Artificial Tears SOLN 15 ML BOTTLE BOTH EYES SCH ×4 (00:04→12:30)
[2017-12-09 04:21] LABS: Basophils % 0.3 %; Eosinophils # 0.2 K/mcL (0.0-0.6); Hematocrit 33.5 % (37.5-50.1); Hemoglobin 11.1 g/dL (12.9-16.9); Immature Granulocytes % 0.5 % (0-4); Lymphocytes # 3.5 K/mcL (0.6-4.6); Lymphocytes % 23.2 %; Mean Corpuscular HGB Conc 33.1 g/dL (31.6-35.5); Mean Corpuscular Hemoglobin 29.2 pg (28.0-33.3); Mean Corpuscular Volume 88.2 fL (83.0-100.0); Mean Platelet Volume 8.8 fL (9.4-12.4); Monocytes # 1.3 K/mcL (0.0-1.3); Monocytes % 8.5 %; Platelet Count 148 K/mcL (140-400); Red Cell Distribution Width 13.7 % (11.5-14.5); Segmented Neutrophils % 66.5 %
[2017-12-09 04:40] LABS: Albumin 3.2 g/dL (3.5-5.7); Albumin/Globulin Ratio 1.1 (1.1-2.2); Bilirubin,Total 0.5 mg/dL (0.3-1.0); Calcium 8.6 mg/dL (8.6-10.3); Globulin 2.8 g/dL (2.4-3.5); Magnesium 2.1 mg/dL (1.6-2.6); Phosphorous 4.1 mg/dL (2.7-4.5); Potassium 4.1 mEq/L (3.5-5.1)
[2017-12-09] MEDS: *HR* Heparin 5,000 UNIT/ML VIAL SQ SCH ×2 (05:16→13:50)
--- NOTE | 2017-12-09 07:15 | Pulmonology Progress Note ---
<Jessie Meza E - Last Filed: 12/09/17 12:24> Date of Encounter: 12/09/17 Time of Encounter: 07:15 Assessment and Plan (1) Seizure Status: Acute Neurology has been consulted. - Initial EEG did not show any epileptiform activity, but on re-evalation on they saw what might be myclonic activity around his eyes so ordered a repeat EEG. - Neurology ordered MRI, but pt cannot go to MRI on any drips and cannot come off sedation at this time as he becomes agitated - PT's repeat EKG showed QT >500 so we cannot add seroquel or haldol in an attempt to d/c precedex - Pt is sedated and ventilated at this time, continue sedation and monitor for seizure activity (2) Leukocytosis Status: Acute WBC count on admission 24.8, yesterday 15.5, today 15. PAtient had low grade fevers overnight Continue of Unasyn for sinusitis If patient decompensates will broaden coverage to VAncomycin and Zosyn Qualifiers: Leukocytosis type: bandemia Qualified Code(s): D72.825 - Bandemia (3) Hypertension Status: Chronic Blood pressure this morning was 136/95 Labetalol PRN for SBP >180 Will continue to monitor Qualifiers: Hypertension type: essential hypertension Qualified Code(s): I10 - Essential (primary) hypertension (4) DVT prophylaxis Status: Acute low dose heparin 5000 units Q8, SCDs Subjective Principal diagnosis: hypertensive encephalopathy Interval history: Pt is a 56 M with PMH of HTN, HLD, Oxycodone dependence for chronic back pain, REGAN, and obesity who presented to the ED after a witnessed seizure, admitted with witnessed seizure with post-ictal state, loss of bladder control in the ED , and hypertensive encephalopathy. Repeat EKG showed a prolonged QT interval so it will not be possible to add seroquel or haldol at this time. Neurology saw him 12/08/17 and saw activity that could be myoclonic around his eyes, so ordered a repeat EEG. Repeat lactic yesterday showed a decrease to 0.9 from 2.0 , lowering the suspicion of an infectious cause. Creatinine is elevated over baseline at 2.0. Unasyn was started 12/07/[address] CT. Tube feeds were started 12/07/17. Objective PUL Vital signs: Last Vital Signs Temp 98.4 F 12/09/17 03:45 Pulse 74 12/09/17 06:00 Resp 22 12/09/17 06:14 BP 136/95 12/09/17 06:14 Pulse Ox 99 12/09/17 06:14 General appearance: other (ventilated and sedated) Eyes: nonicteric ENT: oropharynx dry Neck: no lymphadenopathy Effort: normal Auscultation: bilateral: diminished breath sounds (lower lobes), wheezes (worse on right) Cardiovascular: regular rate and rhythm Gastrointestinal: normoactive bowel sounds, soft, non-distended Integumentary: normal Extremities: no cyanosis, pink and warm, edema (1+ pitting at feet) Ventilator Settings Ventilator Settings: Ventilator Settings, Last 8 Hours Ventilator Tidal Volume 500 Setting Ventilator Tidal Volume 500 Setting Ventilator Tidal Volume 500 Setting Ventilator Tidal Volume 500 Setting Ventilator Tidal Volume 500 Setting Ventilator Tidal Volume 500 Setting Ventilator Tidal Volume 500 Setting Ventilator Tidal Volume 500 Setting Ventilator Tidal Volume 500 Setting Ventilator Tidal Volume 500 Setting Ventilator Respiratory Rate 12 Setting Ventilator Respiratory Rate 12 Setting Ventilator Respiratory Rate 12 Setting Ventilator Respiratory Rate 12 Setting Ventilator Respiratory Rate 12 Setting Ventilator Respiratory Rate 12 Setting Ventilator Respiratory Rate 12 Setting Ventilator Respiratory Rate 12 Setting Ventilator Respiratory Rate 12 Setting Ventilator Respiratory Rate 12 Setting Actual Respiratory Rate 22 Actual Respiratory Rate 16 Actual Respiratory Rate 16 Actual Respiratory Rate 16 Actual Respiratory Rate 15 Actual Respiratory Rate 15 Actual Respiratory Rate 19 Actual Respiratory Rate 19 Actual Respiratory Rate 19 Actual Respiratory Rate 19 Positive End Expiratory 5 Pressure Positive End Expiratory 5 Pressure Positive End Expiratory 5 Pressure Positive End Expiratory 5 Pressure Positive End Expiratory 5 Pressure Positive End Expiratory 5 Pressure Positive End Expiratory 5 Pressure Positive End Expiratory 5 Pressure Positive End Expiratory 5 Pressure Positive End Expiratory 5 Pressure Peak Inspiratory Airway 15 Pressure Peak Inspiratory Airway 8.6 Pressure Peak Inspiratory Airway 8.6 Pressure Peak Inspiratory Airway 7.2 Pressure Peak Inspiratory Airway 6.7 Pressure Peak Inspiratory Airway 6.7 Pressure Peak Inspiratory Airway 7.0 Pressure Peak Inspiratory Airway 7.0 Pressure Peak Inspiratory Airway 7.0 Pressure Peak Inspiratory Airway 7.0 Pressure Results - Laboratory Findings CBC and BMP: 12/09/17 03:47 12/09/17 03:47 ABG ABG pH 7.40 pH Units (7.32-7.45) 12/08/17 05:02 ABG pCO2 37 mmHg (35-45) 12/08/17 05:02 ABG pO2 67 mmHg (85-104) L 12/08/17 05:02 ABG O2 Saturation 93 % (95-98) L 12/08/17 05:02 PT/INR, D-dimer PT 12.2 Seconds (9.4-12.1) H 12/06/17 18:55 Abnormal lab findings: Abnormal lab results WBC 15.0 K/mcL (4.3-11.1) H 12/09/17 03:47 RBC 3.80 M/mcL (4.19-5.50) L 12/09/17 03:47 Hgb 11.1 g/dL (12.9-16.9) L 12/09/17 03:47 Hct 33.5 % (37.5-50.1) L 12/09/17 03:47 MPV 8.8 fL (9.4-12.4) L 12/09/17 03:47 Neutrophils # 10.0 K/mcL (1.6-8.9) H 12/09/17 03:47 Reactive Lymphocytes Present (Not Present) A 12/06/17 18:55 PT 12.2 Seconds (9.4-12.1) H 12/06/17 18:55 ABG pO2 67 mmHg (85-104) L 12/08/17 05:02 ABG O2 Saturation 93 % (95-98) L 12/08/17 05:02 BUN 28 mg/dL (6-20) H 12/09/17 03:47 Creatinine 2.00 mg/dL (0.70-1.30) H 12/09/17 03:47 Est GFR ( Amer) 42 (> 60) L 12/09/17 03:47 Est GFR (Non-Af Amer) 35 (> 60) L 12/09/17 03:47 Glucose 115 mg/dL (70-105) H 12/09/17 03:47 POC Glucose 106 mg/dL (70-99) H 12/08/17 20:17 Hemoglobin A1c 6.4 % (-5.6) H 12/07/17 02:49 Serum Total Protein 6.0 g/dL (6.4-8.9) L 12/09/17 03:47 Albumin 3.2 g/dL (3.5-5.7) L 12/09/17 03:47 Urine Protein 30 mg/dL (Neg-Trace) H 12/06/17 18:37 Urine Glucose (UA) 500 mg/dL (Normal) H 12/06/17 18:37 Urine Ketones Trace mg/dL (Negative) H 12/06/17 18:37 Urine Blood Small (Negative) H 12/06/17 18:37 Urine Microscopic RBC 3-5 per hpf (0-3) H 12/06/17 18:37 U Benzodiazepines Scrn Positive ng/mL (Npxyku=240) H 12/06/17 18:37 U Marijuana (THC) Screen Positive ng/mL (Cutoff = 50) H 12/06/17 18:37 - Microbiology Findings Microbiology Findings: Microbiology, Last 48 Hours 12/07/17 02:16 Urine Culture - Preliminary Urine,Catheterized No growth. - Clinical Findings Intake & Output: Intake & Output 12/08/17 12/08/17 12/09/17 15:59 23:59 07:59 Intake Total 714 / 714 831 / 831 637 / 637 Output Total 300 / 300 525 / 525 650 / 650 Balance 414 / 414 306 / 306 -13 - VTE Documentation of Mechanical Device: Intermittent pneumatic compression device Consult Discharge Plan - Plan Referrals: Anshul Barba MD [Primary Care Provider] - <Freddie Moss - Last Filed: 12/09/17 21:32> Date of Encounter: 12/09/17 Objective PUL Vital signs: Last Vital Signs Temp 99.5 F 12/09/17 12:00 Pulse 61 12/09/17 16:00 Resp 20 12/09/17 16:00 BP 93/57 12/09/17 16:00 Pulse Ox 99 12/09/17 16:00 Ventilator Settings Ventilator Settings: Ventilator Settings, Last 8 Hours Ventilator Tidal Volume 500 Setting Ventilator Tidal Volume 500 Setting Ventilator Tidal Volume 500 Setting Ventilator Tidal Volume 500 Setting Ventilator Respiratory Rate 12 Setting Ventilator Respiratory Rate 12 Setting Ventilator Respiratory Rate 12 Setting Ventilator Respiratory Rate 12 Setting Actual Respiratory Rate 19 Actual Respiratory Rate 12 Positive End Expiratory 8 Pressure Positive End Expiratory 8 Pressure Positive End Expiratory 8 Pressure Positive End Expiratory 8 Pressure Positive End Expiratory 8 Pressure Peak Inspiratory Airway 8.6 Pressure Peak Inspiratory Airway 18 Pressure Peak Inspiratory Airway 19 Pressure Peak Inspiratory Airway 20 Pressure Peak Inspiratory Airway 20 Pressure Results - Laboratory Findings CBC and BMP: 12/09/17 03:47 12/09/17 03:47 ABG ABG pH 7.40 pH Units (7.32-7.45) 12/08/17 05:02 ABG pCO2 37 mmHg (35-45) 12/08/17 05:02 ABG pO2 67 mmHg (85-104) L 12/08/17 05:02 ABG O2 Saturation 93 % (95-98) L 12/08/17 05:02 PT/INR, D-dimer PT 12.2 Seconds (9.4-12.1) H 12/06/17 18:55 Abnormal lab findings: Abnormal lab results WBC 15.0 K/mcL (4.3-11.1) H 12/09/17 03:47 RBC 3.80 M/mcL (4.19-5.50) L 12/09/17 03:47 Hgb 11.1 g/dL (12.9-16.9) L 12/09/17 03:47 Hct 33.5 % (37.5-50.1) L 12/09/17 03:47 MPV 8.8 fL (9.4-12.4) L 12/09/17 03:47 Neutrophils # 10.0 K/mcL (1.6-8.9) H 12/09/17 03:47 Reactive Lymphocytes Present (Not Present) A 12/06/17 18:55 PT 12.2 Seconds (9.4-12.1) H 12/06/17 18:55 ABG pO2 67 mmHg (85-104) L 12/08/17 05:02 ABG O2 Saturation 93 % (95-98) L 12/08/17 05:02 BUN 28 mg/dL (6-20) H 12/09/17 03:47 Creatinine 2.00 mg/dL (0.70-1.30) H 12/09/17 03:47 Est GFR ( Amer) 42 (> 60) L 12/09/17 03:47 Est GFR (Non-Af Amer) 35 (> 60) L 12/09/17 03:47 Glucose 115 mg/dL (70-105) H 12/09/17 03:47 POC Glucose 106 mg/dL (70-99) H 12/08/17 20:17 Hemoglobin A1c 6.4 % (-5.6) H 12/07/17 02:49 Serum Total Protein 6.0 g/dL (6.4-8.9) L 12/09/17 03:47 Albumin 3.2 g/dL (3.5-5.7) L 12/09/17 03:47 Urine Blood Small (Negative) H 12/09/17 10:02 U Benzodiazepines Scrn Positive ng/mL (Qvkxuk=187) H 12/06/17 18:37 U Marijuana (THC) Screen Positive ng/mL (Cutoff = 50) H 12/06/17 18:37 - Microbiology Findings Microbiology Findings: Microbiology, Last 48 Hours 12/09/17 10:01 Sputum Culture - Preliminary Aspirate 12/07/17 02:16 Urine Culture - Final Urine,Catheterized No growth. - Clinical Findings Intake & Output: Intake & Output 12/09/17 12/09/17 12/09/17 07:59 15:59 23:59 Intake Total 637 / 637 603 / 603 45 / 45 Output Total 650 / 650 1480 / 1480 700 / 700 Balance -13 / -13 -877 / -877 -655 / -655 - Attending Attestation - Attending Attestation I saw and evaluated this patient and my medical decision-making was reviewed with the Resident Physician. I agree with the documented findings, disposition and treatment plan as described except to the extent set forth below. We independently had [id number] contact with the patient I spent 35 minutes of Critical Care time with this patient. It involved decision making of high complexity to assess, manipulate, and support vital organ system failure and/or to prevent further life threatening deterioration of the patient's condition. The time involved in the performance of separately reportable procedures was not counted toward critical care time. Patient seen and examined at bedside Labs, radiology, chart personally reviewed. Management was reviewed during multidisciplinary critical care rounds. DIGITAL CAMERA TECHNICIAN : Patient not following commands he is intubated and sedated looks pretty agitated. Patient presented with altered mental status and with some seizures. Patient DIGITAL CAMERA TECHNICIAN event is so far negative ,neurology is consulted EEG did not show any focal seizure-like activity or any signs of encephalopathy. 12/08 Patient had a repeat EEG which didnt show any evidence of seizure activity . Patient still not following commands 12/09 Stopped all propfol and Versed kept some precedex and fentanyl patient doesnt follow any commands but he was moving all 4 limbs with out any focal neurological deficit , Got a CT scan today showed no evidence of anoxic injury . Neurology following no new recommendations. Most likely toxic /metabolic encephalopathy might need some time to recover . Pulm: Patient has hilar mass which needs to be further evaluation with CAT scan. Patient has acceptable oxygenation and ventilation with this low tidal volume strategy to continue the same current vent settings. 12/08 Patient has bilateral bibasilar airspace disease concern for pneumonia vs hydrostatic plulmonary edema started on antibiotics. 12/08 Patient has developed most likely aspiration pneumonia sputum cultures was sent to continue zosyn acceptable oxygenation and ventilation. Tried SBT didnt tolerate well . Cards: Patient is hemodynamically stable FEN-GI: Diet according to nutrition Renal: Output were reviewed ID: Concern for aspiration pneumonia to continue on Unasyn. Heme/Onc: Labs reviewed Endo: Glucose Monitored Integ/MSK: Skin Care per routine ICU Nursing Protocol to prevent ulcers. Lines: All lines examined without evidence of infection : Dispo: Critically ill CODE:Full Code
[2017-12-09] MEDS: Chlorhexidine Rinse 15 ML MOUTHWASH MM SCH (08:48)
[2017-12-09] MEDS: Pantoprazole 40 MG VIAL IVP SCH (08:48)
[2017-12-09 10:13] LABS: Bilirubin,Urine Negative (Negative); Blood,Urine Small (Negative); Clarity,Urine Clear (Clear); Color,Urine Yellow (Yellow); Glucose,Urine (UA) Normal (Normal); Ketones,Urine Negative (Negative); Leukocyte Esterase,Urine Negative (Negative); Nitrite,Urine Negative (Negative); PH,Urine 5.5 pH Units (5.0-8.0); Protein,Urine Trace mg/dL (Neg-Trace); Specific Gravity,Urine 1.015 (1.010-1.025); Urobilinogen,Urine Normal (Normal)
[2017-12-09 10:20] LABS: Squamous Epithelial Cell,Urine Few per lpf (None-Few)
[2017-12-09 10:22] LABS: RBC,Urine 0-3 per hpf (0-3); WBC,Urine 0-3 per hpf (0-3)
[2017-12-09 10:23] LABS: Amorphous Sediment,Urine Few (Few); Bacteria,Urine Few per hpf (None-Few)
[2017-12-09] MEDS: Dexmedetomidine HCl 400 MCG/100 ML MLS IVC SCH ×2 (10:23→15:27)
--- NOTE | 2017-12-09 11:14 | EEG/EMG/Oth Biometrics Report ---
EEG Procedure Report Date of procedure: 12/09/17 EEG Procedure: Routine EEG Procedure Note: This is a report of a 21 channel bipolar and referential montage EEG. There is no posterior dominant alpha rhythm identified at any time during the recording. The most notable feature of the recording throughout its entirety is the presence of delta frequencies ranging 3-4 Hz in all leads bilaterally throughout much of the recording. Occasional spindle like activity and vertex sharp waves are identified with vertex consistent with sleep. Photic stimulations performed and does not produce a driving response. The EKG rhythm strip reveals normal sinus rhythm at 60 bpm. Impressions: This EEG recording is abnormal consistent with moderate to severe generalized slowing. This is consistent with severe generalized encephalopathy versus deep stages of sleep. The presence of normal sleep architecture leads me into deflection of deep stages of sleep. There is no epileptiform activity identified during the study. Please correlate clinically.
--- NOTE | 2017-12-09 11:36 | Neurology Progress Note ---
Date of Encounter: 12/09/17 Time of Encounter: 11:34 Assessment and Plan (1) Hypertensive encephalopathy Current Visit: Yes Status: Acute The patient from a neurologic perspective remains agitated and unresponsive. He thrashes and moves about when the sedation is lightened. However I see no evidence of a primary neurologic entity. WBCs are declining, he has no nuchal rigidity. EEG was negative for seizure activity. I will obtain another CT scan of the brain to rule out evidence of anoxic brain injury. Subjective Principal diagnosis: hypertensive encephalopathy Interval history: The chart was reviewed, pt was seen and examined. and continuous improvement intern present in the room. There has been no change from a neurologic perspective. His sedation has been reduced and he is a bit more agitated and moving around in the bed. He moves all 4 extremities. His eyes are open however rolled up in his head. He is not following commands. WBCs are declining. EEG completed yesterday revealed moderate to severe generalized encephalopathy versus sleep secondary to sedation. I am inclined to go with the latter. Objective - Constitutional Vitals: Temp Pulse Resp BP Pulse Ox 99.8 F H 88 17 98/69 98 12/09/17 08:00 12/09/17 09:00 12/09/17 11:16 12/09/17 11:16 12/09/17 11:16 - Neurological Exam Motor Examination: Present: other (No focal or lateralized deficits. Patient moves all 4 extremities when manipulated. He is not following commands however. No involuntary movements are identified.) Posture: Present: other (No posturing is present.) Reflex and gait examination: other (No clonus or Babinski signs are present. Deep tendon reflexes are diminished throughout.) Mental Status Examination: Present: does not follow commands, agitated. Absent : follows commands appropriately (Patient not following commands not making eye contact.) Cranial nerve examination: Present: PERRL (Pupils are pinpoint bilaterally). Absent: corneal reflexes brisk symmetrically (Corneal reflexes are present however are not brisk.) - VTE Documentation of Mechanical Device: Intermittent pneumatic compression device Results - Laboratory Findings CBC and BMP: 12/09/17 03:47 12/09/17 03:47 Abnormal lab findings: Abnormal lab results WBC 15.0 K/mcL (4.3-11.1) H 12/09/17 03:47 RBC 3.80 M/mcL (4.19-5.50) L 12/09/17 03:47 Hgb 11.1 g/dL (12.9-16.9) L 12/09/17 03:47 Hct 33.5 % (37.5-50.1) L 12/09/17 03:47 MPV 8.8 fL (9.4-12.4) L 12/09/17 03:47 Neutrophils # 10.0 K/mcL (1.6-8.9) H 12/09/17 03:47 Reactive Lymphocytes Present (Not Present) A 12/06/17 18:55 PT 12.2 Seconds (9.4-12.1) H 12/06/17 18:55 ABG pO2 67 mmHg (85-104) L 12/08/17 05:02 ABG O2 Saturation 93 % (95-98) L 12/08/17 05:02 BUN 28 mg/dL (6-20) H 12/09/17 03:47 Creatinine 2.00 mg/dL (0.70-1.30) H 12/09/17 03:47 Est GFR ( Amer) 42 (> 60) L 12/09/17 03:47 Est GFR (Non-Af Amer) 35 (> 60) L 12/09/17 03:47 Glucose 115 mg/dL (70-105) H 12/09/17 03:47 POC Glucose 106 mg/dL (70-99) H 12/08/17 20:17 Hemoglobin A1c 6.4 % (-5.6) H 12/07/17 02:49 Serum Total Protein 6.0 g/dL (6.4-8.9) L 12/09/17 03:47 Albumin 3.2 g/dL (3.5-5.7) L 12/09/17 03:47 Urine Blood Small (Negative) H 12/09/17 10:02 U Benzodiazepines Scrn Positive ng/mL (Tfrezm=290) H 12/06/17 18:37 U Marijuana (THC) Screen Positive ng/mL (Cutoff = 50) H 12/06/17 18:37 Consult Discharge Plan - Plan Referrals: Anshul Barba MD [Primary Care Provider] -
[2017-12-09] MEDS ORDERED: Ipratropium/Albuterol Neb 3 ML IH PRN (11:50)
[2017-12-09] MEDS ORDERED: Ipratropium/Albuterol Neb 3 ML ONE (11:53)
--- NOTE | 2017-12-09 14:11 | Event Note ---
Date of Encounter: 12/09/17 Time of Encounter: 14:07 Family was made aware of the latest CT head results showing no acute abnormalities. They became upset and wanted to know the next steps in care. It was explained to them that we would continue antibiotics, follow blood work, and CXR for possible pneumonia. The family insists on the patient being transferred to [place] for further care.
--- NOTE | 2017-12-09 15:07 | Discharge Summary ---
<LisandraCody darbyJessie E - Last Filed: 12/09/17 15:41> Orders not resulted at time of discharge: Pending orders 12/07/17 11:47 MR head/brain w con [MR] Routine 12/08/17 09:29 EKG [ECG 12 lead ECG] [ECG] Stat 12/09/17 10:01 Culture,Sputum with Gram Stain [RM] Stat Date of Encounter: 12/09/17 Time of Encounter: 15:07 - Discharge Diagnosis (1) Seizure Priority: Primary Status: Acute Comments: Neurology has been consulted. - Initial EEG did not show any epileptiform activity, but on re-evalation on they saw what might be myclonic activity around his eyes so ordered a repeat EEG. - Neurology ordered MRI, but pt cannot go to MRI on any drips and cannot come off sedation at this time as he becomes agitated - PT's repeat EKG showed QT >500 so we cannot add seroquel or haldol in an attempt to d/c precedex - Pt is sedated and ventilated at this time, continue sedation and monitor for seizure activity (2) Leukocytosis Priority: Secondary Status: Acute Comments: WBC count on admission 24.8, yesterday 15.5, today 15. PAtient had low grade fevers overnight Continue of Unasyn for sinusitis If patient decompensates will broaden coverage to VAncomycin and Zosyn Qualifiers: Leukocytosis type: bandemia Qualified Code(s): D72.825 - Bandemia (3) Hypertension Priority: Secondary Status: Chronic Comments: Blood pressure this morning was 136/95 Labetalol PRN for SBP >180 Will continue to monitor Qualifiers: Hypertension type: essential hypertension Qualified Code(s): I10 - Essential (primary) hypertension (4) DVT prophylaxis Priority: Secondary Status: Acute Comments: low dose heparin 5000 units Q8, SCDs - Discharge Medications Home Medications: Duloxetine HCl [Cymbalta] 60 mg PO BID 08/05/17 [History] Gabapentin [Neurontin] 600 mg PO HS 08/05/17 [History] Losartan [Cozaar] 100 mg PO DAILY 08/05/17 [History] Tramadol HCl [Ultram] 50 mg PO QID PRN 08/05/17 [History] Loperamide [Imodium] 2 mg PO Q4HR PRN #20 capsule 05/18/18 [Rx] Metoprolol [Lopressor] 12.5 mg PO BID #30 tablet 08/10/17 [Rx] OxyCODONE Immed Rel [Roxicodone 20 MG] 20 mg PO Q4-6H PRN 12/07/17 [History] Tizanidine HCl [Tizanidine HCl] 4 mg PO TID PRN 12/07/17 [History] Allergies/Adverse Reactions: 3 Allergy/AdvReac Type Severity Reaction Status Date / Time codeine Allergy Rash Verified 08/05/17 15:37 Labs on day of discharge: Labs from last 24 hours 12/09/17 12/09/17 12/09/17 10:02 10:02 10:02 WBC RBC Hgb Hct MCV MCH MCHC RDW Plt Count MPV Immature Gran % Seg Neutrophils % Lymphocytes % Monocytes % Eosinophils % Basophils % Neutrophils # Lymphocytes # Monocytes # Eosinophils # Basophils # Sodium Potassium Chloride Carbon Dioxide BUN Creatinine Est GFR ( Amer) Est GFR (Non-Af Amer) BUN/Creatinine Ratio Glucose POC Glucose Calculated Osmolality Calcium Phosphorus Magnesium Total Bilirubin AST ALT Alkaline Phosphatase Serum Total Protein Albumin Globulin Albumin/Globulin Ratio Urine Color Yellow Urine Clarity Clear Urine pH 5.5 Ur Specific Paradis 1.015 Urine Protein Trace Urine Glucose (UA) Normal Urine Ketones Negative Urine Blood Small H Urine Nitrite Negative Urine Bilirubin Negative Urine Urobilinogen Normal Ur Leukocyte Esterase Negative Urine Microscopic RBC 0-3 Urine Microscopic WBC 0-3 Ur Squamous Epith Cells Few Amorphous Sediment Few Urine Bacteria Few Ur Culture Indicated? NO Urine Creatinine < 1 Urine Sodium < 10.0 12/09/17 12/09/17 12/08/17 03:47 03:47 20:17 WBC 15.0 H RBC 3.80 L Hgb 11.1 L Hct 33.5 L MCV 88.2 MCH 29.2 MCHC 33.1 RDW 13.7 Plt Count 148 MPV 8.8 L Immature Gran % 0.5 Seg Neutrophils % 66.5 Lymphocytes % 23.2 Monocytes % 8.5 Eosinophils % 1.0 Basophils % 0.3 Neutrophils # 10.0 H Lymphocytes # 3.5 Monocytes # 1.3 Eosinophils # 0.2 Basophils # 0.0 Sodium 138 Potassium 4.1 Chloride 107 Carbon Dioxide 23 BUN 28 H Creatinine 2.00 H Est GFR ( Amer) 42 L Est GFR (Non-Af Amer) 35 L BUN/Creatinine Ratio 14 Glucose 115 H POC Glucose 106 H Calculated Osmolality 292 Calcium 8.6 Phosphorus 4.1 Magnesium 2.1 Total Bilirubin 0.5 AST 29 ALT 17 Alkaline Phosphatase 90 Serum Total Protein 6.0 L Albumin 3.2 L Globulin 2.8 Albumin/Globulin Ratio 1.1 Urine Color Urine Clarity Urine pH Ur Specific Paradis Urine Protein Urine Glucose (UA) Urine Ketones Urine Blood Urine Nitrite Urine Bilirubin Urine Urobilinogen Ur Leukocyte Esterase Urine Microscopic RBC Urine Microscopic WBC Ur Squamous Epith Cells Amorphous Sediment Urine Bacteria Ur Culture Indicated? Urine Creatinine Urine Sodium 12/08/17 12/08/17 12/08/17 16:18 12:00 07:25 WBC RBC Hgb Hct MCV MCH MCHC RDW Plt Count MPV Immature Gran % Seg Neutrophils % Lymphocytes % Monocytes % Eosinophils % Basophils % Neutrophils # Lymphocytes # Monocytes # Eosinophils # Basophils # Sodium Potassium Chloride Carbon Dioxide BUN Creatinine Est GFR ( Amer) Est GFR (Non-Af Amer) BUN/Creatinine Ratio Glucose POC Glucose 156 H 129 H 149 H Calculated Osmolality Calcium Phosphorus Magnesium Total Bilirubin AST ALT Alkaline Phosphatase Serum Total Protein Albumin Globulin Albumin/Globulin Ratio Urine Color Urine Clarity Urine pH Ur Specific [place] Urine Protein Urine Glucose (UA) Urine Ketones Urine Blood Urine Nitrite Urine Bilirubin Urine Urobilinogen Ur Leukocyte Esterase Urine Microscopic RBC Urine Microscopic WBC Ur Squamous Epith Cells Amorphous Sediment Urine Bacteria Ur Culture Indicated? Urine Creatinine Urine Sodium 12/08/17 03:31 WBC RBC Hgb Hct MCV MCH MCHC RDW Plt Count MPV Immature Gran % Seg Neutrophils % Lymphocytes % Monocytes % Eosinophils % Basophils % Neutrophils # Lymphocytes # Monocytes # Eosinophils # Basophils # Sodium Potassium Chloride Carbon Dioxide BUN Creatinine Est GFR ( Amer) Est GFR (Non-Af Amer) BUN/Creatinine Ratio Glucose POC Glucose 135 H Calculated Osmolality Calcium Phosphorus Magnesium Total Bilirubin AST ALT Alkaline Phosphatase Serum Total Protein Albumin Globulin Albumin/Globulin Ratio Urine Color Urine Clarity Urine pH Ur Specific [place] Urine Protein Urine Glucose (UA) Urine Ketones Urine Blood Urine Nitrite Urine Bilirubin Urine Urobilinogen Ur Leukocyte Esterase Urine Microscopic RBC Urine Microscopic WBC Ur Squamous Epith Cells Amorphous Sediment Urine Bacteria Ur Culture Indicated? Urine Creatinine Urine Sodium Preliminary micro results at discharge 12/09/17 10:01 Sputum Culture - Preliminary Aspirate 12/06/17 22:15 Blood Culture - Preliminary Peripheral Venipuncture Culture is incubating and being continuously monitored for growth. Final report to follow. 12/06/17 22:27 Blood Culture - Preliminary Peripheral Venipuncture Culture is incubating and being continuously monitored for growth. Final report to follow. - Impressions ITS Impressions Echocardiogram 12/07/17 09:44 Impressions: LVEF 55-60%. Normal LV chamber size, wall thickness and function. Mild left ventricular diastolic dysfunction. Normal right ventricular structure and function. No evidence of pulmonary hypertension. No significant valvular dysfunction. Left Ventricular Wall Motion: Rest Echo Findings All wall segments showed normal motion. Findings: Study Quality * Technically adequate exam. ECG Findings * Normal sinus rhythm. Left Ventricle * LVEF 55-60%. * Normal LV chamber size, wall thickness and function. * Mild left ventricular diastolic dysfunction. Right Ventricle * Normal right ventricular structure and function. Left Atrium * Mildly dilated left atrium. Right Atrium * Normal right atrial size. Aortic Valve * Aortic valve not well visualized. * No aortic regurgitation. * No aortic stenosis. Mitral Valve * Normal mitral valve structure and function. * No mitral stenosis. * No mitral regurgitation. Tricuspid Valve * Normal tricuspid valve structure and function. * Trace tricuspid regurgitation. * No evidence of pulmonary hypertension. Pulmonic Valve * Pulmonic valve is not well visualized. * No pulmonic regurgitation. Aorta * Normally sized aortic root. Pericardium * The pericardium appears normal. IVC * Normal IVC dimensions and inspiratory collapse. Pulmonary Artery * Normal visualized portions of the main pulmonary artery. Chest X-Ray 12/08/17 04:00 IMPRESSION: Increased diffuse bilateral airspace opacities could relate to edema, pneumonia, or ARDS. Unchanged right infrahilar masslike opacity. Consider CT for further evaluation. D/ / Gustavo Deras MD / Gustavo Deras MD Interpreting Provider: Gustavo Deras MD Chest X-Ray 12/09/17 07:12 IMPRESSION: Slight increased airspace disease centrally and left lower lobe. The right parahilar portion is somewhat masslike. This could represent underlying mass or adenopathy. Follow-up is recommended to document complete resolution. D/ / Ruel Warren MD / Ruel Warren MD Interpreting Provider: Ruel Warren MD Head CT 12/09/17 11:45 IMPRESSION: No acute intracranial abnormality. D/ / Dale Dolan MD / Dale Dolan MD Interpreting Provider: Dale Dolan MD Date of admission: 12/06/17 21:09 Primary care physician: Anshul Barba MD Consults: 12/06/17 21:46 Consult to Pulmonology [CONS] Routine Consulting Provider: [facility] Reason for Consult: vent management Call Completed: Yes 12/07/17 07:10 Consult to Neurology [CONS] Routine Consulting Provider: [facility] Reason for Consult: seizures, ams, MRI? Call Completed: Yes 12/07/17 09:27 Consult to Critical Care [CONS] Stat Consulting Provider: [facility] Reason for Consult: Critical care management Call Completed: Yes 12/07/17 10:13 Consult to Interpret Exam [CONS] Routine Consulting Provider: Akash Quintanilla Consult to Interpret Exam: Interpret EEG 12/07/17 11:34 consult to crnp [Consult to Nutrition] [CONS] Routine Comment: Consulting Provider: NUTRITION Reason for Dietary Consult: Tube Feed Start & Manage 12/08/17 14:26 Consult to Interpret Exam [CONS] Routine Consulting Provider: Akash Quintanilla Consult to Interpret Exam: Interpret Sleep Study Discharging clinician: Freddie Moss Anticipated date of discharge: 12/09/17 - Patient Status Disposition: Transfer Short-Term Hosp Condition: Fair Overall status at discharge: patient is not back to baseline - Discharge Instructions Follow Up With: Anshul Barba MD [Primary Care Provider] - - Diet and Activity Activity: other (patient is NPO, sedated and ventilated) Diet: other (NPO, tube feeds held this morning) - Hospital Course Hospital course: Mr. Giang is a 56 year old male with a PMH of HTN, HLD, Oxycodone dependence for chronic back pain, REGAN, and obesity who presented to the ED after a witnessed seizure. Patient was intubated in the ED to protect his airway and sedated upon admission to the ICU. All history of present illness was obtained from the medical record. Of note, patient had similar seizure episode in July 2017 but does not currently take any antiepileptic therapy other than Gabapentin. Patient's labs revealed leukocytosis WBC 24.8 with left shift, hypokalemia 3.3, normal ammonia level, negative alcohol level, normal CK level, and normal TSH level. He is afebrile and did not have nuchal rigidity upon arrival to ED. Vital signs revealed elevated blood pressure 215/126 and patient was started on Cardene drip. His HR was 200 bpm and rhythm strip revealed narrow complex SVT. Patient was cardioverted in the ED prior to transfer to the ICU. CT brain revealed no acute abnormality and redemonstration of sinusitis. Currently in NSR with normal rate. BC, MRSA pending, Lactic was 2.0 at 0249, repeat lactic acid 0.9. UDS positive for BDZ and THC. Neurology consulted, EEG failed to demonstrate seizure activity, Brain MRI pending when patient is more stable. Started Unasyn 3G Q6 for sinusitis. Will need Chest CT when more stable. Today was noticed to have more white, thick, secretions from the ET tube. He was tried on CPAP for 2 hours but he had to continue to be on propofol due to agitation. A second CT of the head was obtained by neurology to rule out anoxic brain injury, thi showed no acute abnormalities. Family was concerned and upset with his treatment and wish to have the patient transferred to [place] for further care. When they were talking to the nurse they were belligerent to the nurse and very angry. I spoke with Dr. Banks at [facility] in [facility] who agreed to the transfer of the patient to their facility. - Time Spent with Patient Total time spent providing and/or coordinating discharge services: Physical Examination Vital Signs: Vital Signs, Last 4 Hours Resp BP Pulse Ox 12/09/17 14:27 19 103/67 97 12/09/17 13:13 15 125/92 96 12/09/17 12:01 22 98 12/09/17 11:16 17 98/69 98 General appearance: other (ventilated and sedated) Eyes: nonicteric ENT: oropharynx dry Neck: no lymphadenopathy Effort: normal Auscultation: bilateral: diminished breath sounds (lower lobes), wheezes (upper lobes) Cardiovascular: regular rate and rhythm Gastrointestinal: normoactive bowel sounds, non-distended Integumentary: normal Extremities: no cyanosis, no edema, no clubbing unable to assess due to mental status - VTE Documentation of Mechanical Device: Intermittent pneumatic compression device <Freddie Moss - Last Filed: 12/09/17 21:38> Orders not resulted at time of discharge: Pending orders 12/07/17 11:47 MR head/brain w con [MR] Routine 12/08/17 09:29 EKG [ECG 12 lead ECG] [ECG] Stat 12/09/17 10:01 Culture,Sputum with Gram Stain [RM] Stat Date of Encounter: 12/09/17 Labs on day of discharge: Labs from last 24 hours 12/09/17 12/09/17 12/09/17 10:02 10:02 10:02 WBC RBC Hgb Hct MCV MCH MCHC RDW Plt Count MPV Immature Gran % Seg Neutrophils % Lymphocytes % Monocytes % Eosinophils % Basophils % Neutrophils # Lymphocytes # Monocytes # Eosinophils # Basophils # Sodium Potassium Chloride Carbon Dioxide BUN Creatinine Est GFR ( Amer) Est GFR (Non-Af Amer) BUN/Creatinine Ratio Glucose POC Glucose Calculated Osmolality Calcium Phosphorus Magnesium Total Bilirubin AST ALT Alkaline Phosphatase Serum Total Protein Albumin Globulin Albumin/Globulin Ratio Urine Color Yellow Urine Clarity Clear Urine pH 5.5 Ur Specific Paradis 1.015 Urine Protein Trace Urine Glucose (UA) Normal Urine Ketones Negative Urine Blood Small H Urine Nitrite Negative Urine Bilirubin Negative Urine Urobilinogen Normal Ur Leukocyte Esterase Negative Urine Microscopic RBC 0-3 Urine Microscopic WBC 0-3 Ur Squamous Epith Cells Few Amorphous Sediment Few Urine Bacteria Few Ur Culture Indicated? NO Urine Creatinine < 1 Urine Sodium < 10.0 12/09/17 12/09/17 12/08/17 03:47 03:47 20:17 WBC 15.0 H RBC 3.80 L Hgb 11.1 L Hct 33.5 L MCV 88.2 MCH 29.2 MCHC 33.1 RDW 13.7 Plt Count 148 MPV 8.8 L Immature Gran % 0.5 Seg Neutrophils % 66.5 Lymphocytes % 23.2 Monocytes % 8.5 Eosinophils % 1.0 Basophils % 0.3 Neutrophils # 10.0 H Lymphocytes # 3.5 Monocytes # 1.3 Eosinophils # 0.2 Basophils # 0.0 Sodium 138 Potassium 4.1 Chloride 107 Carbon Dioxide 23 BUN 28 H Creatinine 2.00 H Est GFR ( Amer) 42 L Est GFR (Non-Af Amer) 35 L BUN/Creatinine Ratio 14 Glucose 115 H POC Glucose 106 H Calculated Osmolality 292 Calcium 8.6 Phosphorus 4.1 Magnesium 2.1 Total Bilirubin 0.5 AST 29 ALT 17 Alkaline Phosphatase 90 Serum Total Protein 6.0 L Albumin 3.2 L Globulin 2.8 Albumin/Globulin Ratio 1.1 Urine Color Urine Clarity Urine pH Ur Specific Paradis Urine Protein Urine Glucose (UA) Urine Ketones Urine Blood Urine Nitrite Urine Bilirubin Urine Urobilinogen Ur Leukocyte Esterase Urine Microscopic RBC Urine Microscopic WBC Ur Squamous Epith Cells Amorphous Sediment Urine Bacteria Ur Culture Indicated? Urine Creatinine Urine Sodium 12/08/1718 12/08/17 16:18 12:00 07:25 WBC RBC Hgb Hct MCV MCH MCHC RDW Plt Count MPV Immature Gran % Seg Neutrophils % Lymphocytes % Monocytes % Eosinophils % Basophils % Neutrophils # Lymphocytes # Monocytes # Eosinophils # Basophils # Sodium Potassium Chloride Carbon Dioxide BUN Creatinine Est GFR ( Amer) Est GFR (Non-Af Amer) BUN/Creatinine Ratio Glucose POC Glucose 156 H 129 H 149 H Calculated Osmolality Calcium Phosphorus Magnesium Total Bilirubin AST ALT Alkaline Phosphatase Serum Total Protein Albumin Globulin Albumin/Globulin Ratio Urine Color Urine Clarity Urine pH Ur Specific [place] Urine Protein Urine Glucose (UA) Urine Ketones Urine Blood Urine Nitrite Urine Bilirubin Urine Urobilinogen Ur Leukocyte Esterase Urine Microscopic RBC Urine Microscopic WBC Ur Squamous Epith Cells Amorphous Sediment Urine Bacteria Ur Culture Indicated? Urine Creatinine Urine Sodium 12/08/17 03:31 WBC RBC Hgb Hct MCV MCH MCHC RDW Plt Count MPV Immature Gran % Seg Neutrophils % Lymphocytes % Monocytes % Eosinophils % Basophils % Neutrophils # Lymphocytes # Monocytes # Eosinophils # Basophils # Sodium Potassium Chloride Carbon Dioxide BUN Creatinine Est GFR ( Amer) Est GFR (Non-Af Amer) BUN/Creatinine Ratio Glucose POC Glucose 135 H Calculated Osmolality Calcium Phosphorus Magnesium Total Bilirubin AST ALT Alkaline Phosphatase Serum Total Protein Albumin Globulin Albumin/Globulin Ratio Urine Color Urine Clarity Urine pH Ur Specific [place] Urine Protein Urine Glucose (UA) Urine Ketones Urine Blood Urine Nitrite Urine Bilirubin Urine Urobilinogen Ur Leukocyte Esterase Urine Microscopic RBC Urine Microscopic WBC Ur Squamous Epith Cells Amorphous Sediment Urine Bacteria Ur Culture Indicated? Urine Creatinine Urine Sodium Preliminary micro results at discharge 12/09/17 10:01 Sputum Culture - Preliminary Aspirate 12/06/17 22:15 Blood Culture - Preliminary Peripheral Venipuncture Culture is incubating and being continuously monitored for growth. Final report to follow. 12/06/17 22:27 Blood Culture - Preliminary Peripheral Venipuncture Culture is incubating and being continuously monitored for growth. Final report to follow. - Impressions ITS Impressions Echocardiogram 12/07/17 09:44 Impressions: LVEF 55-60%. Normal LV chamber size, wall thickness and function. Mild left ventricular diastolic dysfunction. Normal right ventricular structure and function. No evidence of pulmonary hypertension. No significant valvular dysfunction. Left Ventricular Wall Motion: Rest Echo Findings All wall segments showed normal motion. Findings: Study Quality * Technically adequate exam. ECG Findings * Normal sinus rhythm. Left Ventricle * LVEF 55-60%. * Normal LV chamber size, wall thickness and function. * Mild left ventricular diastolic dysfunction. Right Ventricle * Normal right ventricular structure and function. Left Atrium * Mildly dilated left atrium. Right Atrium * Normal right atrial size. Aortic Valve * Aortic valve not well visualized. * No aortic regurgitation. * No aortic stenosis. Mitral Valve * Normal mitral valve structure and function. * No mitral stenosis. * No mitral regurgitation. Tricuspid Valve * Normal tricuspid valve structure and function. * Trace tricuspid regurgitation. * No evidence of pulmonary hypertension. Pulmonic Valve * Pulmonic valve is not well visualized. * No pulmonic regurgitation. Aorta * Normally sized aortic root. Pericardium * The pericardium appears normal. IVC * Normal IVC dimensions and inspiratory collapse. Pulmonary Artery * Normal visualized portions of the main pulmonary artery. Chest X-Ray 12/08/17 04:00 IMPRESSION: Increased diffuse bilateral airspace opacities could relate to edema, pneumonia, or ARDS. Unchanged right infrahilar masslike opacity. Consider CT for further evaluation. D/ / Gustavo Deras MD / Gustavo Deras MD Interpreting Provider: Gustavo Deras MD Chest X-Ray 12/09/17 07:12 IMPRESSION: Slight increased airspace disease centrally and left lower lobe. The right parahilar portion is somewhat masslike. This could represent underlying mass or adenopathy. Follow-up is recommended to document complete resolution. D/ / Ruel Warren MD / Ruel Warren MD Interpreting Provider: Ruel Warren MD Head CT 12/09/17 11:45 IMPRESSION: No acute intracranial abnormality. D/ / Dale Dolan MD / Dale Dolan MD Interpreting Provider: Dale Dolan MD Date of admission: 12/06/17 21:09 Primary care physician: Anshul Barba MD Consults: 12/06/17 21:46 Consult to Pulmonology [CONS] Routine Consulting Provider: [facility] Reason for Consult: vent management Call Completed: Yes 12/07/17 07:10 Consult to Neurology [CONS] Routine Consulting Provider: [facility] Reason for Consult: seizures, ams, MRI? Call Completed: Yes 12/07/17 09:27 Consult to Critical Care [CONS] Stat Consulting Provider: [facility] Reason for Consult: Critical care management Call Completed: Yes 12/07/17 10:13 Consult to Interpret Exam [CONS] Routine Consulting Provider: Akash Quintanilla Consult to Interpret Exam: Interpret EEG 12/07/17 11:34 consult to crnp [Consult to Nutrition] [CONS] Routine Comment: Consulting Provider: NUTRITION Reason for Dietary Consult: Tube Feed Start & Manage 12/08/17 14:26 Consult to Interpret Exam [CONS] Routine Consulting Provider: Akash Quintanilla Consult to Interpret Exam: Interpret Sleep Study - Hospital Course Hospital course: I agree with above resident documentation. - Time Spent with Patient Total time spent providing and/or coordinating discharge services:
[2017-12-09] MEDS: FentaNYL (PF) 2,500 MCG in EMPTY BAG 1 EACH IVC SCH (15:31)
[2017-12-09 16:56] VITALS: BP 93/57
[2017-12-10 09:43] LABS: VBG Ionized Calcium 1.15 mmol/L (1.15-1.35)
[2017-12-10 09:44] LABS: VBG Ionized Calcium 1.13 mmol/L (1.15-1.35)
--- NOTE | 2017-12-11 17:56 | Electrocardiograph Report ---
[place] [id number] Test Date: 2017-12-08 Pat Name: Iam Giang Department: 112 Room: 11 Gender: M Director [place]: : [id number] Requested By: Amada Lobo Order Number: [id number] Reading MD: Martha Mims Measurements Intervals [place] Rate: 63 P: 54 ID: [id number] QRS: 79 QRSD: 96 T: 66 QT: 530 QTc: 538 Interpretive Statements SINUS RHYTHM PROLONGED QT INTERVAL Electronically Signed On 12-11-2017 17:55:28 EDT by Martha Mims
== END 2017-12-09 16:36 | disposition short-term general hospital (02) | DRG 92 ==
LOC: ICNU 18:05 → EMEROOARM 18:05 → ICNU 21:24
PROVIDERS: ADMIT Family Medicine; ATTEND Family Medicine